=== PATIENT | male | born 1965 | race Caucasian/White ===

== ENCOUNTER 2019-04-21 12:41 | Inpatient (IN) | payer MEDICAID, OTHER ==
[2019-04-21] VITALS (11 sets, daily range): BP systolic 104–135; BP diastolic 63–76; O2SAT 95–96
[~2019-04-21] VITALS: Ht 172.7 cm; Wt 103.2 kg
[2019-04-21] MEDS ORDERED: ONDANSETRON 4MG/2ML VIAL (J2405) As Ordered ONE (12:56)
[2019-04-21] MEDS ORDERED: MORPHINE 2 MG/ML 1ML SYRINGE (J2270) As Ordered ONE (12:56)
[2019-04-21] MEDS ORDERED: NS 1,000 ML IV ONE ×2 (13:00→13:15)
[2019-04-21] MEDS ORDERED: ONDANSETRON 4MG/2ML VIAL (J2405) IV ONE (13:00)
[2019-04-21] MEDS: MORPHINE 2 MG/ML 1ML SYRINGE (J2270) IV PRN ×2 (13:01→13:24)
[2019-04-21] MEDS ORDERED: ISOVUE-370 76% 100ML VIAL (Q9967) As Ordered ONE ×2 (13:06→14:05)
[2019-04-21] MEDS ORDERED: HYDROMORPHONE HCL 0.5 MG/ 0.5 ML SYRINGE (J1170 PER 1) IV PRN (13:30)
[2019-04-21 13:42] LABS: ABG BASE EXCESS -0.9 (-2.0-2.0); ABG HCO3 23.3 MEQ/L (22.0-26.0); ABG O2 SATURATION 94.8 % (95.0-99.0); ABG PARTIAL PRESSURE CO2 37.5 mmHg (35.0-45.0); ABG PARTIAL PRESSURE O2 67.8 mmHg (75.0-100.0); ABG STANDARD HCO3 23.7 MEQ/L (22.0-26.0); ABG TOTAL CO2 24.4 MEQ/L (22.0-29.0); ABG pH (ARTERIAL) 7.411 UNITS (7.350-7.450)
[2019-04-21 13:58] LABS: BASO % 0.2 % (0.0-1.0); EOS % 0.1 % (0.0-3.0); HEMATOCRIT 48.6 % (42.0-52.0); HEMOGLOBIN 16.5 g/dl (13.5-17.5); LYMPH # 0.7 10^3/uL (1.5-4.5); MEAN CORPUSCULAR HEMOGLOBIN 32.6 pg (27.0-33.0); MONO # 1.2 10^3/uL (0.0-0.8); MONO % 6.8 % (0.0-5.0); NEUTROPHILS # 15.5 10^3/uL (1.8-7.7); NEUTROPHILS % 88.5 % (36.0-66.0); PLATELET COUNT, AUTOMATED 225 10^3/uL (150-450); RED BLOOD COUNT 5.06 10^6/uL (4.30-6.10); WHITE BLOOD COUNT 17.6 10^3/uL (4.0-10.0)
--- NOTE | 2019-04-21 14:04 | REP ---
Chest one-view HISTORY: Trauma Comparison: None Apical pleural thickening is present on the right. The lungs are otherwise clear. The heart is normal in size. The pulmonary vasculature is normal in appearance. There are fractures of the right second through fifth ribs. Impression: There are fractures of the right second through fifth ribs. Electronically Signed by Adriano Dan MD 04/21/2019 01:55 P
[2019-04-21 14:08] LABS: INR 0.96; PARTIAL THROMBOPLASTIN TIME 26.9 SECONDS (25.4-37.6); PROTHROMBIN TIME 12.9 SECONDS (12.1-14.4)
--- NOTE | 2019-04-21 14:15 | REP ---
PELVIS, SINGLE VIEW: AP view of the pelvis is performed. There is no evidence of acute fracture, dislocation, or intrinsic bone disease. IMPRESSION: No evidence of acute fracture or dislocation. Electronically Signed by Javi Angel MD 04/23/2019 08:35 A
[2019-04-21 14:22] LABS: ALBUMIN 3.5 GM/DL (3.2-5.2); ALT/SGPT 41 U/L (12-78); AMYLASE 16 U/L (25-115); BILIRUBIN,DIRECT 0.1 MG/DL (0.0-0.2); BILIRUBIN,TOTAL 0.4 MG/DL (0.2-1.0); BLOOD UREA NITROGEN 11 MG/DL (7-18); CALCIUM LEVEL 8.5 MG/DL (8.5-10.1); CARBON DIOXIDE LEVEL 29 MEQ/L (21-32); CHLORIDE LEVEL 100 MEQ/L (98-107); CPK CREATINE PHOSPHOKINASE 492 U/L (39-308); CREATININE FOR GFR 1.14 MG/DL (0.70-1.30); ETHYL ALCOHOL (ETHANOL) < 0.003 % (0.000-0.010); GLOMERULAR FILTRATION RATE > 60.0 (>56); GLUCOSE, FASTING 265 MG/DL (70-100); LIPASE 65 U/L (73-393); MB/CK RELATIVE INDEX 3.15 (< OR =4); SODIUM LEVEL 135 MEQ/L (136-145); TOTAL PROTEIN 7.5 GM/DL (6.4-8.2); TROPONIN I < 0.02 NG/ML (< 0.10)
--- NOTE | 2019-04-21 14:28 | REP ---
CT Head without contrast HISTORY: Trauma COMPARISON: None There is no intraparenchymal hemorrhage, acute infarct, mass or midline shift. The ventricular system is normal in appearance. There is no extra cerebral collection. There is no fracture. Mucosal thickening is present in the left ethmoid and maxillary sinuses. A retention cyst is present in the right maxillary sinus. IMPRESSION: There is no intracranial lesion. Electronically Signed by Adriano Dan MD 04/21/2019 02:20 P
--- NOTE | 2019-04-21 14:37 | REP ---
CT cervical spine without contrast HISTORY: Trauma COMPARISON: None There is no acute fracture or subluxation. A disc bulge is present at the C2-3 level. Disc bulges with associated osteophyte formation are present at the C3-4 through C6-7 levels. These findings produce minimal to mild narrowing of the spinal canal. Uncinate process and/or facet hypertrophy are present at the C3-4 through C6-7 levels. These findings produce minimal to severe narrowing of the neural foramina. C2-3 through C6-7 intervertebral discs are decreased in height consistent with disc degeneration. Subchondral cysts are present in the C6 vertebral body. IMPRESSION: 1. There is no acute fracture or subluxation. 2. There is cervical spondylosis at the C2-3 through C6-7 levels. Electronically Signed by Adriano Dan MD 04/21/2019 02:28 P
--- NOTE | 2019-04-21 15:05 | REP ---
CT CHEST WITHOUT IV CONTRAST: CT chest performed without IV contrast. Sagittal and coronal reconstruction images are performed. There are bilateral fibroatelectatic changes. There is no pneumothorax. Scattered subcentimeter and mediastinal lymph nodes are present. Heart is normal in size. There is no pericardial effusion. There is a large hiatal hernia. There is a tiny right pleural effusion. There are fractures of the right second through ninth ribs as well as the right eleventh rib. The right fourth, sixth and seventh ribs are fractured in two placed. There is also a fracture of the right acromion. No compression fracture is seen of the thoracic vertebral bodies. There are mild diffuse degenerative changes. There is a sebaceous cyst in the left upper chest wall in a subcutaneous location, approximately 4 cm in diameter, and one in the right posterior chest wall 3.5 cm in diameter. IMPRESSION: Bilateral fibroatelectatic changes. Tiny right pleural effusion. No pneumothorax. Multiple right rib fractures, with fractures noted of the right second through ninth ribs as well as right eleventh rib. The right fourth, sixth and seventh ribs are fractured in two places. There is a fracture of the right acromion. Electronically Signed by Javi Angel MD 04/23/2019 08:39 A
--- NOTE | 2019-04-21 15:12 | REP ---
CT ABDOMEN AND PELVIS WITHOUT IV CONTRAST: CT abdomen and pelvis performed without oral or IV contrast. Sagittal and coronal reconstruction images are performed. The liver, spleen, and left adrenal are grossly unremarkable. The pancreas is grossly unremarkable. There is an oval nodule with a right adrenal gland measuring about 4 x 2 cm. This is nonspecific. The kidneys appear intact with a cyst of the mid left kidney measuring approximately 1.4 cm in diameter. There is no hydronephrosis. No perinephric fluid is seen. There is atherosclerotic calcification of the abdominal aorta without aneurysm. I see no adenopathy, free air or free fluid. No bowel wall thickening is seen. There is sigmoid diverticulosis. The appendix is normal. Neumann catheter is seen in a collapsed urinary bladder. There are degenerative changes of the spine with no evidence of lumbar spine fracture. Pelvic bones appear intact. IMPRESSION: No definite visceral organ injury. No free air or free fluid. Nonspecific oval right adrenal nodule 4 x 2 cm. Further evaluation may be made with MRI. Neumann catheter in a collapsed urinary bladder. Electronically Signed by Javi Angel MD 04/23/2019 08:39 A
[2019-04-21] MEDS ORDERED: PERCOCET 5MG/325MG TAB PO PRN ×2 (15:45)
[2019-04-21] MEDS ORDERED: ACETAMINOPHEN TAB 650MG DOSE (2X325MG) PO PRN (15:45)
[2019-04-21] MEDS ORDERED: NORCO, ANEXSIA 5/325MG TABLET (HYDROcodone/ACETAMINOPHEN) PO PRN (15:45)
[2019-04-21] MEDS ORDERED: LEVALBUTEROL 1.25 MG/0.5 ML CONCENTRATE NEB NEB PRN (15:45)
[2019-04-21] MEDS ORDERED: BISACODYL 10 MG SUPP PR PRN (15:45)
[2019-04-21] MEDS ORDERED: ONDANSETRON 4MG/2ML VIAL (J2405) IV PRN ×2 (15:45→17:30)
[2019-04-21] MEDS ORDERED: fentaNYL 100 MCG/2 ML INJECTION (J3010) As Ordered ONE (16:02)
[2019-04-21] MEDS ORDERED: MIDAZOLAM INJ 2 MG/2 ML VIAL (J2250) As Ordered ONE (16:02)
[2019-04-21] MEDS ORDERED: FENTANYL 2MCG/ML BUPIVACAINE 0.0625% NACL 250ML IV BAG As Ordered ONE (16:12)
[2019-04-21] MEDS: fentaNYL 100 MCG/2 ML INJECTION (J3010) IV PRN ×2 (16:37→16:45)
[2019-04-21] MEDS: MIDAZOLAM INJ 2 MG/2 ML VIAL (J2250) IV PRN (16:45)
--- NOTE | 2019-04-21 16:56 | HPEPDOC ---
General Date of Admission Apr 21, 2019 at 15:17 Date of Service: Apr 21, 2019 Chief Complaint The patient is a 54-year-old male admitted with a reason for visit of Ribs,Multiple Fractures. History of Present Illness 54-year-old male with past medical history of polysubstance abuse presented to the ER after he sustained a fall. The patient states that he had climbed a tree and was on a branch 10 feet high with a chainsaw trimming other branches when he lost his balance and fell to the ground landing on his right side. The patient denied any prodromal symptoms of lightheadedness, dizziness, chest pain, palpitations, abdominal pain, shortness of breath, or any nausea/vomiting/diarrhea. He was brought to the ER for further evaluation and management. In the ER, CT imaging of the chest was remarkable for multiple right-sided rib fractures noted from Rib #'s 2-9, and #11. Right Rib #'s 4,6,7 were noted to be fractured in two places. There was also a fracture of the right acromion noted. A tiny right-sided pleural effusion was noted, however no pneumothorax was noted. Thoracic surgery was contacted in the ER and will see the patient in consultation. The patient will be admitted to the hospitalist service for further evaluation and management. Home Medications No Active Prescriptions or Reported Meds Allergies Coded Allergies: No Known Allergies (Unverified , 04/21/19) Past Medical History Medical History As noted in HPI. Social History * Smoker: current smoker (smokes 1-1/2 packs per day for the past 30+ years.) Alcohol: occationally Drugs: other (patient admits to smoking cocaine and meth a few times a week for the past 4 months.) Functionally independent at baseline. States that he does "a little bit of everything for work" Review of Systems Other systems 10 point review of systems negative unless otherwise specified in HPI. Physical Examination General Exam: Positive: Alert, Cooperative, Moderate Distress (2/2 rib fractur es, pain) ENT Exam: Positive: Mucous membr. moist/pink, Other ENT (edentulous) Neck Exam: Negative: JVD Chest Exam: Positive: Diminished Heart Exam: Positive: Rate Normal, Normal S1, Normal S2 Abdomen Exam: Positive: Soft; Negative: Tenderness Extremity Exam: Negative: Tenderness, Swelling Psych Exam: Positive: Oriented x 3 Vital Signs Vital Signs Date Time Temp Pulse Resp B/P (MAP) Pulse Ox O2 Delivery O2 Flow Rate FiO2 04/21/19 16:35 92 22 133/73 (93) 95 3 04/21/19 16:16 97.2 04/21/19 12:41 Room Air Laboratory Data Labs 24H Laboratory Tests 2 04/21/19 13:32: Bedside Glucose (Misc Panel) 291H 04/21/19 13:35: Blood Gas Bicarbonate Standard 23.7, Arterial Blood pH 7.411, Arterial Blood Partial Pressure CO2 37.5, Arterial Blood Partial Pressure O2 67.8L, Arterial Blood Total CO2 24.4, Arterial Blood HCO3 23.3, Arterial Blood Base Excess -0.9, Arterial Blood Oxygen Saturation 94.8L 04/21/19 13:45: Immature Granulocyte % (Auto) 0.4, White Blood Count 17.6H, Red Blood Count 5.06, Hemoglobin 16.5, Hematocrit 48.6, Mean Corpuscular Volume 96.0, Mean Corpuscular Hemoglobin 32.6, Mean Corpuscular Hemoglobin Concent 34.0, Red Cell Distribution Width 12.6, Platelet Count 225, Neutrophils (%) (Auto) 88.5H, Lymphocytes (%) (Auto) 4.0L, Monocytes (%) (Auto) 6.8H, Eosinophils (%) (Auto) 0.1, Basophils (%) (Auto) 0.2, Neutrophils # (Auto) 15.5H, Lymphocytes # (Auto) 0.7L, Monocytes # (Auto) 1.2H, Eosinophils # (Auto) 0.0, Basophils # (Auto) 0.0, Nucleated Red Blood Cells % (auto) 0.0, Prothrombin Time 12.9, Prothromb Time International Ratio 0.96, Activated Partial Thromboplast Time 26.9, Anion Gap 6L, Glomerular Filtration Rate > 60.0, Lactic Acid Level 2.3*H, Calcium Level 8.5, Aspartate Amino Transf (AST/SGOT) 51H, Alanine Aminotransferase (ALT/SGPT) 41, Alkaline Phosphatase 98, Total Bilirubin 0.4, Direct Bilirubin 0.1, Total Creatine Kinase 492H, Creatine Kinase MB 16.0H, Creatine Kinase MB Relative Index 3.15, Troponin I < 0.02, Total Protein 7.5, Albumin 3.5, Albumin/Globulin Ratio 0.88L, Amylase Level 16L, Lipase 65L, Ethyl Alcohol Level < 0.003 04/21/19 13:46: POC Glucose (Misc Panel) 276H, POC Sodium (Misc Panel) 136, POC Potassium (Misc Panel) 4.1, POC Chloride (Misc Panel) 97L, POC Total CO2 (Misc Panel) 25.0, POC Blood Urea Nitrogen (Misc Panel 10, POC Ionized Calcium (Misc Panel) 4.4L, POC Creatinine (Misc Panel) 0.9, POC Hematocrit (Misc Panel) 50.0 04/21/19 13:51: POC Lactate (Misc Panel) 2.19*H 04/21/19 14:24: Bedside Prothrombin Time INR 1.0, Prothrombin Time (MISC) 12.4 04/21/19 16:39: Bedside Glucose (Misc Panel) 193H CBC/BMP Laboratory Tests 04/21/19 13:45 Red Blood Count 5.06, Mean Corpuscular Volume 96.0, Mean Corpuscular Hemoglobin 32.6, Mean Corpuscular Hemoglobin Concent 34.0, Red Cell Distribution Width 12.6, Neutrophils (%) (Auto) 88.5 H, Lymphocytes (%) (Auto) 4.0 L, Monocytes (%) (Auto) 6.8 H, Eosinophils (%) (Auto) 0.1, Basophils (%) (Auto) 0.2, Neutrophils # (Auto) 15.5 H, Lymphocytes # (Auto) 0.7 L, Monocytes # (Auto) 1.2 H, Eosinophils # (Auto) 0.0, Basophils # (Auto) 0.0 Plan / VTE VTE Prophylaxis Ordered?: Yes Plan Plan Multiple Right Sided Rib Fracture, Right Acromion Fracture 2/[address] imaging of the chest was remarkable for multiple right-sided rib fractures noted from Rib #'s 2-9, and #11. Right Rib #'s 4,6,7 were noted to be fractured in two places. There was also a fracture of the right acromion noted Patient hemodynamically stable and saturating 96% on 2L via NC Pain control, PEP, Incentive Spirometry, Telemetry monitoring as ordered Follow up CXR in the AM Anesthesia consulted for epidural for pain control Thoracic surgery to see the patient for for further evaluation Lactic Acidosis 2/2 Above IVF Hydration ordered We will trend lactic acid level Hyperglycemia Patient reports history of "borderline diabetes" from 3 yrs ago when he saw a PCP last Will order HgbA1c Hx of Polysubstance Abuse Patient admits to intermittently smoking cocaine/meth--counseled on cessation Denies alcohol or heroin use We will cont to closely monitor the patient DVT Prophylaxis Heparin FREDIS GOMEZ MD Apr 21, 2019 16:56
[2019-04-21] MEDS ORDERED: BUPIVACAINE HCL 0.25% 30 ML VIAL As Ordered ONE (17:17)
[2019-04-21] MEDS ORDERED: METOCLOPRAMIDE INJ 10MG/2ML VIAL (J2765) IV PRN (17:30)
[2019-04-21] MEDS ORDERED: NALOXONE INJ 0.4 MG/1 ML VIAL (J2310) IV PRN (17:30)
[2019-04-21] MEDS ORDERED: WALLBOXKEY XX PRN (17:30)
[2019-04-21] MEDS ORDERED: diphenhydrAMINE INJ 50MG/ML VIAL (J1200) IV PRN (17:30)
[2019-04-21] MEDS ORDERED: EPIDURAL/PCA KEYS XX PRN (17:30)
[2019-04-21] MEDS: KETOROLAC 30 MG/ML VIAL (J1885) IV SCH (18:00)
[2019-04-21] MEDS: FENTANYL/BUPIVACAINE/NACL BAG 250 ML EPIDURAL SCH (18:12)
[2019-04-21] MEDS ORDERED: KETOROLAC 30 MG/ML VIAL (J1885) As Ordered ONE (18:15)
[2019-04-21] MEDS: KCL 20MEQ IN D5/NS 1000ML 1,000 ML IV SCH (18:44)
[2019-04-21] MEDS ORDERED: BUPIVACAINE/EPIN 0.25% 30 ML VIAL ONE (19:08)
[2019-04-21] MEDS: HEPARIN SOD (PORCINE) 5000 UNITS/ML VIAL SC SCH (20:36)
[2019-04-21] MEDS: DOCUSATE SODIUM 100 MG CAP PO SCH (20:36)
[2019-04-21] MEDS: LEVALBUTEROL 1.25 MG/0.5 ML CONCENTRATE NEB NEB SCH (22:04)
[2019-04-22] VITALS (21 sets, daily range): BP systolic 115–174; BP diastolic 67–86; O2SAT 93–95
[2019-04-22] MEDS: KETOROLAC 30 MG/ML VIAL (J1885) IV SCH ×4 (00:19→17:25)
[2019-04-22] MEDS: LEVALBUTEROL 1.25 MG/0.5 ML CONCENTRATE NEB NEB SCH ×4 (02:00→19:51)
[2019-04-22 05:28] LABS: BASO % 0.3 % (0.0-1.0); EOS % 0.3 % (0.0-3.0); HEMATOCRIT 41.9 % (42.0-52.0); HEMOGLOBIN 13.8 g/dl (13.5-17.5); LYMPH # 1.2 10^3/uL (1.5-4.5); LYMPH % 15.2 % (24.0-44.0); MEAN CORPUSCULAR HEMOGLOBIN 31.7 pg (27.0-33.0); MEAN CORPUSCULAR HGB CONC 32.9 g/dl (32.0-36.5); MEAN CORPUSCULAR VOLUME 96.1 fl (80.0-96.0); MONO # 0.9 10^3/uL (0.0-0.8); MONO % 11.7 % (0.0-5.0); NEUTROPHILS # 5.7 10^3/uL (1.8-7.7); NEUTROPHILS % 72.2 % (36.0-66.0); PLATELET COUNT, AUTOMATED 181 10^3/uL (150-450); RED BLOOD COUNT 4.36 10^6/uL (4.30-6.10); WHITE BLOOD COUNT 7.9 10^3/uL (4.0-10.0)
[2019-04-22] MEDS: KCL 20MEQ IN D5/NS 1000ML 1,000 ML IV SCH (05:29)
[2019-04-22 05:50] LABS: HEMOGLOBIN A1c 7.3 %
[2019-04-22 05:56] LABS: ABG HCO3 24.4 MEQ/L (22.0-26.0); ABG O2 SATURATION 93.2 % (95.0-99.0); ABG PARTIAL PRESSURE CO2 43.3 mmHg (35.0-45.0); ABG PARTIAL PRESSURE O2 65.7 mmHg (75.0-100.0); ABG STANDARD HCO3 23.5 MEQ/L (22.0-26.0); ABG TOTAL CO2 25.7 MEQ/L (22.0-29.0); ABG pH (ARTERIAL) 7.369 UNITS (7.350-7.450)
[2019-04-22 05:59] LABS: ALBUMIN 2.7 GM/DL (3.2-5.2); ALT/SGPT 29 U/L (12-78); BILIRUBIN,TOTAL 0.5 MG/DL (0.2-1.0); BLOOD UREA NITROGEN 12 MG/DL (7-18); CALCIUM LEVEL 8.1 MG/DL (8.5-10.1); CARBON DIOXIDE LEVEL 29 MEQ/L (21-32); CHLORIDE LEVEL 107 MEQ/L (98-107); CHOLESTEROL LEVEL 124 MG/DL (<200); CHOLESTEROL RISK RATIO 4.428 (<5); CPK CREATINE PHOSPHOKINASE 632 U/L (39-308); CREATININE FOR GFR 0.79 MG/DL (0.70-1.30); GLOMERULAR FILTRATION RATE > 60.0 (>56); GLUCOSE, FASTING 134 MG/DL (70-100); HDL CHOLESTEROL 28 MG/DL (>40); LDL CHOLESTEROL 71 MG/DL (<100); MAGNESIUM LEVEL 2.3 MG/DL (1.8-2.4); NON-HDL-C 96 MG/DL; POTASSIUM SERUM 4.2 MEQ/L (3.5-5.1); SODIUM LEVEL 140 MEQ/L (136-145); TOTAL PROTEIN 6.3 GM/DL (6.4-8.2); TRIGLYCERIDES LEVEL 126 MG/DL (<150)
--- NOTE | 2019-04-22 07:46 | ECGEPIP ---
[facility] - ED Test Date: 2019-04-21 Pat Name: MANPREET BAILEY Department: Room: - Gender: Male Field Consultant: TC : 1965 Requested By: JEREMY Lares Order Number: [id number] Reading MD: Lashaun Lawson Measurements Intervals [place] Rate: 94 P: 70 ID: [id number] QRS: 39 QRSD: 94 T: 66 QT: 357 QTc: 449 Interpretive Statements SINUS RHYTHM POSSIBLE RIGHT VENTRICULAR CONDUCTION DELAY NO PRIOR FOR COMPARISON Electronically Signed on 04-22-2019 7:45:56 EDT by Lashaun Lawson
[2019-04-22] MEDS: DOCUSATE SODIUM 100 MG CAP PO SCH ×2 (08:18→20:06)
[2019-04-22] MEDS: MOM 30ML SUSPENSION UDC PO SCH (08:18)
[2019-04-22] MEDS: PANTOPRAZOLE 40MG TAB (PROTONIX) PO SCH (08:18)
[2019-04-22] MEDS: HEPARIN SOD (PORCINE) 5000 UNITS/ML VIAL SC SCH ×2 (08:19→20:06)
--- NOTE | 2019-04-22 14:56 | CR ---
DATE OF CONSULTATION: 04/22/2019 REASON FOR CONSULTATION: Patient was seen at the request of the emergency room, Dr. Lombardo, and the hospitalist service for multiple fracture ribs. HISTORY OF PRESENT ILLNESS: The patient is a 54-year-old white male who was cutting a limb of a tree while he was on a ladder. He slipped on the ladder and fell 15 feet to the ground. He does not think that he hit anything on the ground except for the tree stump. He immediately felt pain and shortness of breath. He was therefore taken to the emergency room where he was found to have multiple rib fractures. Prior to this, he had a chronic cough but does not complain of shortness of breath. He has had no chest pain prior to this, nor has he had fevers, chills or sweats or dysphagia. He has changed his diet and he has lost about 50 pounds over the past year from 370 pounds to 320 pounds. PAST MEDICAL HISTORY: None that he knows of. He stopped taking all medicines about three years ago. He does not know what they were for. MEDICATIONS AT HOME: None. ALLERGIES: None. HABITS: Smokes one and a half packs of cigarettes per day for approximately 30 years. He obtains his cigarettes from the [facility]. He occasionally imbibes alcohol and occasionally uses cocaine, meth and marijuana. He does this a few times a week. 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 There is no convincing overt asbestos exposure. TRAVEL HISTORY: He was born in [place], but came back to the [place]. [place] been [place] [facility], down to [place], [place] and [place]. He was in the as was his family. EXPOSURES: Currently, no dogs, cats or birds at home. No known exposure to tuberculosis. FAMILY HISTORY: Not pertinent to the acute situation. REVIEW OF SYSTEMS: CONSTITUTIONAL: See HPI. Without fevers, chills, sweats or night sweats. He does have intended weight loss. EYES: Without diplopia. Without amaurosis fugax. Without prior jaundice. NOSE: Without epistaxis. MOUTH: He is edentulous on the upper plate, has teeth on the lower. He used to have dentures on the upper. RESPIRATORY: See history of present illness. CARDIAC: Without prior myocardial infarctions. Without peripheral edema. Without intermittent claudication. Without anginal type chest pain. GASTROINTESTINAL (GI): Without nausea, vomiting, diarrhea, melena, hematochezia or hematemesis. GENITOURINARY (): Without dysuria, hematuria or history of renal stones. NEUROLOGIC: Without paresthesia, paralyses or prior seizures. ENDOCRINE: Without known diabetes or thyroid disease. PSYCHIATRIC: Without pathological anxieties, depression or psychoses. Does have the above substance abuse. HEMATOLOGIC: Without prolonged bleeding times. PHYSICAL EXAMINATION: GENERAL: Well-developed obese white male in some distress with pain, but with an epidural catheter in and running at 10 mL per hour. VITAL SIGNS: Temperature is 97.6 with a pulse of 87 and sinus rhythm, respiratory rate of 22 without the use of accessory muscles, who is now 90% saturated on 2 liters nasal cannula, with a blood pressure of 142/78. EYES: Pupils equal, round and reactive to light. Extraocular motors intact. Sclera nonicteric. NOSE: Without deformity. MOUTH: Shows an edentulous upper plate with multiple missing teeth on the bottom. Mucous membranes are pink and moist. Lips and commissures without lesions There is no thrush. NECK: Supple. There is some jugular venous distention (JVD), no subcutaneous emphysema. Trachea is midline. He has 2+ carotid upstrokes. There is no lymphadenopathy or thyromegaly. LUNGS: Show equal breath sounds on either side with some rhonchi which do not completely clear with coughing on the right side in the mid lung field. Percussion notes are full to the diaphragm. He is tender in the posterolateral chest. CARDIAC EXAM: Without murmurs, clicks, gallops or rubs. I cannot feel his point of maximal impulse (PMI). S1 and S2 are normal. ABDOMEN: Soft, nontender. Bowel sounds are positive. There is no hepatomegaly. No costovertebral angle (CVA) tenderness on the left, with CVA secondary to his rib fractures on the right. EXTREMITIES: Show no pretibial edema. No calf tenderness. No differential swelling of the upper extremities. SKIN: Warm, dry and perfused without cyanosis or mottling including that of the nail beds and the knees. NEURO: Shows II through XII intact, along with gross motor and gross sensation intact. Gait is not tested. PSYCHIATRIC: Shows him to be awake and alert, oriented times three with appropriate mood and affect and conversational. His white count today is 7.9, down from 17.6 yesterday. Hemoglobin and hematocrit are 13.8 and 41.9, down from 16.5 and 48.6 after rehydration. Platelet count is 181 and is stable, and differential shows 72% neutrophils, 15% lymphocytes, 11% monocytes. There are no immature forms. No toxic granulations. His electrolytes today are normal with a BUN and creatinine of 12 and 0.79, glucose of 134, and calcium if 8.1 with a corresponding albumin of 2.7. LFTs are normal. Hemoglobin A1c is 7.3. PT/INR are 12.9 and 0.96 with a PTT of 26 seconds. His chest x-ray today shows a diffuse mild opacity in the right lower hemithorax. The lateral film however shows more meniscus in the costophrenic angle, which may represent hemothorax. Lung is fully expanded to the chest wall. His chest CT of his chest yesterday shows multiple rib fractures of ribs 3, 4, 5, 6, 7, 8, 9, maybe 10, and 11. There is no flail segment. Liver is intact as is his spleen. Both kidneys look to be intact. Lung is fully expanded to the chest wall and I do not see a pneumothorax. He does have emphysematous changes throughout, particularly in the upper lobes consistent with emphysema. There is no appreciable pathologic mediastinal lymphadenopathy. Great vessels are intact. He does have coronary artery disease (CAD) and it looks as though his left main coronary artery has a calcification. IMPRESSION: 1. Multiple rib fractures secondary to fall without prior syncope. 2. Probable small right hemothorax. 3. Obesity. 4. Tobacco abuse. 5. Occasional cocaine and meth abuse. 6. Probable diabetes. PLAN AND DISCUSSION: The mainstay of his rib fracture treatment is pain control. An epidural has already been placed. He does have pain when he coughs and takes a deep breath. I have asked them to increase his epidural to 12. I have also asked him to use his incentive spirometer every 10 minutes at least six times an hour. We will follow his chest x-rays for accumulation of hemothorax and he may very well need another CT at some point in time to evaluate the costophrenic angle.
[2019-04-22] MEDS ORDERED: SLF 3 ML SYR IV PRN (16:00)
--- NOTE | 2019-04-22 16:06 | REP ---
Chest two views HISTORY: Right rib fractures Comparison: 04/21/2019 Patchy density is present in the right lower lobe consistent with atelectasis or infiltrate. The left lung is clear. The heart is normal in size. The pulmonary vasculature is normal in appearance. There are multiple right rib fractures. IMPRESSION: Right lower lobe atelectasis or infiltrate. Electronically Signed by Adriano Dan MD 04/22/2019 03:58 P
[2019-04-22] MEDS: FENTANYL/BUPIVACAINE/NACL BAG 250 ML EPIDURAL SCH (17:05)
[2019-04-22] MEDS: SLF 3 ML SYR IV SCH (20:06)
--- NOTE | 2019-04-22 22:04 | IPNPDOC ---
Subjective Date Seen The patient was seen on 04/22/19. Subjective Chief Complaint/HPI Upon the encounter pt is sitting on the chair , No acute distress, denies any dyspnea or chest pain. Pain states pain is well controlled. General: Reports: Normal Appetite; Denies: Chills, Night Sweats, Fatigue, Malaise Constitutional: Denies: Chills, Fever, Night Sweats Eyes: Denies: Pain, Vision change ENT: Denies: Head Aches, Ear Pain, Dysphagia Skin: Denies: Rash, Lesions, Breakdown Pulmonary: Denies: Dyspnea, Cough Cardiovascular: Denies: Chest Pain, Palpitations, Orthopnea, Paroxysmal Noc. Dyspnea, Lt Headedness Gastrointestinal: Denies: Nausea, Vomiting, Abdominal Pain, Diarrhea, Constipation Musculoskeletal: Denies: Neck Pain, Back Pain, Joint Pain, Muscle Pain, Spasms Objective Physical Examination General Exam: Positive: Alert, Cooperative, Moderate Distress (2/2 rib fractures, pain) ENT Exam: Positive: Mucous membr. moist/pink, Other ENT (edentulous) Neck Exam: Negative: JVD Chest Exam: Positive: Diminished Heart Exam: Positive: Rate Normal, Normal S1, Normal S2 Abdomen Exam: Positive: Soft; Negative: Tenderness Extremity Exam: Negative: Tenderness, Swelling Psych Exam: Positive: Oriented x 3 Assessment /Plan Assessment Pt s/p fall sustained multiple fractures on epidural pain control by anesthesia. Hemodynamically stable , O2 sat >90. Will cont to monitor closely. Cont current meds. Plan/VTE VTE Prophylaxis Ordered?: Yes VS, I&O, 24H, Fishbone Vital Signs/I&O Vital Signs Date Time Temp Pulse Resp B/P (MAP) Pulse Ox O2 Delivery O2 Flow Rate FiO2 04/22/19 20:00 95 Nasal Cannula 2.0 04/22/19 20:00 97.4 102 22 174/86 (115) I&O- Last 24 Hours up to 6 AM 04/22/19 06:00 Intake Total 1882 ml Output Total 650 ml Balance 1232 ml Laboratory Data 24H LABS Laboratory Tests 2 04/22/19 05:02: Immature Granulocyte % (Auto) 0.3, White Blood Count 7.9, Red Blood Count 4.36, Hemoglobin 13.8#, Hematocrit 41.9L, Mean Corpuscular Volume 96.1H, Mean Corpuscular Hemoglobin 31.7, Mean Corpuscular Hemoglobin Concent 32.9, Red Cell Distribution Width 12.8, Platelet Count 181, Neutrophils (%) (Auto) 72.2H, Lymphocytes (%) (Auto) 15.2L, Monocytes (%) (Auto) 11.7H, Eosinophils (%) (Auto) 0.3, Basophils (%) (Auto) 0.3, Neutrophils # (Auto) 5.7, Lymphocytes # (Auto) 1.2L, Monocytes # (Auto) 0.9H, Eosinophils # (Auto) 0.0, Basophils # (Auto) 0.0, Nucleated Red Blood Cells % (auto) 0.0, Anion Gap 4L, Glomerular Filtration Rate > 60.0, Estimated Mean Plasma Glucose 163H, Hemoglobin A1c 7.3, Blood Urea Nitrogen 12, Creatinine 0.79, Sodium Level 140, Potassium Level 4.2, Chloride Level 107, Carbon Dioxide Level 29, Calcium Level 8.1L, Aspartate Amino Transf (AST/SGOT) 31, Alanine Aminotransferase (ALT/SGPT) 29, Total Creatine Kinase 632H, Alkaline Phosphatase 77, Total Bilirubin 0.5, Triglycerides Level 126, LDL Cholesterol 71, Total Protein 6.3L, Albumin 2.7#L, Magnesium Level 2.3, Albumi n/Globulin Ratio 0.75L, Total Cholesterol 124, Non-HDL Cholesterol (LDL + VLDL) 96, Total HDL Cholesterol 28L, Cholesterol/HDL Ratio 4.428 04/22/19 05:49: Blood Gas Bicarbonate Standard 23.5, Arterial Blood pH 7.369, Arterial Blood Partial Pressure CO2 43.3, Arterial Blood Partial Pressure O2 65.7L, Arterial Blood Total CO2 25.7, Arterial Blood HCO3 24.4, Arterial Blood Base Excess -1.0, Arterial Blood Oxygen Saturation 93.2L CBC/BMP Laboratory Tests 04/22/19 05:02 Red Blood Count 4.36, Mean Corpuscular Volume 96.1 H, Mean Corpuscular Hemoglobin 31.7, Mean Corpuscular Hemoglobin Concent 32.9, Red Cell Distribution Width 12.8, Neutrophils (%) (Auto) 72.2 H, Lymphocytes (%) (Auto) 15.2 L, Monocytes (%) (Auto) 11.7 H, Eosinophils (%) (Auto) 0.3, Basophils (%) (Auto) 0.3, Neutrophils # (Auto) 5.7, Lymphocytes # (Auto) 1.2 L, Monocytes # (Auto) 0.9 H, Eosinophils # (Auto) 0.0, Basophils # (Auto) 0.0, Calcium Level 8.1 L, Aspartate Amino Transf (AST/SGOT) 31, Alanine Aminotransferase (ALT/SGPT) 29, Total Creatine Kinase 632 H, Alkaline Phosphatase 77, Total Bilirubin 0.5, Triglycerides Level 126, LDL Cholesterol 71, Total Protein 6.3 L, Albumin 2.7 #L OBED MCDUFFIE MD Apr 22, 2019 22:04
[2019-04-23] VITALS (13 sets, daily range): BP systolic 137–164; BP diastolic 67–87; O2SAT 89–95
[2019-04-23] MEDS: KETOROLAC 30 MG/ML VIAL (J1885) IV SCH ×4 (00:05→17:57)
[2019-04-23] MEDS: LEVALBUTEROL 1.25 MG/0.5 ML CONCENTRATE NEB NEB SCH ×4 (01:32→20:18)
[2019-04-23] MEDS ORDERED: BENZONATATE 100 MG CAP PO PRN (01:45)
[2019-04-23 05:34] LABS: BASO % 0.2 % (0.0-1.0); EOS # 0.1 10^3/uL (0.0-0.50); EOS % 0.9 % (0.0-3.0); HEMATOCRIT 40.9 % (42.0-52.0); HEMOGLOBIN 13.5 g/dl (13.5-17.5); LYMPH # 1.3 10^3/uL (1.5-4.5); LYMPH % 15.4 % (24.0-44.0); MEAN CORPUSCULAR HEMOGLOBIN 32.8 pg (27.0-33.0); MEAN CORPUSCULAR VOLUME 99.3 fl (80.0-96.0); MONO # 0.8 10^3/uL (0.0-0.8); MONO % 10.2 % (0.0-5.0); NEUTROPHILS # 5.9 10^3/uL (1.8-7.7); NEUTROPHILS % 73.1 % (36.0-66.0); PLATELET COUNT, AUTOMATED 170 10^3/uL (150-450); RED BLOOD COUNT 4.12 10^6/uL (4.30-6.10); WHITE BLOOD COUNT 8.1 10^3/uL (4.0-10.0)
[2019-04-23] MEDS: SLF 3 ML SYR IV SCH ×3 (05:39→20:41)
[2019-04-23 05:43] LABS: BLOOD UREA NITROGEN 9 MG/DL (7-18); CALCIUM LEVEL 8.2 MG/DL (8.5-10.1); CARBON DIOXIDE LEVEL 29 MEQ/L (21-32); CHLORIDE LEVEL 105 MEQ/L (98-107); CREATININE FOR GFR 0.77 MG/DL (0.70-1.30); GLOMERULAR FILTRATION RATE > 60.0 (>56); GLUCOSE, FASTING 121 MG/DL (70-100); POTASSIUM SERUM 4.6 MEQ/L (3.5-5.1); SODIUM LEVEL 139 MEQ/L (136-145)
[2019-04-23] MEDS: DOCUSATE SODIUM 100 MG CAP PO SCH ×2 (08:39→20:41)
[2019-04-23] MEDS: PANTOPRAZOLE 40MG TAB (PROTONIX) PO SCH (08:39)
--- NOTE | 2019-04-23 08:39 | REP ---
Clinical: History of rib fractures. Technique: AP and lateral views of the chest. Comparison: 04/22/2019. Findings: Examination is limited by technique and underpenetration. Multiple right rib fractures are again noted along with bilateral pleural effusions and basilar atelectasis (right greater than left) which appears slightly increased from prior examination. No obvious pneumothorax. Mediastinum and cardiac silhouette are stable within normal limits. Impression: Small to moderate pleural effusions (right greater than left) with associated bibasilar opacities suggesting elements of atelectasis. Stable right rib fractures. No obvious pneumothorax. Electronically Signed by Rodriguez Vasquez MD 04/23/2019 08:31 A
[2019-04-23] MEDS: HEPARIN SOD (PORCINE) 5000 UNITS/ML VIAL SC SCH ×2 (08:40→20:40)
[2019-04-23] MEDS: MOM 30ML SUSPENSION UDC PO SCH (09:00)
[2019-04-23] MEDS: FENTANYL/BUPIVACAINE/NACL BAG 250 ML EPIDURAL SCH (09:26)
--- NOTE | 2019-04-23 13:32 | IPN ---
DATE: 04/23/2019 Mr. Bland is in a considerable amount of pain when he moves around and takes deep breath and coughs. If he stays sill in bed, he does not have pain. He has had flatus but no bowel movement. His vital signs show a maximum temperature (Tmax) of 97.8 with a heart rate that ranges between 97-87 in a sinus rhythm, respiratory rate of 18-20 without the use of accessory muscles, who is 97-89% saturated on 2 liters nasal cannula. Blood pressure is ranging between 137/80-152/81. His intake and output for the past 24 hours has been recorded as 3212 in and 1000 out for a positivity of 2212 mL. He has taken in 2140 mL from oral intake and 1072 mL in IV intake. He has had 1000 mL out in urine. His weight today is 105.6 kg compared to 103.8 kg yesterday. On physical examination, he has rales and rhonchi in the right lower hemithorax. Percussion note is also dull at the right hemithorax. Left side shows normal vesicular sounds. Percussion note is full to the diaphragm on the left side. Cardiac exam without murmurs, clicks, gallops, or rubs. I cannot feel his point of maximal impulse (PMI). S1, S2 are normal. Abdomen is soft and nontender. Bowel sounds are positive. He is distended and tympanitic. There is no hepatomegaly that I can feel. There is no costovertebral angle (CVA) tenderness on the left. costovertebral angle tenderness. CVA tenderness on the right is referable to his rib fractures. Extremities show 1+ pretibial edema and no calf tenderness. No differential swelling of the upper extremities. Skin is warm, dry, and perfused without cyanosis or mottling, including that of the nail beds and the knees. Neck is supple. There is no jugular venous distention. No subcutaneous emphysema. Trachea is midline. Mouth shows the mucous membranes to be pink and moist. Lips and commissures are without lesions. There is no thrush. Eyes show his pupils to be equal and reactive. Extraocular motor intact. Sclerae are nonicteric. Neurologic shows II-XII intact along with gross motor and gross sensation intact. Gait is not tested. Psychiatric exam shows him to be awake and alert, oriented times three with appropriate mood and affect, and conversational. His white count today is 8.1 with hemoglobin and hematocrit of 13.5 and 40.9, unchanged from yesterday, with a platelet count of 117 and stable. Differential shows 70% neutrophils, 15% lymphocytes, 10% monocytes. There are no immature forms or toxic granulations reported. Chemistries show normal electrolytes with BUN and creatinine of 9 and 0.77, glucose of 121 and a calcium of 8.2. His chest x-ray today shows an increasing opacity in the right lower hemithorax. The costophrenic angle is now blunted on the right side. He has some volume loss on the right side. The lateral film shows an increase in the meniscus posteriorly. Because of the x-ray findings, I therefore obtained a CT scan of this chest today looking for hemothorax and/or atelectasis. What I find is that he does have some fluid in the costophrenic angle, however most of the opacity is attributable to atelectasis of his right lower lobe. Liver is still intact. IMPRESSION: 1. Multiple rib fractures right side status post a 15 foot fall. 2. Small hemothorax. 3. Severe atelectasis of right lower lobe. 4. Tobacco abuse. 5. Obesity. 6. Occasional past history of cocaine and meth abuse. 7. Probable diabetes. PLAN AND DISCUSSION: I have asked the nurses to call anesthesia to re-evaluate the epidural. He is on 12 and he still in considerable pain with coughing and deep breathing. This resulted atelectasis. There is a small no doubt hemothorax but it is certainly not big enough to drain and is contributing very little to the actual opacity on the chest x-ray. He needs vigorous chest expansion therapy. I have again asked him to use his incentive spirometry at least once every 10 minutes or six times an hour.
[2019-04-23] MEDS: SODIUM CHLORIDE 0.9% 3ML NEB SOLUTION FOR INHALATION INH SCH (20:19)
[2019-04-24] VITALS (22 sets, daily range): BP systolic 118–154; BP diastolic 68–86; O2SAT 87–94
[2019-04-24] MEDS: KETOROLAC 30 MG/ML VIAL (J1885) IV SCH ×5 (00:26→23:20)
[2019-04-24] MEDS: FENTANYL/BUPIVACAINE/NACL BAG 250 ML EPIDURAL SCH ×2 (01:44→19:14)
[2019-04-24] MEDS: LEVALBUTEROL 1.25 MG/0.5 ML CONCENTRATE NEB NEB SCH ×4 (01:51→20:07)
[2019-04-24] MEDS: SODIUM CHLORIDE 0.9% 3ML NEB SOLUTION FOR INHALATION INH SCH ×4 (02:00→20:07)
--- NOTE | 2019-04-24 04:31 | IPNPDOC ---
Text Note Date of Service The patient was seen on 04/23/19. NOTE Chief Complaint/HPI Pt was seen and examined at bedside. Pt is sitting in chair. Awake, a;ert ad oriented. Analgesia via epidural is ongoing. Pt refers adequate pain control. Denies any dizziness. Pt is in no acute distress. Denies any dyspnea. General: Reports: Normal Appetite; Denies: Chills, Night Sweats, Fatigue, Malaise Constitutional: Denies: Chills, Fever, Night Sweats Eyes: Denies: Pain, Vision change ENT: Denies: Head Aches, Ear Pain, Dysphagia Skin: Denies: Rash, Lesions, Breakdown Pulmonary: Denies: Dyspnea, Cough Cardiovascular: Denies: Chest Pain, Palpitations, Orthopnea, Paroxysmal Noc. Dyspnea, Lt Headedness Gastrointestinal: Denies: Nausea, Vomiting, Abdominal Pain, Diarrhea, Constipation Musculoskeletal: Denies: Neck Pain, Back Pain, Joint Pain, Muscle Pain, Spasms Physical Examination General Exam: Positive: Alert, Cooperative, Moderate Distress (2/2 rib fractures, pain) ENT Exam: Positive: Mucous membr. moist/pink, Other ENT (edentulous) Neck Exam: Negative: JVD Chest Exam: Positive: Diminished Heart Exam: Positive: Rate Normal, Normal S1, Normal S2 Abdomen Exam: Positive: Soft; Negative: Tenderness Extremity Exam: Negative: Tenderness, Swelling Psych Exam: Positive: Oriented x 3 Vital Signs Date Time Temp Pulse Resp B/P (MAP) Pulse Ox O2 Delivery O2 Flow Rate FiO2 04/24/19 04:00 97.9 86 20 131/86 (101) 95 2.0 04/24/19 01:51 Nasal Cannula 2.0 04/24/19 00:00 2.0 04/23/19 23:59 98.5 87 20 138/83 (101) 95 2.0 04/23/19 20:19 Nasal Cannula 2.0 04/23/19 20:00 2.0 04/23/19 20:00 98.2 93 20 153/87 (109) 94 2.0 04/23/19 16:00 2.0 04/23/19 16:00 90 Nasal Cannula 2.0 04/23/19 16:00 98.3 107 18 149/67 (94) 88 2.0 04/23/19 13:36 97.3 97 22 164/74 (104) 94 3.0 04/23/19 12:01 2.0 04/23/19 12:01 90 Nasal Cannula 2.0 04/23/19 12:00 97.3 86 22 146/78 (100) 97 2.0 04/23/19 08:01 2.0 04/23/19 08:01 89 Nasal Cannula 2.0 04/23/19 08:00 97.6 87 20 137/80 (99) 93 2.0 Intake & Output 04/24/19 06:00 Intake Total 1680 ml Output Total 925 ml Balance 755 ml Laboratory Tests 04/23/19 05:08: White Blood Count 8.1, Red Blood Count 4.12L, Hemoglobin 13.5, Hematocrit 40.9L, Mean Corpuscular Volume 99.3H, Mean Corpuscular Hemoglobin 32.8, Mean Corpuscular Hemoglobin Concent 33.0, Red Cell Distribution Width 12.9, Platelet Count 170, Neutrophils (%) (Auto) 73.1H, Lymphocytes (%) (Auto) 15.4L, Monocytes (%) (Auto) 10.2H, Eosinophils (%) (Auto) 0.9, Basophils (%) (Auto) 0.2, Neutrophils # (Auto) 5.9, Lymphocytes # (Auto) 1.3L, Monocytes # (Auto) 0.8, Eosinophils # (Auto) 0.1, Basophils # (Auto) 0.0, Immature Granulocyte % (Auto) 0.2, Nucleated Red Blood Cells % (auto) 0.0, Blood Urea Nitrogen 9, Creatinine 0.77, Sodium Level 139, Potassium Level 4.6, Chloride Level 105, Carbon Dioxide Level 29, Calcium Level 8.2L, Anion Gap 5L, Glomerular Filtration Rate > 60.0, Fasting Glucose 121H Current Medications Medications (Trade) Dose Ordered Sig/Willem Route PRN Reason Start Time Stop Time Status Last Admin Dose Admin Benzonatate (Tessalon Perles) 100 mg TIDP PRN PO COUGH 04/23/19 01:45 04/23/19 01:48 100 MG Docusate Sodium (Colace) 100 mg BID PO 04/21/19 21:00 04/23/19 20:41 100 MG Fentanyl/ Bupivacaine HCl 250 ml @ 12 mls/hr [id number] EPIDURAL 04/21/19 17:30 04/24/19 01:44 12 MLS/HR Heparin Sodium (Porcine) (Heparin) 5,000 units Q12H SC 04/21/19 21:00 04/23/19 20:40 5,000 UNITS Hydromorphone HCl (Dilaudid) 0.5 mg Q15M PRN IV MODERATE PAIN (PS 5-7) 04/21/19 13:30 04/21/19 14:14 0.5 MG Ketorolac Tromethamine (ToRADol) 30 mg Q6H IV 04/21/19 18:00 04/26/19 17:59 04/24/19 00:26 30 MG Levalbuterol HCl (Xopenex Neb) 1.25 mg RQ6H NEB 04/21/19 20:00 04/24/19 01:51 1.25 MG Morphine Sulfate (Morphine Sulfate Inj) 2 mg Q15M PRN IV PAIN 04/21/19 13:00 04/21/19 13:24 2 MG Pantoprazole Sodium (Protonix) 40 mg DAILY PO 04/22/19 09:00 04/23/19 08:39 40 MG Sodium Chloride (Nacl 0.9% Solution For Inhalation) 3 ml RQ6H INH 04/23/19 20:00 04/23/19 20:19 3 ML Sodium Chloride (Saline Lock Flush) 2 ml SLF IV 04/22/19 22:00 04/23/19 20:41 2 ML Assessment Pt s/p fall sustained multiple fractures on epidural pain control by anesthesia. Hemodynamically stable , O2 sat >90. Will cont to monitor closely. Cont current meds. Anesthesia and thoracic surgery on board. Encourage incentive spirometry. Encourage ambulation. PT/OT SW VS,Fishbone, I+O VS, Fishbone, I+O Laboratory Tests 04/23/19 05:08 Red Blood Count 4.12 L, Mean Corpuscular Volume 99.3 H, Mean Corpuscular Hemoglobin 32.8, Mean Corpuscular Hemoglobin Concent 33.0, Red Cell Distribution Width 12.9, Neutrophils (%) (Auto) 73.1 H, Lymphocytes (%) (Auto) 15.4 L, Monocytes (%) (Auto) 10.2 H, Eosinophils (%) (Auto) 0.9, Basophils (%) (Auto) 0.2, Neutrophils # (Auto) 5.9, Lymphocytes # (Auto) 1.3 L, Monocytes # (Auto) 0.8, Eosinophils # (Auto) 0.1, Basophils # (Auto) 0.0, Calcium Level 8.2 L Vital Signs Date Time Temp Pulse Resp B/P (MAP) Pulse Ox O2 Delivery O2 Flow Rate FiO2 04/24/19 04:00 97.9 86 20 131/86 (101) 95 2.0 04/24/19 01:51 Nasal Cannula I&O- Last 24 Hours up to 6 AM 04/24/19 06:00 Intake Total 1680 ml Output Total 925 ml Balance 755 ml OBED MCDUFFIE MD Apr 24, 2019 04:31
[2019-04-24 05:40] LABS: BASO % 0.4 % (0.0-1.0); EOS # 0.1 10^3/uL (0.0-0.50); EOS % 1.3 % (0.0-3.0); HEMATOCRIT 39.6 % (42.0-52.0); HEMOGLOBIN 12.9 g/dl (13.5-17.5); LYMPH # 1.3 10^3/uL (1.5-4.5); LYMPH % 17.2 % (24.0-44.0); MEAN CORPUSCULAR HEMOGLOBIN 31.5 pg (27.0-33.0); MEAN CORPUSCULAR HGB CONC 32.6 g/dl (32.0-36.5); MEAN CORPUSCULAR VOLUME 96.8 fl (80.0-96.0); MONO # 0.7 10^3/uL (0.0-0.8); MONO % 9.2 % (0.0-5.0); NEUTROPHILS # 5.4 10^3/uL (1.8-7.7); NEUTROPHILS % 71.5 % (36.0-66.0); PLATELET COUNT, AUTOMATED 176 10^3/uL (150-450); RED BLOOD COUNT 4.09 10^6/uL (4.30-6.10); WHITE BLOOD COUNT 7.6 10^3/uL (4.0-10.0)
[2019-04-24 05:58] LABS: BLOOD UREA NITROGEN 8 MG/DL (7-18); CALCIUM LEVEL 8.3 MG/DL (8.5-10.1); CARBON DIOXIDE LEVEL 30 MEQ/L (21-32); CHLORIDE LEVEL 104 MEQ/L (98-107); CREATININE FOR GFR 0.64 MG/DL (0.70-1.30); GLOMERULAR FILTRATION RATE > 60.0 (>56); GLUCOSE, FASTING 113 MG/DL (70-100); POTASSIUM SERUM 4.4 MEQ/L (3.5-5.1); SODIUM LEVEL 138 MEQ/L (136-145)
[2019-04-24] MEDS: SLF 3 ML SYR IV SCH ×3 (06:00→22:00)
--- NOTE | 2019-04-24 06:27 | REP ---
Clinical: Possible hemothorax. Technique: Axial noncontrast images from the thoracic inlet to the upper abdomen with coronal and sagittal re-formations. Comparison: 04/21/2019. Findings: There is a small right pleural effusion along with bilateral lower lobe consolidations (right greater than left). Underlying chronic moderate emphysematous changes noted bilaterally. No pneumothorax. Right second through ninth and eleventh rib fractures and nondisplaced right acromion fracture again noted. Mediastinum demonstrates a few small reactive lymph nodes without significant adenopathy. Thoracic aorta, pulmonary vasculature and heart/pericardium appear normal. Moderate paraesophageal gastric hiatal hernia noted. Impression: 1. Small to moderate right pleural effusion and bilateral lower lobe consolidations. No hemopneumothorax. 2. Stable appearance to the right rib fractures and right acromion fracture. Electronically Signed by Rodriguez Vasquez MD 04/24/2019 06:18 A
[2019-04-24] MEDS: PANTOPRAZOLE 40MG TAB (PROTONIX) PO SCH (08:38)
[2019-04-24] MEDS: HEPARIN SOD (PORCINE) 5000 UNITS/ML VIAL SC SCH ×2 (08:38→20:15)
[2019-04-24] MEDS: MOM 30ML SUSPENSION UDC PO SCH (08:39)
[2019-04-24] MEDS: DOCUSATE SODIUM 100 MG CAP PO SCH ×2 (08:39→20:15)
--- NOTE | 2019-04-24 11:34 | REP ---
Chest two views HISTORY: Hemothorax Comparison: 04/23/2019 Patchy density is present in the lower lobes consistent with bibasilar atelectasis slightly decreased on the right and unchanged on the left. Small bilateral pleural effusions are present unchanged on the right and decreased on the left. The heart is normal in size. The pulmonary vasculature is normal in appearance. There are multiple right rib fractures. IMPRESSION: 1. Bibasilar atelectasis decreased on the right and unchanged on the left. 2. Small bilateral pleural effusions unchanged on the right and decreased on the left. Electronically Signed by Adriano Dan MD 04/24/2019 11:25 A
--- NOTE | 2019-04-24 23:23 | IPNPDOC ---
Text Note Date of Service The patient was seen on 04/24/19. NOTE Pt was seen and examined at bedside. Denies any acute complaints. Pain is well controlled. Will discuss with anesthesiology regarding plan to transition analgesia to PO verus IV route. Objective: General: Reports: Normal Appetite; Denies: Chills, Night Sweats, Fatigue, Malaise Constitutional: Denies: Chills, Fever, Night Sweats Eyes: Denies: Pain, Vision change ENT: Denies: Head Aches, Ear Pain, Dysphagia Skin: Denies: Rash, Lesions, Breakdown Pulmonary: Denies: Dyspnea, Cough Cardiovascular: Denies: Chest Pain, Palpitations, Orthopnea, Paroxysmal Noc. Dyspnea, Lt Headedness Gastrointestinal: Denies: Nausea, Vomiting, Abdominal Pain, Diarrhea, Constipation Musculoskeletal: Denies: Neck Pain, Back Pain, Joint Pain, Muscle Pain, Spasms Physical Examination General Exam: Positive: Alert, Cooperative, Moderate Distress (2/2 rib fractures, pain) ENT Exam: Positive: Mucous membr. moist/pink, Other ENT (edentulous) Neck Exam: Negative: JVD Chest Exam: Positive: Diminished Heart Exam: Positive: Rate Normal, Normal S1, Normal S2 Abdomen Exam: Positive: Soft; Negative: Tenderness Extremity Exam: Negative: Tenderness, Swelling Psych Exam: Positive: Oriented x 3 Vital Signs Date Time Temp Pulse Resp B/P (MAP) Pulse Ox O2 Delivery O2 Flow Rate FiO2 04/25/19 00:00 2.0 04/25/19 00:00 94 Nasal Cannula 04/24/19 23:59 97.8 90 20 138/84 (102) 95 2.0 04/24/19 23:00 93 Nasal Cannula 04/24/19 22:00 93 Nasal Cannula 04/24/19 21:00 90 Nasal Cannula 04/24/19 20:00 2.0 04/24/19 20:00 97.4 96 18 154/75 (101) 94 2.0 04/24/19 20:00 93 Nasal Cannula 2.0 04/24/19 18:00 93 Nasal Cannula 2.0 04/24/19 17:00 91 Nasal Cannula 2.0 04/24/19 16:00 93 Nasal Cannula 2.0 04/24/19 16:00 2.0 04/24/19 16:00 98.8 92 20 154/86 (108) 92 2.0 04/24/19 15:00 87 Nasal Cannula 2.0 04/24/19 14:00 93 Nasal Cannula 2.0 04/24/19 13:00 90 Nasal Cannula 2.0 04/24/19 12:00 93 Nasal Cannula 2.0 04/24/19 12:00 2.0 04/24/19 12:00 97.8 95 20 124/74 (91) 94 2.0 04/24/19 11:00 91 Nasal Cannula 2.0 04/24/19 10:00 92 Nasal Cannula 2.0 04/24/19 09:00 91 Nasal Cannula 2.0 04/24/19 08:00 90 Nasal Cannula 2.0 04/24/19 08:00 2.0 04/24/19 08:00 98.8 92 20 118/68 (85) 92 2.0 04/24/19 07:00 92 Nasal Cannula 2.0 04/24/19 04:00 97.9 86 20 131/86 (101) 95 2.0 04/24/19 04:00 2.0 04/24/19 04:00 94 Nasal Cannula 2.0 04/24/19 03:00 94 Nasal Cannula 2.0 Intake & Output 04/25/19 06:00 Intake Total 480 ml Output Total 650 ml Balance -170 ml Laboratory Tests 04/24/19 05:05: White Blood Count 7.6, Red Blood Count 4.09L, Hemoglobin 12.9L, Hematocrit 39.6L, Mean Corpuscular Volume 96.8H, Mean Corpuscular Hemoglobin 31.5, Mean Corpuscular Hemoglobin Concent 32.6, Red Cell Distribution Width 12.8, Platelet Count 176, Neutrophils (%) (Auto) 71.5H, Lymphocytes (%) (Auto) 17.2L, Monocytes (%) (Auto) 9.2H, Eosinophils (%) (Auto) 1.3, Basophils (%) (Auto) 0.4, Neutr ophils # (Auto) 5.4, Lymphocytes # (Auto) 1.3L, Monocytes # (Auto) 0.7, Eosinophils # (Auto) 0.1, Basophils # (Auto) 0.0, Immature Granulocyte % (Auto) 0.4, Nucleated Red Blood Cells % (auto) 0.0, Blood Urea Nitrogen 8, Creatinine 0.64L, Sodium Level 138, Potassium Level 4.4, Chloride Level 104, Carbon Dioxide Level 30, Calcium Level 8.3L, Anion Gap 4L, Glomerular Filtration Rate > 60.0, Fasting Glucose 113H Current Medications Medications (Trade) Dose Ordered Sig/Willem Route PRN Reason Start Time Stop Time Status Last Admin Dose Admin Benzonatate (Tessalon Perles) 100 mg TIDP PRN PO COUGH 04/23/19 01:45 04/23/19 01:48 100 MG Docusate Sodium (Colace) 100 mg BID PO 04/21/19 21:00 04/24/19 20:15 100 MG Fentanyl/ Bupivacaine HCl 250 ml @ 12 mls/hr [id number] EPIDURAL 04/21/19 17:30 04/24/19 19:14 12 MLS/HR Heparin Sodium (Porcine) (Heparin) 5,000 units Q12H SC 04/21/19 21:00 04/24/19 20:15 5,000 UNITS Hydromorphone HCl (Dilaudid) 0.5 mg Q15M PRN IV MODERATE PAIN (PS 5-7) 04/21/19 13:30 04/21/19 14:14 0.5 MG Ketorolac Tromethamine (ToRADol) 30 mg Q6H IV 04/21/19 18:00 04/26/19 17:59 04/24/19 23:20 30 MG Levalbuterol HCl (Xopenex Neb) 1.25 mg RQ6H NEB 04/21/19 20:00 04/25/19 01:40 1.25 MG Magnesium Hydroxide (Milk Of Magnesia) 30 ml DAILY PO 04/22/19 09:00 04/24/19 08:39 30 ML Morphine Sulfate (Morphine Sulfate Inj) 2 mg Q15M PRN IV PAIN 04/21/19 13:00 04/21/19 13:24 2 MG Pantoprazole Sodium (Protonix) 40 mg DAILY PO 04/22/19 09:00 04/24/19 08:38 40 MG Sodium Chloride (Nacl 0.9% Solution For Inhalation) 3 ml RQ6H INH 04/23/19 20:00 04/24/19 20:07 3 ML Sodium Chloride (Saline Lock Flush) 2 ml SLF IV 04/22/19 22:00 04/24/19 22:00 2 ML Assessment Pt s/p fall sustained multiple fractures on epidural pain control by anesthesia. Hemodynamically stable , O2 sat >90. Will cont to monitor closely. Cont current meds. Anesthesia and thoracic surgery on board. Encourage incentive spirometry. Encourage ambulation. Plan to transition to PO pain management Encourage ambulation. PT/OT SW VS,Fishbone, I+O VS, Fishbone, I+O Laboratory Tests 04/24/19 05:05 Red Blood Count 4.09 L, Mean Corpuscular Volume 96.8 H, Mean Corpuscular Hemoglobin 31.5, Mean Corpuscular Hemoglobin Concent 32.6, Red Cell Distribution Width 12.8, Neutrophils (%) (Auto) 71.5 H, Lymphocytes (%) (Auto) 17.2 L, Monocytes (%) (Auto) 9.2 H, Eosinophils (%) (Auto) 1.3, Basophils (%) (Auto) 0.4, Neutrophils # (Auto) 5.4, Lymphocytes # (Auto) 1.3 L, Monocytes # (Auto) 0.7, Eosinophils # (Auto) 0.1, Basophils # (Auto) 0.0, Calcium Level 8.3 L Vital Signs Date Time Temp Pulse Resp B/P (MAP) Pulse Ox O2 Delivery O2 Flow Rate FiO2 04/24/19 20:00 2.0 04/24/19 20:00 97.4 96 18 154/75 (101) 94 04/24/19 20:00 Nasal Cannula I&O- Last 24 Hours up to 6 AM 04/24/19 06:00 Intake Total 2280 ml Output Total 1525 ml Balance 755 ml OBED MCDUFFIE MD Apr 24, 2019 23:23
[2019-04-25] VITALS (20 sets, daily range): BP systolic 117–152; BP diastolic 64–85; O2SAT 90–99
[2019-04-25] MEDS: LEVALBUTEROL 1.25 MG/0.5 ML CONCENTRATE NEB NEB SCH ×4 (01:40→19:56)
[2019-04-25] MEDS: SODIUM CHLORIDE 0.9% 3ML NEB SOLUTION FOR INHALATION INH SCH ×2 (02:00→08:00)
[2019-04-25] MEDS: KETOROLAC 30 MG/ML VIAL (J1885) IV SCH ×4 (05:19→23:36)
[2019-04-25] MEDS: SLF 3 ML SYR IV SCH ×3 (05:27→22:23)
[2019-04-25 05:47] LABS: BASO % 0.5 % (0.0-1.0); EOS # 0.2 10^3/uL (0.0-0.50); HEMATOCRIT 42.1 % (42.0-52.0); HEMOGLOBIN 13.8 g/dl (13.5-17.5); LYMPH # 1.3 10^3/uL (1.5-4.5); MEAN CORPUSCULAR HEMOGLOBIN 31.7 pg (27.0-33.0); MEAN CORPUSCULAR HGB CONC 32.8 g/dl (32.0-36.5); MEAN CORPUSCULAR VOLUME 96.6 fl (80.0-96.0); MONO # 0.8 10^3/uL (0.0-0.8); MONO % 10.4 % (0.0-5.0); NEUTROPHILS # 5.1 10^3/uL (1.8-7.7); NEUTROPHILS % 68.8 % (36.0-66.0); PLATELET COUNT, AUTOMATED 195 10^3/uL (150-450); RED BLOOD COUNT 4.36 10^6/uL (4.30-6.10); WHITE BLOOD COUNT 7.4 10^3/uL (4.0-10.0)
[2019-04-25 06:09] LABS: BLOOD UREA NITROGEN 11 MG/DL (7-18); CALCIUM LEVEL 8.1 MG/DL (8.5-10.1); CARBON DIOXIDE LEVEL 31 MEQ/L (21-32); CHLORIDE LEVEL 105 MEQ/L (98-107); CREATININE FOR GFR 0.62 MG/DL (0.70-1.30); GLOMERULAR FILTRATION RATE > 60.0 (>56); GLUCOSE, FASTING 110 MG/DL (70-100); POTASSIUM SERUM 4.4 MEQ/L (3.5-5.1); SODIUM LEVEL 140 MEQ/L (136-145)
--- NOTE | 2019-04-25 08:25 | REP ---
Chest two views HISTORY: Hemothorax Comparison: 04/24/2018 Patchy density is present in the lower lobes consistent with bibasilar atelectasis unchanged on the right and slightly decreased on the left. A small right pleural effusion is present unchanged compared to the previous study. The heart is normal in size. The pulmonary vasculature is normal in appearance. There are multiple right rib fractures. IMPRESSION: 1. Bibasilar atelectasis unchanged on the right and decreased on the left. 2. Small right pleural effusion unchanged compared to the previous study. Electronically Signed by Adriano Dan MD 04/25/2019 08:16 A
[2019-04-25] MEDS: HEPARIN SOD (PORCINE) 5000 UNITS/ML VIAL SC SCH ×2 (09:13→20:08)
[2019-04-25] MEDS: PANTOPRAZOLE 40MG TAB (PROTONIX) PO SCH (09:13)
[2019-04-25] MEDS: DOCUSATE SODIUM 100 MG CAP PO SCH ×2 (09:13→20:08)
[2019-04-25] MEDS: MOM 30ML SUSPENSION UDC PO SCH (09:13)
--- NOTE | 2019-04-25 11:34 | IPN ---
DATE: 04/24/2019 Mr. Bland is feeling better today. His pain is now better controlled with the epidural. He is able to use his incentive spirometer and he can cough with production of sputum. His vital signs show a T-max of 98.8, with a heart rate that ranges between 92 and 96 in a sinus rhythm, respiratory rate of 18 to 20 without the use of accessory muscles who is 91 to 87% saturated on 2 liters nasal cannula. Blood pressure is ranging between 154/86 to 146/67. His intake and output over the past 24 hours has been recorded as 1650 in and 1450 out for a positivity of 230 mL. He weighs 107.6 kg today compared to 105.6 kg yesterday. On physical examination he has inspiratory rales at the right lower base. Percussion note is full to the diaphragm. Left lung shows normal vesicular sounds. Cardiac exam is without murmurs, clicks, gallops or rubs. I cannot feel his point of maximal impulse (PMI). S1 and S2 are normal. Abdomen is firm, distended, but nontender. Bowel sounds are positive, but hypoactive. There is no left costovertebral angle (CVA) tenderness and he has right CVA tenderness referable to his rib fractures. There is no hepatomegaly that I can feel through his obesity. Extremities show trace pretibial edema. No calf tenderness. No differential swelling of the upper extremities. Skin is warm, dry and perfused without cyanosis or mottling including that of the nail beds and the knees. Neck is supple. There is no jugular venous distention. No subcutaneous emphysema. Trachea is midline. Mouth shows his mucous membranes to be pink and moist. Lips and commissures without lesions. No thrush. Eyes show his pupils to be equal, reactive. Extraocular muscles intact. Sclera anicteric. Neuro shows II through XII intact. Gross motor and gross sensation intact. Gait is not tested. Psychiatric shows him to be awake, alert and oriented times three with appropriate mood, affect and conversational. His white count today is 7.6 with a hemoglobin and hematocrit of 12.9 and 39.6 respectively. Platelet count is 176 and stable and differential shows 71% neutrophils, 17% lymphocytes and 9% monocytes. There are no immature forms, no toxic granulations. His chemistry showed normal electrolytes with BUN and creatinine of 8 and 0.64, a glucose of 113 and a calcium of 8.3. His chest x-ray today still shows the haze in the lower right hemithorax. It essentially has not changed. There is blunting of the right costophrenic angle with a meniscus on the lateral film, but unchanged from yesterday. IMPRESSION: 1. Multiple rib fractures right side, status post a 15 foot fall. 2. Small hemothorax. 3. Severe atelectasis of right lower lobe. 4. Tobacco abuse. 5. Obesity. 6. Occasional past history of cocaine and meth abuse. 7. Probable diabetes. PLAN AND DISCUSSION: I started him on normal saline nebs yesterday to get him to cough. He is coughing better and his pain is better controlled. Will get him to continue to ambulate. As noted before, the mainstay of his therapy is going to be pain control and getting him to cough and deep breath. He can get up to 1500 mL on his spirometer.
--- NOTE | 2019-04-25 11:45 | IPN ---
DATE: 04/25/2019 This is now the fourth hospital day for Mr. Bland. His pain is getting better and better. He is able to cough and deep breath. He is on 14 mL by the epidural, however. His vital signs show a maximum temperature (T-max) of 97.4 with a heart rate that ranges between 85 and 92 and in sinus rhythm with a respiratory rate of 18-22 without the use of accessory muscles, who is 92-93% saturated on 2 liters nasal cannula and his blood pressures range between 117/73 to 125/64. His intake and output for the past 24 hours has been recorded as 1080 in and 1250 out for negativity of 170 mL. He weighs 106.5 kg today compared to a 107.6 kg yesterday. On physical examination, his lungs show inspiratory crackles and course rales in the right lower hemithorax. Percussion note is full to the diaphragm as far as I can tell through his obesity. Cardiac exam is without murmurs, clicks, gallops or rubs. I cannot feel his point of maximum impulse (PMI). S1 and S2 are normal. Abdomen is soft for today, nontender. Bowel sounds are positive. There is no hepatomegaly and there is no costovertebral angle (CVA) tenderness on the left but referable to his rib fractures on the right. He still has not had a bowel movement. Extremities show trace pretibial edema with no calf tenderness. No differential swelling of the upper extremities. Skin is warm, dry and perfused without cyanosis or mottling including that of the nail beds and knees. Neck is supple. There is no jugular venous distention. No subcutaneous emphysema. Trachea is midline. Mouth shows his mucous membranes to be pink and moist. Lips and commissures are without lesions. There is no thrush. Eyes show his pupils to be equal and reactive. Extraocular movements intact. Sclerae nonicteric. Neurologic shows II-XII intact along with gross motor and gross sensation intact. Gait is not tested. Psychiatric showed him to be awake, alert and oriented times three with appropriate and affect and conversational. His white count today is 7.4 with a hemoglobin and hematocrit of 13.8 and 42.1 respectively, with a platelet count of 195 and stable. Differential shows 60% neutrophils, 70% lymphocytes, 10% monocytes. There are no immature forms or toxic granulations. His electrolytes are normal with BUN and creatinine of 11.11 and 0.62 with a glucose of 110 and calcium 8.1. He remains on Toradol in addition to the epidural. His chest x-ray today again shows his lung fully expanded to the chest wall. It looks as though the opacity in the right lower lobe is stable. However, the meniscus on the right costophrenic angle looks larger. I am concerned that this may represent increasing pleural effusion. His CT scan on 04/23/2019 showed mostly opacity secondary to non-aeration and atelectasis of the right lower lobar segment. There was a rim of pleural effusion most likely hemothorax. IMPRESSION: 1. Multiple rib fractures, right side, status post a 15-foot fall. 2. Small hemothorax may be getting larger. 3. Severe atelectasis of the right lower lobe. 4. Tobacco abuse. 5. Obesity. 6. Occasional past history of cocaine and meth abuse. 7. Probable diabetes. PLAN AND DISCUSSION: He is already on saline Nebs. I am concerned about the appearance of the chest x-ray and I feel compelled that we need to undertake another CT scan. If the CT scan shows a larger hemothorax, I will have to drain it. Depending upon its actual absolute size, we may be able to get away with a pigtail catheter.
[2019-04-25] MEDS: FENTANYL/BUPIVACAINE/NACL BAG 250 ML EPIDURAL SCH (13:19)
--- NOTE | 2019-04-25 13:46 | REP ---
CT CHEST WITHOUT CONTRAST: HISTORY: Hemothorax. COMPARISON: 04/23/2019 Increased density is present in the lower lobes consistent with bibasilar atelectasis or infiltrates, greater on the right than on the left. Unchanged compared to the previous study. A small right pleural effusion is present unchanged compared to the previous study. The heart is normal in size. Atherosclerotic calcification is present in the thoracic aorta. Small lymph nodes are present in the mediastinum. There are multiple right rib fractures and a fracture of the right acromion. A large hiatal hernia is present. There is no pneumothorax. IMPRESSION: 1. Bibasilar atelectasis or infiltrates greater on the right than on the left unchanged compared to the previous study. 2. Small right pleural effusion unchanged compared to the previous study. There is no pneumothorax. 3. Large hiatal hernia. 4. Multiple right rib fractures and fracture of the right acromion. Electronically Signed by Adriano Dan MD 04/25/2019 01:49 P
--- NOTE | 2019-04-25 14:33 | IPNPDOC ---
Text Note Date of Service The patient was seen on 04/25/19. NOTE Pt was seen and examined at bedside. Denies any acute complaints. Pain is well controlled. Pt was encouraged to use incentive spirometry frequently. Pt is able to cough and clear secretions. New imaging studies as well as thoracic surgery consult appreciated. Will monitor closely. Objective: General: Reports: Normal Appetite; Denies: Chills, Night Sweats, Fatigue, Malaise Constitutional: Denies: Chills, Fever, Night Sweats Eyes: Denies: Pain, Vision change ENT: Denies: Head Aches, Ear Pain, Dysphagia Skin: Denies: Rash, Lesions, Breakdown Pulmonary: Denies: Dyspnea, Cough Cardiovascular: Denies: Chest Pain, Palpitations, Orthopnea, Paroxysmal Noc. Dyspnea, Lt Headedness Gastrointestinal: Denies: Nausea, Vomiting, Abdominal Pain, Diarrhea, Constipation Musculoskeletal: Denies: Neck Pain, Back Pain, Joint Pain, Muscle Pain, Spasms Physical Examination General Exam: Alert, Cooperative, Moderate Distress (2/2 rib fractures, pain) ENT Exam: Mucous membr. moist/pink, Other ENT (edentulous) Neck Exam: Negative: JVD Chest Exam: Diminished breath sound Heart Exam: Positive: Rate Normal, Normal S1, Normal S2 Abdomen Exam: Positive: Soft; Negative: Tenderness Extremity Exam: Negative: Tenderness, Swelling Psych Exam: Positive: Oriented x 3 Vital Signs Date Time Temp Pulse Resp B/P (MAP) Pulse Ox O2 Delivery O2 Flow Rate FiO2 04/25/19 12:35 2.0 04/25/19 12:00 98.0 95 20 138/76 (96) 93 2.0 04/25/19 10:00 93 Nasal Cannula 2.0 04/25/19 09:00 92 Nasal Cannula 2.0 04/25/19 08:00 92 Nasal Cannula 2.0 04/25/19 08:00 96.1 96 22 125/64 (84) 93 2.0 04/25/19 08:00 2.0 04/25/19 07:00 94 Nasal Cannula 2.0 04/25/19 04:00 97.3 85 18 117/73 (88) 95 2.0 04/25/19 04:00 2.0 04/25/19 04:00 93 Nasal Cannula 2.0 04/25/19 03:00 94 Nasal Cannula 2.0 04/25/19 02:00 93 Nasal Cannula 2.0 04/25/19 01:00 93 Nasal Cannula 2.0 04/25/19 00:00 2.0 04/25/19 00:00 94 Nasal Cannula 04/24/19 23:59 97.8 90 20 138/84 (102) 95 2.0 04/24/19 23:00 93 Nasal Cannula 04/24/19 22:00 93 Nasal Cannula 04/24/19 21:00 90 Nasal Cannula 04/24/19 20:00 2.0 04/24/19 20:00 97.4 96 18 154/75 (101) 94 2.0 04/24/19 20:00 93 Nasal Cannula 2.0 04/24/19 18:00 93 Nasal Cannula 2.0 04/24/19 17:00 91 Nasal Cannula 2.0 04/24/19 16:00 93 Nasal Cannula 2.0 04/24/19 16:00 2.0 04/24/19 16:00 98.8 92 20 154/86 (108) 92 2.0 04/24/19 15:00 87 Nasal Cannula 2.0 Intake & Output 04/25/19 06:00 Intake Total 1080 ml Output Total 1800 ml Balance -720 ml Laboratory Tests 04/25/19 05:24: White Blood Count 7.4, Red Blood Count 4.36, Hemoglobin 13.8, Hematocrit 42.1, Mean Corpuscular Volume 96.6H, Mean Corpuscular Hemoglobin 31.7, Mean Corpuscular Hemoglobin Concent 32.8, Red Cell Distribution Width 12.4, Platelet Count 195, Neutrophils (%) (Auto) 68.8H, Lymphocytes (%) (Auto) 17.0L, Monocytes (%) (Auto) 10.4H, Eosinophils (%) (Auto) 3.0, Basophils (%) (Auto) 0.5, Neutr ophils # (Auto) 5.1, Lymphocytes # (Auto) 1.3L, Monocytes # (Auto) 0.8, Eosinophils # (Auto) 0.2, Basophils # (Auto) 0.0, Immature Granulocyte % (Auto) 0.3, Nucleated Red Blood Cells % (auto) 0.0, Blood Urea Nitrogen 11, Creatinine 0.62L, Sodium Level 140, Potassium Level 4.4, Chloride Level 105, Carbon Dioxide Level 31, Calcium Level 8.1L, Anion Gap 4L, Glomerular Filtration Rate > 60.0, Fasting Glucose 110H Current Medications Medications (Trade) Dose Ordered Sig/Willem Route PRN Reason Start Time Stop Time Status Last Admin Dose Admin Benzonatate (Tessalon Perles) 100 mg TIDP PRN PO COUGH 04/23/19 01:45 04/23/19 01:48 100 MG Docusate Sodium (Colace) 100 mg BID PO 04/21/19 21:00 04/25/19 09:13 100 MG Fentanyl/ Bupivacaine HCl 250 ml @ 12 mls/hr [id number] EPIDURAL 04/21/19 17:30 04/25/19 13:19 12 MLS/HR Heparin Sodium (Porcine) (Heparin) 5,000 units Q12H SC 04/21/19 21:00 04/25/19 09:13 5,000 UNITS Ketorolac Tromethamine (ToRADol) 30 mg Q6H IV 04/21/19 18:00 04/26/19 17:59 04/25/19 12:30 30 MG Levalbuterol HCl (Xopenex Neb) 1.25 mg RQ6H NEB 04/21/19 20:00 04/25/19 08:29 1.25 MG Magnesium Hydroxide (Milk Of Magnesia) 30 ml DAILY PO 04/22/19 09:00 04/25/19 09:13 30 ML Pantoprazole Sodium (Protonix) 40 mg DAILY PO 04/22/19 09:00 04/25/19 09:13 40 MG Sodium Chloride (Saline Lock Flush) 2 ml SLF IV 04/22/19 22:00 04/25/19 14:00 2 ML Assessment Pt s/p fall sustained multiple rib fractures on epidural pain control(Fentanyl/ Bupivacaine) by anesthesia. Hemodynamically stable , O2 sat >90. Will cont to monitor closely. Cont current meds. Encourage incentive spirometry. Encourage ambulation. Recent chest CT result noted, pt may require placement of thoracic pigtail catheter to drain possible fluid accumulation. PT/OT SW VS, Fishbone, I+O VS,Fishbone, I+O VS, Fishbone, I+O Laboratory Tests 04/25/19 05:24 Red Blood Count 4.36, Mean Corpuscular Volume 96.6 H, Mean Corpuscular Hemoglobin 31.7, Mean Corpuscular Hemoglobin Concent 32.8, Red Cell Distribution Width 12.4, Neutrophils (%) (Auto) 68.8 H, Lymphocytes (%) (Auto) 17.0 L, Monocytes (%) (Auto) 10.4 H, Eosinophils (%) (Auto) 3.0, Basophils (%) (Auto) 0.5, Neutrophils # (Auto) 5.1, Lymphocytes # (Auto) 1.3 L, Monocytes # (Auto) 0.8, Eosinophils # (Auto) 0.2, Basophils # (Auto) 0.0, Calcium Level 8.1 L Vital Signs Date Time Temp Pulse Resp B/P (MAP) Pulse Ox O2 Delivery O2 Flow Rate FiO2 04/25/19 12:35 2.0 04/25/19 12:00 98.0 95 20 138/76 (96) 93 04/25/19 10:00 Nasal Cannula I&O- Last 24 Hours up to 6 AM 04/25/19 06:00 Intake Total 1080 ml Output Total 1800 ml Balance -720 ml OBED MCDUFFIE MD Apr 25, 2019 14:33
[2019-04-25] MEDS: NICOTINE 21MG/24HR 1 EA TRANSDERMAL TD SCH (15:27)
[2019-04-25] MEDS: SODIUM CHLORIDE HYPERTONIC 3% 15ML NEB SOL INH SCH (16:40)
[2019-04-26] VITALS (19 sets, daily range): BP systolic 122–150; BP diastolic 67–91; O2SAT 91–99
[2019-04-26] MEDS: SODIUM CHLORIDE HYPERTONIC 3% 15ML NEB SOL INH SCH ×3 (01:28→12:47)
[2019-04-26] MEDS: LEVALBUTEROL 1.25 MG/0.5 ML CONCENTRATE NEB NEB SCH ×4 (01:28→19:50)
[2019-04-26] MEDS: FENTANYL/BUPIVACAINE/NACL BAG 250 ML EPIDURAL SCH (05:19)
[2019-04-26] MEDS: SLF 3 ML SYR IV SCH ×3 (05:28→20:07)
[2019-04-26] MEDS: KETOROLAC 30 MG/ML VIAL (J1885) IV SCH ×2 (05:28→11:54)
[2019-04-26 05:44] LABS: BASO # 0.1 10^3/uL (0.0-0.2); BASO % 0.7 % (0.0-1.0); EOS # 0.3 10^3/uL (0.0-0.50); EOS % 3.6 % (0.0-3.0); HEMATOCRIT 39.3 % (42.0-52.0); HEMOGLOBIN 13.1 g/dl (13.5-17.5); LYMPH # 1.4 10^3/uL (1.5-4.5); LYMPH % 18.2 % (24.0-44.0); MEAN CORPUSCULAR HGB CONC 33.3 g/dl (32.0-36.5); MONO # 0.7 10^3/uL (0.0-0.8); NEUTROPHILS # 5.1 10^3/uL (1.8-7.7); NEUTROPHILS % 68.2 % (36.0-66.0); PLATELET COUNT, AUTOMATED 199 10^3/uL (150-450); RED BLOOD COUNT 3.97 10^6/uL (4.30-6.10); WHITE BLOOD COUNT 7.5 10^3/uL (4.0-10.0)
[2019-04-26 06:12] LABS: BLOOD UREA NITROGEN 12 MG/DL (7-18); CALCIUM LEVEL 7.9 MG/DL (8.5-10.1); CARBON DIOXIDE LEVEL 32 MEQ/L (21-32); CHLORIDE LEVEL 104 MEQ/L (98-107); CREATININE FOR GFR 0.59 MG/DL (0.70-1.30); GLOMERULAR FILTRATION RATE > 60.0 (>56); GLUCOSE, FASTING 122 MG/DL (70-100); POTASSIUM SERUM 4.2 MEQ/L (3.5-5.1); SODIUM LEVEL 142 MEQ/L (136-145)
[2019-04-26] MEDS: NICOTINE 21MG/24HR 1 EA TRANSDERMAL TD SCH (08:23)
[2019-04-26] MEDS: DOCUSATE SODIUM 100 MG CAP PO SCH ×2 (08:23→20:04)
[2019-04-26] MEDS: PANTOPRAZOLE 40MG TAB (PROTONIX) PO SCH (08:23)
[2019-04-26] MEDS: MOM 30ML SUSPENSION UDC PO SCH (08:23)
[2019-04-26] MEDS: HEPARIN SOD (PORCINE) 5000 UNITS/ML VIAL SC SCH ×2 (08:23→20:05)
--- NOTE | 2019-04-26 08:24 | REP ---
Chest two views HISTORY: Hemothorax Comparison: 04/25/2019 A parenchymal density is present in the lower lobes consistent with bibasilar atelectasis increased on the right and unchanged on the left. A small right pleural effusion is present that is slightly increased compared to the previous study. The heart is normal in size. The pulmonary vasculature is normal in appearance. There are multiple right rib fractures. IMPRESSION: 1. Bibasilar atelectasis increased on the right and unchanged on the left. 2. Small right pleural effusion increased in size compared to the previous study. Electronically Signed by Adriano Dan MD 04/26/2019 08:16 A
[2019-04-26] MEDS ORDERED: FUROSEMIDE 40 MG/4 ML VIAL (J1940) IV ONE (10:00)
--- NOTE | 2019-04-26 11:33 | IPNPDOC ---
Text Note Date of Service The patient was seen on 04/26/19. NOTE Pt was seen and examined at bedside. Pt is sitting in chair upright position. Encouraged to use incentive spirometry frequently. Denies any chest pain any dyspnea. Pt with good inspiratory effort, pt able to cough and clear secretions. Reports adequate pain control. Objective: General: Reports: Normal Appetite; Denies: Chills, Night Sweats, Fatigue, Malaise Constitutional: Denies: Chills, Fever, Night Sweats Eyes: Denies: Pain, Vision change ENT: Denies: Head Aches, Ear Pain, Dysphagia Skin: Denies: Rash, Lesions, Breakdown Pulmonary: Denies: Dyspnea, Cough Cardiovascular: Denies: Chest Pain, Palpitations, Orthopnea, Paroxysmal Noc. Dyspnea, Lt Headedness Gastrointestinal: Denies: Nausea, Vomiting, Abdominal Pain, Diarrhea, Constipation Musculoskeletal: Denies: Neck Pain, Back Pain, Joint Pain, Muscle Pain, Spasms Physical Examination General Exam: Alert, Cooperative, Moderate Distress (2/2 rib fractures, pain) ENT Exam: Mucous membr. moist/pink, Other ENT (edentulous) Neck Exam: Negative: JVD Chest Exam: Diminished breath sound bilat at bases Heart Exam: Positive: Rate Normal, Normal S1, Normal S2 Abdomen Exam: Positive: Soft; Negative: Tenderness Extremity Exam: Negative: Tenderness, Swelling Vital Signs Date Time Temp Pulse Resp B/P (MAP) Pulse Ox O2 Delivery O2 Flow Rate FiO2 04/26/19 08:00 2.0 04/26/19 08:00 97.5 99 20 122/71 (88) 99 2.0 04/26/19 04:00 93 Nasal Cannula 2.0 04/26/19 04:00 2.0 04/26/19 04:00 98.2 82 18 131/69 (89) 95 2.0 04/26/19 03:00 93 Nasal Cannula 2.0 04/26/19 02:00 94 Nasal Cannula 2.0 04/26/19 01:00 94 Nasal Cannula 2.0 04/26/19 00:00 98.4 96 18 131/67 (88) 90 2.0 04/26/19 00:00 94 04/26/19 00:00 2.0 04/26/19 00:00 94 Nasal Cannula 2.0 04/25/19 23:00 93 Nasal Cannula 2.0 04/25/19 22:00 95 Nasal Cannula 2.0 04/25/19 21:00 93 Nasal Cannula 2.0 04/25/19 20:00 99 Nasal Cannula 2.0 04/25/19 20:00 97.3 94 20 124/77 (93) 93 2.0 04/25/19 20:00 2.0 04/25/19 17:00 95 Nasal Cannula 2.0 04/25/19 16:00 97.2 91 20 152/85 (107) 99 2.0 04/25/19 16:00 95 Nasal Cannula 2.0 04/25/19 15:41 2.0 04/25/19 15:00 96 Nasal Cannula 2.0 04/25/19 14:00 95 Nasal Cannula 2.0 04/25/19 13:00 94 Nasal Cannula 2.0 04/25/19 12:35 2.0 04/25/19 12:00 98.0 95 20 138/76 (96) 93 2.0 04/25/19 12:00 90 Nasal Cannula 2.0 Intake & Output 04/26/19 06:00 Intake Total 1948 ml Output Total 2850 ml Balance -902 ml Laboratory Tests 04/26/19 05:10: White Blood Count 7.5, Red Blood Count 3.97L, Hemoglobin 13.1L, Hematocrit 39.3L, Mean Corpuscular Volume 99.0H, Mean Corpuscular Hemoglobin 33.0, Mean Corpuscular Hemoglobin Concent 33.3, Red Cell Distribution Width 12.5, Platelet Count 199, Neutrophils (%) (Auto) 68.2H, Lymphocytes (%) (Auto) 18.2L, Monocytes (%) (Auto) 9.0H, Eosinophils (%) (Auto) 3.6H, Basophils (%) (Auto) 0.7, Neutr ophils # (Auto) 5.1, Lymphocytes # (Auto) 1.4L, Monocytes # (Auto) 0.7, Eosinophils # (Auto) 0.3, Basophils # (Auto) 0.1, Immature Granulocyte % (Auto) 0.3, Nucleated Red Blood Cells % (auto) 0.0, Blood Urea Nitrogen 12, Creatinine 0.59L, Sodium Level 142, Potassium Level 4.2, Chloride Level 104, Carbon Dioxide Level 32, Calcium Level 7.9L, Anion Gap 6L, Glomerular Filtration Rate > 60.0, Fasting Glucose 122H Current Medications Medications (Trade) Dose Ordered Sig/Willem Route PRN Reason Start Time Stop Time Status Last Admin Dose Admin Benzonatate (Tessalon Perles) 100 mg TIDP PRN PO COUGH 04/23/19 01:45 04/23/19 01:48 100 MG Docusate Sodium (Colace) 100 mg BID PO 04/21/19 21:00 04/26/19 08:23 100 MG Fentanyl/ Bupivacaine HCl 250 ml @ 14 mls/hr [id number] EPIDURAL 04/21/19 17:30 04/26/19 05:19 14 MLS/HR Heparin Sodium (Porcine) (Heparin) 5,000 units Q12H SC 04/21/19 21:00 04/26/19 08:23 5,000 UNITS Ketorolac Tromethamine (ToRADol) 30 mg Q6H IV 04/21/19 18:00 04/26/19 17:59 04/26/19 05:28 30 MG Levalbuterol HCl (Xopenex Neb) 1.25 mg RQ6H NEB 04/21/19 20:00 04/26/19 07:17 1.25 MG Magnesium Hydroxide (Milk Of Magnesia) 30 ml DAILY PO 04/22/19 09:00 04/26/19 08:23 30 ML Nicotine (Nicoderm Cq 21mg) 1 patch DAILY TD 04/25/19 09:00 04/26/19 08:23 1 PATCH Pantoprazole Sodium (Protonix) 40 mg DAILY PO 04/22/19 09:00 04/26/19 08:23 40 MG Sodium Chloride (Saline Lock Flush) 2 ml SLF IV 04/22/19 22:00 04/26/19 05:28 2 ML Sodium Chloride (Sodium Chloride 3% Neb Dian) 3 ml RQ8H INH 04/25/19 16:00 04/26/19 07:17 3 ML Assessment 1-Multiple rib fractures, acromion fracture 2-Epidural pain control (Fentanyl/Bupivacaine) 3-R/O Hemothorax Pt s/p fall sustained multiple rib fractures on epidural pain control(Fentanyl/Bupivacaine) by anesthesia. Hemodynamically stable , O2 sat >90. Will cont to monitor closely. Cont current meds. Encourage incentive spirometry. Encourage ambulation. Serial CXR reviewed, recent chest CT was reviewed which reveals pleural effusion possible hemothorax as per thoracic surgeon. It was discussed with thoracic surgery regarding the plan. Pt is for CT guided placement of pigtail catheter to drain possible hemothorax in AM. Monitor VS per floor protocol CBC, CMP, Coag in AM NPO after midnight PT/OT SW VS,Fishbone, I+O VS, Fishbone, I+O Laboratory Tests 04/26/19 05:10 Red Blood Count 3.97 L, Mean Corpuscular Volume 99.0 H, Mean Corpuscular Hemoglobin 33.0, Mean Corpuscular Hemoglobin Concent 33.3, Red Cell Distribution Width 12.5, Neutrophils (%) (Auto) 68.2 H, Lymphocytes (%) (Auto) 18.2 L, Monocytes (%) (Auto) 9.0 H, Eosinophils (%) (Auto) 3.6 H, Basophils (%) (Auto) 0.7, Neutrophils # (Auto) 5.1, Lymphocytes # (Auto) 1.4 L, Monocytes # (Auto) 0.7, Eosinophils # (Auto) 0.3, Basophils # (Auto) 0.1, Calcium Level 7.9 L Vital Signs Date Time Temp Pulse Resp B/P (MAP) Pulse Ox O2 Delivery O2 Flow Rate FiO2 04/26/19 08:00 2.0 04/26/19 08:00 97.5 99 20 122/71 (88) 99 04/26/19 04:00 Nasal Cannula I&O- Last 24 Hours up to 6 AM 04/26/19 06:00 Intake Total 1948 ml Output Total 2850 ml Balance -902 ml OBED MCDUFFIE MD Apr 26, 2019 11:33
[2019-04-27] VITALS (19 sets, daily range): BP systolic 111–162; BP diastolic 64–89; O2SAT 91–95
[2019-04-27] MEDS: FENTANYL/BUPIVACAINE/NACL BAG 250 ML EPIDURAL SCH (00:47)
[2019-04-27] MEDS: LEVALBUTEROL 1.25 MG/0.5 ML CONCENTRATE NEB NEB SCH ×4 (01:26→20:06)
[2019-04-27 05:09] LABS: BASO % 0.5 % (0.0-1.0); EOS # 0.3 10^3/uL (0.0-0.50); EOS % 3.6 % (0.0-3.0); HEMATOCRIT 42.2 % (42.0-52.0); HEMOGLOBIN 13.8 g/dl (13.5-17.5); LYMPH # 1.1 10^3/uL (1.5-4.5); LYMPH % 13.8 % (24.0-44.0); MEAN CORPUSCULAR HEMOGLOBIN 31.7 pg (27.0-33.0); MEAN CORPUSCULAR HGB CONC 32.7 g/dl (32.0-36.5); MONO # 0.7 10^3/uL (0.0-0.8); NEUTROPHILS # 6.1 10^3/uL (1.8-7.7); NEUTROPHILS % 73.6 % (36.0-66.0); PLATELET COUNT, AUTOMATED 205 10^3/uL (150-450); RED BLOOD COUNT 4.35 10^6/uL (4.30-6.10); WHITE BLOOD COUNT 8.3 10^3/uL (4.0-10.0)
[2019-04-27 05:28] LABS: BLOOD UREA NITROGEN 11 MG/DL (7-18); CALCIUM LEVEL 8.8 MG/DL (8.5-10.1); CARBON DIOXIDE LEVEL 31 MEQ/L (21-32); CHLORIDE LEVEL 100 MEQ/L (98-107); CREATININE FOR GFR 0.73 MG/DL (0.70-1.30); GLOMERULAR FILTRATION RATE > 60.0 (>56); GLUCOSE, FASTING 136 MG/DL (70-100); POTASSIUM SERUM 4.6 MEQ/L (3.5-5.1); SODIUM LEVEL 136 MEQ/L (136-145)
[2019-04-27] MEDS: SLF 3 ML SYR IV SCH ×3 (05:41→20:18)
[2019-04-27] MEDS: SODIUM CHLORIDE HYPERTONIC 3% 15ML NEB SOL INH SCH ×3 (07:18→15:19)
[2019-04-27 07:50] LABS: LDH LACTATE DEHYDROGENASE 246 U/L (87-241)
[2019-04-27] MEDS: HEPARIN SOD (PORCINE) 5000 UNITS/ML VIAL SC SCH ×2 (08:15→20:17)
[2019-04-27] MEDS ORDERED: diphenhydrAMINE INJ 50MG/ML VIAL (J1200) IV PRN (08:30)
[2019-04-27] MEDS ORDERED: EPIDURAL/PCA KEYS XX PRN (08:30)
[2019-04-27] MEDS ORDERED: NALBUPHINE HCL 10 MG/ML AMP (J2300) IV PRN (08:30)
[2019-04-27] MEDS ORDERED: ONDANSETRON 4MG/2ML VIAL (J2405) IV PRN (08:30)
[2019-04-27] MEDS ORDERED: NALOXONE INJ 0.4 MG/1 ML VIAL (J2310) IV PRN (08:30)
[2019-04-27] MEDS: MOM 30ML SUSPENSION UDC PO SCH (08:42)
[2019-04-27] MEDS: DOCUSATE SODIUM 100 MG CAP PO SCH ×2 (08:42→20:18)
[2019-04-27] MEDS: KETOROLAC 30 MG/ML VIAL (J1885) IV SCH ×3 (08:42→20:18)
[2019-04-27] MEDS: NICOTINE 21MG/24HR 1 EA TRANSDERMAL TD SCH (08:42)
[2019-04-27] MEDS: PANTOPRAZOLE 40MG TAB (PROTONIX) PO SCH (08:43)
--- NOTE | 2019-04-27 09:41 | REP ---
Chest x-ray: Two views. History: Fractured ribs. Hemothorax. Comparison study: April 26, 2019. Findings: There is pleural thickening along the right base laterally and pleural opacity is seen diffusely in the right base unchanged. EKG electrodes are again seen. There is evidence of an epidural catheter approaching the thoracic spine. Heart is not enlarged. No new infiltrate is seen. There are multiple right-sided rib fractures involving ribs two through at least nine. Electronically Signed by Garrett Grant MD 04/27/2019 03:37 P
--- NOTE | 2019-04-27 09:42 | IPN ---
DATE: 04/26/[address] scan on Mr. Bland yesterday in response to a change in chest x-ray. He indeed has more fluid. I am therefore going to schedule him for a pigtail catheter insertion tomorrow. We will keep the epidural going. His vital signs show a maximum temperature (T-max) of 98.2 with a heart rate that ranges between 91 and 99 in a sinus rhythm, respiratory rate of 18-20 without the use of accessory muscles, who is 94% saturated on 2 liters nasal cannula and his blood pressures range between 122/71 to 131/67. His intake and output for the past 24 hours has been recorded as 2067 in and 2400 out for a negativity of 300 mL. He weighs 107.3 kg today compared to 106.5 kg yesterday. PHYSICAL EXAMINATION: LUNGS: He has decreased breath sounds in the right lower hemithorax with a dull percussion note in the right lower hemithorax. The left lung shows normal vesicular sounds. I also hear rhonchi and rales with transmitted breath sounds in the right lower hemithorax and the mid right hemithorax. CARDIAC EXAM: Without murmurs, clicks, gallops or rubs. I cannot feel his point of maximum impulse (PMI). S1, S2 are normal. ABDOMEN: Soft, nontender. Bowel sounds positive. There is no hepatomegaly. No costovertebral angle tenderness. He is still tympanitic and slightly distended. He did have a bowel movement yesterday. EXTREMITIES: Show trace pretibial edema. No calf tenderness. No differential swelling of the upper extremities. SKIN: Warm, dry and perfused without cyanosis or mottling, including that of the nail beds and knees. NECK: Supple. There is no jugular venous distention. No subcutaneous emphysema. Trachea is midline. MOUTH: Shows his mucous membranes to be pink and moist. Lips and commissures without lesions. There is no thrush. EYES: Show his pupils to be equal and reactive. Extraocular motion intact. Sclerae anicteric. NEUROLOGIC: Shows II through XII intact with gross motor and gross sensation intact. Gait is not tested. PSYCHIATRIC: Shows him to be awake and alert, oriented times three with appropriate mood and affect and conversational. His white count today is 7.5 with a hemoglobin and hematocrit of 13.1 and 39.3 with a platelet count of 199. Hemoglobin and hematocrit are slightly decreased from yesterdays of 13.8 and 42.1. Differential shows 68% neutrophils, 18% lymphocytes, 9% monocytes. There are no immature forms or toxic granulations. His electrolytes are normal with a BUN and creatinine of 12 and 0.59 with a glucose of 122 and calcium 7.9. He remains on Toradol. His chest x-ray today again shows an increase in the fluid on the right side with an increasing pleural effusion on the lateral film posteriorly. He has the overlying atelectasis additionally. IMPRESSION: 1. Hospital day number 5 with multiple rib fractures. 2. Hemothorax, getting larger. 3. Severe atelectasis of the right lower lobe. 4. Tobacco abuse. 5. Obesity. 6. Occasional past history of cocaine and meth abuse. 7. Probable diabetes. PLAN AND DISCUSSION: As noted above, I will have him drained with a pigtail catheter tomorrow. We will continue the epidural today. I will gently diurese him today.
--- NOTE | 2019-04-27 10:42 | IPN ---
DATE: 04/27/2019 Mr. Cobos Toradol was discontinued yesterday afternoon. It had fall off the Medication Administration Record (MAR) and I was not notified and therefore he is increased pain today. It is well known that I continue my patient's on Toradol and check the BUN and creatinine everyday to make sure that the non-steroidal anti-inflammatory drug (NSAID) is not affecting the renal function and they are always placed on proton pump inhibitors to obviate gastritis. Nonetheless, it was discontinued and I have now restarted it as soon as possible ([place]). His vital signs show a maximum temperature (T-max) of 98.4 with a heart rate that ranges between 82 and 84 in a sinus rhythm, respiratory rate of 18-22 without the use of accessory muscles, who is 90-92% saturated on 2 liters nasal cannula and his blood pressures range between 162/86 to 143/62. His intake and output for the past 24 hours has been recorded as 2088 in and 4850 out for a negativity of 2700 mL. He weighs 107.8 kg today compared to 107.3 kg yesterday. PHYSICAL EXAMINATION: LUNGS: Show some crackles during inspiration in the right lower hemithorax. Percussion is full to the diaphragm. Left lung has normal vesicular sounds. CARDIAC EXAM: Without murmurs, clicks, gallops or rubs. I cannot feel his point of maximum impulse (PMI). S1, S2 are normal. ABDOMEN: Soft, nontender. Bowel sounds positive. There is no hepatomegaly. No costovertebral angle tenderness. EXTREMITIES: Show no pretibial edema. No calf tenderness. No differential swelling in the upper extremities. SKIN: Warm, dry and perfused without cyanosis or mottling, including that of the nail beds and knees. NECK: Supple. There is no jugular venous distention. No subcutaneous emphysema. Trachea is midline. MOUTH: Shows his mucous membranes to be pink and moist. Lips and commissures without lesions. There is no thrush. EYES: Show his pupils to be equal and reactive. Extraocular motion intact. Sclerae anicteric. NEUROLOGIC: Shows II through XII intact with gross motor and gross sensation intact. Gait is not tested. PSYCHIATRIC: Shows him to be awake and alert, oriented times three with appropriate mood and affect and conversational. His white count today is 8.3 with a hemoglobin and hematocrit of 13.8 and 42.2 with a platelet count of 205. Differential shows 73% neutrophils, 13% lymphocytes, 8% monocytes. There are no immature forms or toxic granulations. Chemistries show normal electrolytes with a BUN and creatinine of 11 and 0.73 with a glucose of 136 and calcium of 8.8. His chest x-ray shows the pleural effusion getting larger on the lateral film. There is a diffuse opacity in the right lower lobe consistent with both effusion and his atelectasis. This epidural is going at 14 mL a hour and it does not seem to be helping him at all. Without the Toradol his pain control is problematic. IMPRESSION: 1. Hospital day #6 with multiple rib fractures. 2. Hemothorax, increasing. 3. Severe atelectasis of the right lower lobe. 4. Tobacco abuse. 5. Obesity. 6. Occasional past history of cocaine and meth abuse. 7. Probable diabetes. 8. Problematic pain control. PLAN AND DISCUSSION: As noted above, we will restart the Toradol. I am going to wean his epidural and start him on a standard patient-controlled analgesia (FOOD MANAGEMENT AIDE) pump of morphine. He is to be going down to x-ray today for a pigtail catheter insertion to drain his hemothorax.
[2019-04-27] MEDS ORDERED: LIDOCAINE 1% MDV 20ML VIAL As Ordered ONE (14:52)
--- NOTE | 2019-04-27 15:44 | IPNPDOC ---
Text Note Date of Service The patient was seen on 04/27/19. NOTE Pt was seen and examined at bedside. Today he complains of increased pain in thoracic wall area especially when he changes position and on deep inspiration. NPO for placement of pigtail catheter. Denies any dyspnea or orthopnea. Physical Examination General Exam: Alert, Cooperative, Moderate Distress (2/2 rib fractures, pain) ENT Exam: Mucous membr. moist/pink, Other ENT (edentulous) Neck Exam: Negative: JVD Chest Exam: Diminished breath sound bilat at bases Heart Exam: Positive: Rate Normal, Normal S1, Normal S2 Abdomen Exam: Positive: Soft; Negative: Tenderness Extremity Exam: Negative: Tenderness, Swelling Vital Signs Date Time Temp Pulse Resp B/P (MAP) Pulse Ox O2 Delivery O2 Flow Rate FiO2 04/27/19 13:05 2.0 04/27/19 13:00 95 Nasal Cannula 2.0 04/27/19 12:00 95 Nasal Cannula 2.0 04/27/19 12:00 97.4 86 20 117/68 (84) 94 2.0 04/27/19 11:00 95 Nasal Cannula 2.0 04/27/19 10:00 93 Nasal Cannula 2.0 04/27/19 09:00 93 Nasal Cannula 2.0 04/27/19 08:30 2.0 04/27/19 08:00 92 Nasal Cannula 2.0 04/27/19 08:00 97.5 82 22 152/89 (110) 90 2.0 04/27/19 07:00 93 Nasal Cannula 2.0 04/27/19 04:00 97.0 81 18 162/86 (111) 92 2.0 04/27/19 04:00 2.0 04/27/19 00:00 93 Nasal Cannula 2.0 04/27/19 00:00 2.0 04/26/19 23:59 98.4 84 18 143/72 (95) 95 2.0 04/26/19 20:00 98.7 89 16 150/74 (99) 94 2.0 04/26/19 20:00 2.0 04/26/19 19:51 Nasal Cannula 2.0 04/26/19 18:00 94 Nasal Cannula 2.0 04/26/19 17:00 94 Nasal Cannula 2.0 04/26/19 16:00 93 Nasal Cannula 2.0 04/26/19 16:00 97.1 107 20 130/91 (104) 94 2.0 04/26/19 16:00 2.0 Intake & Output 04/27/19 06:00 Intake Total 1608 ml Output Total 4100 ml Balance -2492 ml Laboratory Tests 04/27/19 04:33: White Blood Count 8.3, Red Blood Count 4.35, Hemoglobin 13.8, Hematocrit 42.2, Mean Corpuscular Volume 97.0H, Mean Corpuscular Hemoglobin 31.7, Mean Corpuscular Hemoglobin Concent 32.7, Red Cell Distribution Width 12.5, Platelet Count 205, Neutrophils (%) (Auto) 73.6H, Lymphocytes (%) (Auto) 13.8L, Monocytes (%) (Auto) 8.0H, Eosinophils (%) (Auto) 3.6H, Basophils (%) (Auto) 0.5, Neutrophils # (Auto) 6.1, Lymphocytes # (Auto) 1.1L, Monocytes # (Auto) 0.7, Eosinophils # (Auto) 0.3, Basophils # (Auto) 0.0, Immature Granulocyte % (Auto) 0.5, Nucleated Red Blood Cells % (auto) 0.0, Blood Urea Nitrogen 11, Creatinine 0.73, Sodium Level 136, Potassium Level 4.6, Chloride Level 100, Carbon Dioxide Level 31, Calcium Level 8.8, Anion Gap 5L, Glomerular Filtration Rate > 60.0, Fasting Glucose 136H, Lactate Dehydrogenase 246H 04/27/19 15:02: Body Fluid pH [Pending], Body Fluid pH Source [Pending], Body Fluid WBC (Auto) [Pending], Body Fluid RBC (Auto) [Pending], Body Fluid Glucose Source [Pending], Body Fluid Glucose [Pending], Body Fluid Protein Source [Pending], Body Fluid Total Protein [Pending], Body Fluid Albumin Source [Pending], Body Fluid Albumin [Pending], Body Fluid LDH Source [Pending], Body Fluid Lactate Dehydrogenase [Pending], Body Fluid Amylase Source [Pending], Body Fluid Amylase [Pending], Body Fluid Cholesterol [Pending], Body Fluid Cholesterol Source [Pending], Body Fluid Triglyceride Source [Pending], Body Fluid Triglycerides [Pending], Pleural Fluid Source [Pending], Pleural Fluid Color [Pending], Pleural Fluid Appearance [Pending] Current Medications Medications (Trade) Dose Ordered Sig/Willem Route PRN Reason Start Time Stop Time Status Last Admin Dose Admin Benzonatate (Tessalon Perles) 100 mg TIDP PRN PO COUGH 04/23/19 01:45 04/23/19 01:48 100 MG Docusate Sodium (Colace) 100 mg BID PO 04/21/19 21:00 04/27/19 08:42 100 MG Fentanyl/ Bupivacaine HCl 250 ml @ 14 mls/hr [id number] EPIDURAL 04/21/19 17:30 04/27/19 00:47 14 MLS/HR Heparin Sodium (Porcine) (Heparin) 5,000 units Q12H SC 04/21/19 21:00 04/26/19 20:05 5,000 UNITS Ketorolac Tromethamine (ToRADol) 30 mg Q6H IV 04/27/19 09:00 05/02/19 08:59 04/27/19 08:42 30 MG Levalbuterol HCl (Xopenex Neb) 1.25 mg RQ6H NEB 04/21/19 20:00 04/27/19 07:18 1.25 MG Magnesium Hydroxide (Milk Of Magnesia) 30 ml DAILY PO 04/22/19 09:00 04/27/19 08:42 30 ML Nicotine (Nicoderm Cq 21mg) 1 patch DAILY TD 04/25/19 09:00 04/27/19 08:42 1 PATCH Pantoprazole Sodium (Protonix) 40 mg DAILY PO 04/22/19 09:00 04/27/19 08:43 40 MG Sodium Chloride (Saline Lock Flush) 2 ml SLF IV 04/22/19 22:00 04/27/19 05:41 2 ML Sodium Chloride (Sodium Chloride 3% Neb Dian) 3 ml RQ8H INH 04/25/19 16:00 04/27/19 07:18 3 ML Assessment 1-Multiple rib fractures, acromion fracture 2-Epidural pain control (Fentanyl/Bupivacaine) 3-Pleural Effusion 4-Placement of IR guided pigtail catheter 5-Hx of polysubstance abuse Pt s/p fall sustained multiple rib fractures on epidural pain control(Fentanyl/Bupivacaine) by anesthesia. Hemodynamically stable , O2 sat >90. Will cont to monitor closely. Cont current meds. Encourage incentive spirometry. Encourage ambulation. Optimize pain control Serial CXR reviewed, recent chest CT was reviewed which reveals pleural effusion possible hemothorax. Monitor VS CBC, CMP, Coag in AM Follow post procedure care protocol per thoracic surgery CXR in AM PT/OT SW consult VS,Paula, I+O VS, Fishbone, I+O Laboratory Tests 04/27/19 04:33 Red Blood Count 4.35, Mean Corpuscular Volume 97.0 H, Mean Corpuscular Hemoglobin 31.7, Mean Corpuscular Hemoglobin Concent 32.7, Red Cell Distribution Width 12.5, Neutrophils (%) (Auto) 73.6 H, Lymphocytes (%) (Auto) 13.8 L, Monocytes (%) (Auto) 8.0 H, Eosinophils (%) (Auto) 3.6 H, Basophils (%) (Auto) 0.5, Neutrophils # (Auto) 6.1, Lymphocytes # (Auto) 1.1 L, Monocytes # (Auto) 0.7, Eosinophils # (Auto) 0.3, Basophils # (Auto) 0.0, Calcium Level 8.8 Vital Signs Date Time Temp Pulse Resp B/P (MAP) Pulse Ox O2 Delivery O2 Flow Rate FiO2 04/27/19 13:05 2.0 04/27/19 13:00 95 Nasal Cannula 04/27/19 12:00 97.4 86 20 117/68 (84) I&O- Last 24 Hours up to 6 AM 04/27/19 06:00 Intake Total 1608 ml Output Total 4100 ml Balance -2492 ml OBED MCDUFFIE MD Apr 27, 2019 15:44
[2019-04-27 15:50] LABS: PH BODY FLUID 7.579 UNITS (NOT ESTABLISHED); SOURCE, BODY FLUID pH PLEURAL
[2019-04-27 16:12] LABS: AMYLASE, BODY FLUID 6 U/L (NOT ESTABLISHED); CHOLESTEROL, BODY FLUID < 50 MG/DL (NOT ESTABLISHED); LDH, BODY FLUID 394 U/L (NOT ESTABLISHED); SOURCE, BODY FLUID ALBUMIN PLEURAL; SOURCE, BODY FLUID AMYLASE PLEURAL; SOURCE, BODY FLUID CHOL PLEURAL; SOURCE, BODY FLUID GLUCOSE PLEURAL; SOURCE, BODY FLUID LDH PLEURAL; SOURCE, BODY FLUID TOT PROTEIN PLEURAL; SOURCE, BODY FLUID TRIG PLEURAL; TOTAL PROTEIN, BODY FLUID 3.2 G/DL (NOT ESTABLISHED); TRIGLYCERIDE, BODY FLUID 40 MG/DL (NOT ESTABLISHED)
[2019-04-27] MEDS ORDERED: ACETAMINOPHEN TAB 650MG DOSE (2X325MG) PO PRN (16:15)
[2019-04-27 16:16] LABS: APPEARANCE, BODY FLUID CLOUDY (CLEAR); PLEURAL FL COLOR RED (COLORLESS); SOURCE, BODY FLUID PLEURAL
[2019-04-27] MEDS: NS 1,000 ML IV SCH (16:44)
[2019-04-27] MEDS: MORPHINE 1MG/ML IN 0.9% NACL 100ML IV BAG IV PRN (16:45)
--- NOTE | 2019-04-27 17:20 | REP ---
Chest x-ray: Two views: History: Status post pigtail catheter placement in the right pleural space. Right hemothorax. Multiple right rib fractures. Comparison is made with chest x-ray done earlier this date. Findings: PA and lateral views demonstrate a posteriorly positioned right pleural drainage catheter in good position. No evidence of pneumothorax. Decreased pleural thickening. Impression: No complication identified. Electronically Signed by Garrett Grant MD 04/27/2019 06:36 P
--- NOTE | 2019-04-27 18:47 | REP ---
Ultrasound-guided catheter placement The procedure was performed by ARTIS Link, under the personal supervision of Dr. Grant. The risks and benefits of the procedure were explained to the patient and informed consent was obtained both verbally and written. Directly prior to the start of the procedure, a formal timeout was completed in the exam room. Pleural fluid in the right lung zone was localized using ultrasound guidance. The skin was prepped and draped in a sterile fashion. 15 of 1% lidocaine was used as a local anesthetic. Using ultrasound guidance, an 10-Indian pig tail catheter was inserted and advanced into the fluid. 625 ml of red tinged colored fluid was withdrawn and sent to the lab for analysis. The catheter was then attached to a Pleur-Evac drainage system. The patient tolerated the procedure well and there were no immediate complications. After the appropriate amount of monitored convalescence, the patient was discharged from the department. Reviewed by ARTIS Brunner 04/27/2019 05:34 P Electronically Signed by Garrett Grant MD 04/27/2019 06:38 P
[2019-04-28] VITALS (20 sets, daily range): BP systolic 113–131; BP diastolic 67–83; O2SAT 88–99
[2019-04-28] MEDS: SODIUM CHLORIDE HYPERTONIC 3% 15ML NEB SOL INH SCH ×3 (01:30→14:51)
[2019-04-28] MEDS: LEVALBUTEROL 1.25 MG/0.5 ML CONCENTRATE NEB NEB SCH ×4 (01:31→18:51)
[2019-04-28] MEDS: FENTANYL/BUPIVACAINE/NACL BAG 250 ML EPIDURAL SCH ×2 (01:47→12:28)
[2019-04-28] MEDS: KETOROLAC 30 MG/ML VIAL (J1885) IV SCH ×4 (02:41→20:45)
[2019-04-28] MEDS: SLF 3 ML SYR IV SCH ×3 (05:50→21:28)
[2019-04-28 05:51] LABS: BASO % 0.5 % (0.0-1.0); EOS # 0.3 10^3/uL (0.0-0.50); EOS % 3.1 % (0.0-3.0); HEMATOCRIT 41.1 % (42.0-52.0); HEMOGLOBIN 13.5 g/dl (13.5-17.5); LYMPH # 1.1 10^3/uL (1.5-4.5); LYMPH % 12.6 % (24.0-44.0); MEAN CORPUSCULAR HEMOGLOBIN 32.5 pg (27.0-33.0); MEAN CORPUSCULAR HGB CONC 32.8 g/dl (32.0-36.5); MONO # 0.8 10^3/uL (0.0-0.8); MONO % 9.2 % (0.0-5.0); NEUTROPHILS # 6.5 10^3/uL (1.8-7.7); NEUTROPHILS % 74.3 % (36.0-66.0); PLATELET COUNT, AUTOMATED 223 10^3/uL (150-450); RED BLOOD COUNT 4.15 10^6/uL (4.30-6.10); WHITE BLOOD COUNT 8.7 10^3/uL (4.0-10.0)
[2019-04-28 06:13] LABS: BLOOD UREA NITROGEN 17 MG/DL (7-18); CALCIUM LEVEL 7.9 MG/DL (8.5-10.1); CARBON DIOXIDE LEVEL 32 MEQ/L (21-32); CHLORIDE LEVEL 101 MEQ/L (98-107); CREATININE FOR GFR 0.76 MG/DL (0.70-1.30); GLOMERULAR FILTRATION RATE > 60.0 (>56); GLUCOSE, FASTING 135 MG/DL (70-100); POTASSIUM SERUM 4.5 MEQ/L (3.5-5.1); SODIUM LEVEL 138 MEQ/L (136-145)
--- NOTE | 2019-04-28 09:26 | REP ---
Chest x-ray: Two views. History: Hemothorax. Multiple right-sided rib fractures. Comparison chest x-ray: April 27, 2019. Findings: The right pleural drainage catheter remains in place although its pigtail loop is a partially opened. The right pleural effusion and pleural thickening are somewhat improved from the preplacement film be done yesterday. Unchanged from the 3:30 p.m. post placement film. There is no evidence of pneumothorax. No new infiltrate. Electronically Signed by Garrett Grant MD 04/28/2019 09:46 A
[2019-04-28] MEDS: MOM 30ML SUSPENSION UDC PO SCH (09:42)
[2019-04-28] MEDS: PANTOPRAZOLE 40MG TAB (PROTONIX) PO SCH (09:45)
[2019-04-28] MEDS: DOCUSATE SODIUM 100 MG CAP PO SCH ×2 (09:45→20:44)
[2019-04-28] MEDS: HEPARIN SOD (PORCINE) 5000 UNITS/ML VIAL SC SCH ×2 (09:45→20:45)
[2019-04-28] MEDS: NICOTINE 21MG/24HR 1 EA TRANSDERMAL TD SCH (09:46)
--- NOTE | 2019-04-28 11:50 | IPN ---
DATE: 04/28/2019 This is now the 7th hospital day for Mr. Bland. He went down to x-ray yesterday and a pigtail catheter was inserted and he was drained of 625 mL of bloody fluid. Since then he has put out nearly another 200 mL. His pain is being well controlled now on a OIL EXPELLER OPERATOR pump morphine. His vital signs show a maximum temperature (T-max) of 97.5 with a heart rate that ranges between 78 and 102 in a sinus rhythm, respiratory rate of 16 to 18 without the use of accessory muscles, who is 93 to 95% saturated on 2 liters nasal cannula and his blood pressures range between 120/69 to 111/69. His intake and output for the past 24 hours has been recorded as 480 in and 2190 out for a negativity of 1710 mL. He weighs 105.3 kg today compared to 107.8 kg yesterday. PHYSICAL EXAMINATION: LUNGS: I can now hear breath sounds in the right lower hemithorax with some late inspiratory crackles. Percussion note is full to the diaphragm. CARDIAC EXAM: Without murmurs, clicks, gallops or rubs. I cannot feel his point of maximum impulse (PMI). S1, S2 are normal. ABDOMEN: Soft, nontender. Bowel sounds positive. There is no hepatomegaly. No costovertebral angle tenderness. EXTREMITIES: Show trace pretibial edema. No calf tenderness. No differential swelling of the upper extremities. SKIN: Warm, dry and perfused without cyanosis or mottling, including that of the nail beds and knees. NECK: Supple. There is no jugular venous distention. No subcutaneous emphysema. Trachea is midline. MOUTH: Shows his mucous membranes to be pink and moist. Lips and commissures without lesions. There is no thrush. EYES: Show his pupils to be equal and reactive. Extraocular motion intact. Sclerae anicteric. NEUROLOGIC: Shows II through XII intact with gross motor and gross sensation intact. Gait is not tested. PSYCHIATRIC: Shows him to be awake and alert, oriented times three with appropriate mood and affect and conversational. His white count today is 8.7 with a hemoglobin and hematocrit of 13.4 and 41.1, essentially unchanged from yesterday with a platelet count of 223. Differential shows 74% neutrophils, 12% lymphocytes, 9% monocytes. There are no immature forms or toxic granulations. His electrolytes are normal with a BUN and creatinine of 17 and 0.76 with a glucose of 135 and calcium 7.9. His pleural fluid has been returned with a pH of 7.5 with a glucose of 113 and an LDH of 394 with a corresponding serum LDH of 246. He had 1283 white cells, in which 82% were mononuclear lymphocytes. This looks to be a chronic hemothorax. His chest x-ray today is vastly improved. I can now see the costophrenic angle on the right side clearly. The lateral view shows resolution of the posterior fluid collection and a pigtail catheter has been placed. He still has atelectatic changes on the right. IMPRESSION: 1. Hospital day number 7 with multiple rib fractures on the right side. 2. Hemothorax, resolved with a pigtail catheter. 3. Severe atelectasis of the right lower lobe, improving. 4. Tobacco abuse. 5. Obesity. 6. Occasional past history of cocaine and meth abuse. 7. Probable diabetes. 8. Problematic pain control, improved. PLAN AND DISCUSSION: I will leave the pigtail catheter in another day and then probable discontinue it tomorrow. I will consider discharging him in 2 days. We will have to transition from the OIL EXPELLER OPERATOR to oral pain control.
[2019-04-28] MEDS: NS 1,000 ML IV SCH (12:29)
--- NOTE | 2019-04-28 14:08 | IPNPDOC ---
Subjective Date Seen The patient was seen on 04/28/19. Subjective Chief Complaint/HPI Patient seen and examined at the bedside. Reports that his pain is well controlled at this time. States that his respiratory status is slowly improving, and he has been working with physical therapy. He has had about 800 mL total of serosanguineous drainage since placement of a pigtail catheter yesterday. No acute overnight events noted. Objective Physical Examination General Exam: Positive: Alert, Cooperative, No Acute Distress ENT Exam: Positive: Atraumatic, Mucous membr. moist/pink Neck Exam: Negative: JVD Chest Exam: Positive: Diminished Heart Exam: Positive: Rate Normal, Normal S1, Normal S2 Abdomen Exam: Positive: Soft; Negative: Tenderness Extremity Exam: Negative: Tenderness, Swelling Skin Exam: Positive: Other skin issue (+Chest Tube on the back right side) Psych Exam: Positive: Oriented x 3 Assessment /Plan Plan/VTE VTE Prophylaxis Ordered?: Yes Plan Multiple Right Sided Rib Fracture, Right Acromion Fracture 2/[address] imaging of the chest was remarkable for multiple right-sided rib fractures noted from Rib #'s 2-9, and #11. Right Rib #'s 4,6,7 were noted to be fractured in two places. There was also a fracture of the right acromion noted s/p Pigtail Catheter placement on 04/27/19 for right sided Hemothorax--thus far ~800 cc's of serosanguineous fluid has drained out Cont Pain control, PEP, Incentive Spirometry, Telemetry monitoring as ordered Follow up CXR this a.m. reveals improvement Thoracic surgery on board, input appreciated Hyperglycemia HgbA1c noted to be 7.3%--discussed with the patient he will continue to optimize his lifestyle habits and follow-up with a PCP regarding control of his blood sugar levels Hx of Polysubstance Abuse Patient counseled on cessation GI prophylaxis-PPI DVT Prophylaxis Heparin SC Disposition-pending continued clinical improvement VS, I&O, 24H, Fishbone Vital Signs/I&O Vital Signs Date Time Temp Pulse Resp B/P (MAP) Pulse Ox O2 Delivery O2 Flow Rate FiO2 04/28/19 12:00 97.8 85 18 130/73 (92) 96 2.0 04/28/19 04:00 Nasal Cannula I&O- Last 24 Hours up to 6 AM 04/28/19 05:59 Intake Total 780 ml Output Total 1890 ml Balance -1110 ml Laboratory Data 24H LABS Laboratory Tests 2 04/27/19 15:02: Body Fluid pH 7.579, Body Fluid pH Source PLEURAL, Body Fluid WBC (Auto) 1283H, Body Fluid RBC (Auto) 204, Body Fluid Mononuclear Cells % Auto 82.3H, Fluid Polymorphonuclear Cell % Auto 17.7H, Body Fluid Glucose Source PLEURAL, Body Fluid Glucose 113, Body Fluid Protein Source PLEURAL, Body Fluid Total Protein 3.2, Body Fluid Albumin Source PLEURAL, Body Fluid Albumin 1.8, Body Fluid LDH Source PLEURAL, Body Fluid Lactate Dehydrogenase 394, Body Fluid Amylase Source PLEURAL, Body Fluid Amylase 6, Body Fluid Cholesterol < 50, Body Fluid Cholesterol Source PLEURAL, Body Fluid Triglyceride Source PLEURAL, Body Fluid Triglycerides 40, Pleural Fluid Source PLEURAL, Pleural Fluid Color RED, Pleural Fluid Appearance CLOUDY 04/27/19 18:07: Bedside Glucose (Misc Panel) 152H 04/27/19 23:24: Bedside Glucose (Misc Panel) 185H 04/28/19 05:11: Immature Granulocyte % (Auto) 0.3, White Blood Count 8.7, Red Blood Count 4.15L, Hemoglobin 13.5, Hematocrit 41.1L, Mean Corpuscular Volume 99.0H, Mean Corpuscular Hemoglobin 32.5, Mean Corpuscular Hemoglobin Concent 32.8, Red Cell Distribution Width 12.7, Platelet Count 223, Neutrophils (%) (Auto) 74.3H, Lymphocytes (%) (Auto) 12.6L, Monocytes (%) (Auto) 9.2H, Eosinophils (%) (Auto) 3.1H, Basophils (%) (Auto) 0.5, Neutrophils # (Auto) 6.5, Lymphocytes # (Auto) 1.1L, Monocytes # (Auto) 0.8, Eosinophils # (Auto) 0.3, Basophils # (Auto) 0.0, Nucleated Red Blood Cells % (auto) 0.0, Anion Gap 5L, Glomerular Filtration Rate > 60.0, Blood Urea Nitrogen 17#, Creatinine 0.76, Sodium Level 138, Potassium Level 4.5, Chloride Level 101, Carbon Dioxide Level 32, Calcium Level 7.9L 04/28/19 12:13: Bedside Glucose (Misc Panel) 190H CBC/BMP Laboratory Tests 04/28/19 05:11 Red Blood Count 4.15 L, Mean Corpuscular Volume 99.0 H, Mean Corpuscular Hemoglobin 32.5, Mean Corpuscular Hemoglobin Concent 32.8, Red Cell Distribution Width 12.7, Neutrophils (%) (Auto) 74.3 H, Lymphocytes (%) (Auto) 12.6 L, Monocytes (%) (Auto) 9.2 H, Eosinophils (%) (Auto) 3.1 H, Basophils (%) (Auto) 0.5, Neutrophils # (Auto) 6.5, Lymphocytes # (Auto) 1.1 L, Monocytes # (Auto) 0.8, Eosinophils # (Auto) 0.3, Basophils # (Auto) 0.0, Calcium Level 7.9 L Microbiology Microbiology 04/27/19 Acid Fast Stain, Received Pending 04/27/19 Mycobacterial Culture, Received Pending 04/27/19 Fungal Smear, Received Pending 04/27/19 Fungal Culture, Received Pending 04/27/19 Gram Stain - Final, Resulted 04/27/19 Anaerobic Culture, Resulted Pending 04/27/19 Body Fluid Culture, Received Pending FREDIS SANCHEZ MD Apr 28, 2019 14:08
[2019-04-28] MEDS: MORPHINE 1MG/ML IN 0.9% NACL 100ML IV BAG IV PRN (19:40)
[2019-04-29] VITALS (24 sets, daily range): BP systolic 121–140; BP diastolic 64–81; O2SAT 79–100
[2019-04-29] MEDS: LEVALBUTEROL 1.25 MG/0.5 ML CONCENTRATE NEB NEB SCH ×4 (02:30→19:30)
[2019-04-29] MEDS: SODIUM CHLORIDE HYPERTONIC 3% 15ML NEB SOL INH SCH ×3 (02:30→15:13)
[2019-04-29] MEDS: KETOROLAC 30 MG/ML VIAL (J1885) IV SCH ×4 (03:34→20:21)
[2019-04-29] MEDS: SLF 3 ML SYR IV SCH ×3 (05:24→20:22)
[2019-04-29 05:31] LABS: BASO % 0.5 % (0.0-1.0); EOS # 0.3 10^3/uL (0.0-0.50); EOS % 3.1 % (0.0-3.0); HEMATOCRIT 40.4 % (42.0-52.0); HEMOGLOBIN 13.3 g/dl (13.5-17.5); LYMPH # 1.2 10^3/uL (1.5-4.5); LYMPH % 14.1 % (24.0-44.0); MEAN CORPUSCULAR HEMOGLOBIN 32.3 pg (27.0-33.0); MEAN CORPUSCULAR HGB CONC 32.9 g/dl (32.0-36.5); MEAN CORPUSCULAR VOLUME 98.1 fl (80.0-96.0); MONO # 0.7 10^3/uL (0.0-0.8); MONO % 8.7 % (0.0-5.0); NEUTROPHILS # 6.2 10^3/uL (1.8-7.7); NEUTROPHILS % 73.2 % (36.0-66.0); PLATELET COUNT, AUTOMATED 232 10^3/uL (150-450); RED BLOOD COUNT 4.12 10^6/uL (4.30-6.10); WHITE BLOOD COUNT 8.4 10^3/uL (4.0-10.0)
[2019-04-29 05:56] LABS: BLOOD UREA NITROGEN 17 MG/DL (7-18); CALCIUM LEVEL 8.4 MG/DL (8.5-10.1); CARBON DIOXIDE LEVEL 30 MEQ/L (21-32); CHLORIDE LEVEL 101 MEQ/L (98-107); CREATININE FOR GFR 0.74 MG/DL (0.70-1.30); GLOMERULAR FILTRATION RATE > 60.0 (>56); GLUCOSE, FASTING 134 MG/DL (70-100); POTASSIUM SERUM 4.6 MEQ/L (3.5-5.1); SODIUM LEVEL 136 MEQ/L (136-145)
--- NOTE | 2019-04-29 08:25 | REP ---
Chest x-ray: Two views. History: Rib fractures. Right-sided hemothorax. Comparison study: April 28, 2019. Findings: A right-sided. Percutaneous drainage catheter remains in place posterolaterally. There is improved pleural thickening along the right lateral chest wall. The lateral and posterior pleural angles are sharp. Multiple right-sided rib fractures are again noted. No new infiltrate is seen. There is evidence of a hiatal hernia behind the heart. Electronically Signed by Garrett Grant MD 04/29/2019 08:16 A
[2019-04-29] MEDS: HEPARIN SOD (PORCINE) 5000 UNITS/ML VIAL SC SCH ×2 (09:18→20:21)
[2019-04-29] MEDS: DOCUSATE SODIUM 100 MG CAP PO SCH ×2 (09:19→20:20)
[2019-04-29] MEDS: MOM 30ML SUSPENSION UDC PO SCH (09:19)
[2019-04-29] MEDS: PANTOPRAZOLE 40MG TAB (PROTONIX) PO SCH (09:19)
[2019-04-29] MEDS: NICOTINE 21MG/24HR 1 EA TRANSDERMAL TD SCH (09:20)
--- NOTE | 2019-04-29 10:16 | IPNPDOC ---
Subjective Date Seen The patient was seen on 04/29/19. Subjective Chief Complaint/HPI Patient seen and examined at the bedside. No acute overnight events noted. The patient denies any acute complaints at this time. Notes that his pain is well controlled. Objective Physical Examination General Exam: Positive: Alert, Cooperative, No Acute Distress ENT Exam: Positive: Atraumatic, Mucous membr. moist/pink Neck Exam: Negative: JVD Chest Exam: Positive: Diminished Heart Exam: Positive: Rate Normal, Normal S1, Normal S2 Abdomen Exam: Positive: Soft; Negative: Tenderness Extremity Exam: Negative: Tenderness, Swelling Skin Exam: Positive: Other skin issue (+Chest Tube on the back right side) Psych Exam: Positive: Oriented x 3 Assessment /Plan Plan/VTE VTE Prophylaxis Ordered?: Yes Plan Multiple Right Sided Rib Fracture, Right Acromion Fracture 12/[address] imaging of the chest was remarkable for multiple right-sided rib fractures noted from Rib #'s 2-9, and #11. Right Rib #'s 4,6,7 were noted to be fractured in two places. There was also a fracture of the right acromion noted s/p Pigtail Catheter placement on 04/27/19 for right sided Hemothorax--with additional 100 cc's drained so far today Cont Pain control, PEP, Incentive Spirometry, Telemetry monitoring as ordered We can consider transitioning to PO Pain meds Thoracic surgery on board, input appreciated Hyperglycemia HgbA1c noted to be 7.3%--discussed with the patient he will continue to optimize his lifestyle habits and follow-up with a PCP regarding control of his blood sugar levels Hx of Polysubstance Abuse Patient counseled on cessation GI prophylaxis-PPI DVT Prophylaxis Heparin SC Disposition-pending continued clinical improvement. Anticipate D/C in 24-48hrs. VS, I&O, 24H, Fishbone Vital Signs/I&O Vital Signs Date Time Temp Pulse Resp B/P (MAP) Pulse Ox O2 Delivery O2 Flow Rate FiO2 04/29/19 08:00 2.0 04/29/19 08:00 98.0 91 20 140/81 (100) 94 04/29/19 05:00 Nasal Cannula I&O- Last 24 Hours up to 6 AM 04/29/19 05:59 Intake Total 2025 ml Output Total 1845 ml Balance 180 ml Laboratory Data 24H LABS Laboratory Tests 2 04/28/19 12:13: Bedside Glucose (Misc Panel) 190H 04/28/19 17:29: Bedside Glucose (Misc Panel) 152H 04/28/19 21:31: Bedside Glucose (Misc Panel) 145H 04/29/19 05:08: Immature Granulocyte % (Auto) 0.4, White Blood Count 8.4, Red Blood Count 4.12L, Hemoglobin 13.3L, Hematocrit 40.4L, Mean Corpuscular Volume 98.1H, Mean Corpuscular Hemoglobin 32.3, Mean Corpuscular Hemoglobin Concent 32.9, Red Cell Distribution Width 12.5, Platelet Count 232, Neutrophils (%) (Auto) 73.2H, Lymphocytes (%) (Auto) 14.1L, Monocytes (%) (Auto) 8.7H, Eosinophils (%) (Auto) 3.1H, Basophils (%) (Auto) 0.5, Neutrophils # (Auto) 6.2, Lymphocytes # (Auto) 1.2L, Monocytes # (Auto) 0.7, Eosinophils # (Auto) 0.3, Basophils # (Auto) 0.0, Nucleated Red Blood Cells % (auto) 0.0, Anion Gap 5L, Glomerular Filtration Rate > 60.0, Blood Urea Nitrogen 17, Creatinine 0.74, Sodium Level 136, Potassium Level 4.6, Chloride Level 101, Carbon Dioxide Level 30, Calcium Level 8.4L CBC/BMP Laboratory Tests 04/29/19 05:08 Red Blood Count 4.12 L, Mean Corpuscular Volume 98.1 H, Mean Corpuscular Hemoglobin 32.3, Mean Corpuscular Hemoglobin Concent 32.9, Red Cell Distribution Width 12.5, Neutrophils (%) (Auto) 73.2 H, Lymphocytes (%) (Auto) 14.1 L, Monocytes (%) (Auto) 8.7 H, Eosinophils (%) (Auto) 3.1 H, Basophils (%) (Auto) 0.5, Neutrophils # (Auto) 6.2, Lymphocytes # (Auto) 1.2 L, Monocytes # (Auto) 0.7, Eosinophils # (Auto) 0.3, Basophils # (Auto) 0.0, Calcium Level 8.4 L Microbiology Microbiology 04/27/19 Acid Fast Stain, Received Pending 04/27/19 Mycobacterial Culture, Received Pending 04/27/19 Fungal Smear, Received Pending 04/27/19 Fungal Culture, Received Pending 04/27/19 Gram Stain - Final, Complete 04/27/19 Anaerobic Culture - Final, Complete 04/27/19 Body Fluid Culture - Final, Complete FREDIS SANCHEZ MD Apr 29, 2019 10:16
[2019-04-29] MEDS ORDERED: FUROSEMIDE 40 MG/4 ML VIAL (J1940) IV ONE (11:00)
--- NOTE | 2019-04-29 11:16 | IPN ---
DATE: 04/29/2019 This is the 8th hospital day for Mr. Bland. The epidural has been weaned and his pain is being well-controlled with patient-controlled analgesia (WEEDER) morphine pump. He is draining very little from his catheter and I removed it. We will change him over to oral pain control. His vital signs show a maximum temperature (T-max) of 98.2 with a heart rate that ranges between 91 and 87 in sinus rhythm, respiratory rate of 16-25 without the use of accessory muscles, who is 95% saturated on 2 liters nasal cannula. His blood pressure is ranging between 140/81 to 121/64. His intake and output over the past 24 hours has been recorded as 2115 in and 2395 out for a negativity of 280 mL. His catheter is draining 95 mL. Weight today is 105.9 kg with 105.3 kg yesterday. On physical examination, his lungs show mild crackles during late inspiration in the right base. Percussion note is full to the diaphragm. Cardiac exam is without murmurs, clicks, gallops or rubs. I cannot feel his point of maximum impulse (PMI). S1 and S2 are normal. Abdomen is soft and nontender. Bowel sounds are positive. There is no hepatomegaly. No costovertebral angle (CVA) tenderness. Extremities show no pretibial edema with no calf tenderness. No differential swelling of the upper extremities. Skin is warm, dry and perfused without cyanosis or mottling including that of the nail beds and knees. Neck is supple. There is no jugular venous distention. No subcutaneous emphysema. Trachea is midline. Mouth shows his mucous membranes to be pink and moist. Lips and commissures are without lesions. There is no thrush. Eyes show his pupils to be equal and reactive. Extraocular movements intact. Sclerae nonicteric. Neurologic shows II-XII intact along with gross motor and gross sensation intact. Gait is not tested. Psychiatric showed him to be awake, alert and oriented times three with appropriate and affect and conversational. His white count today is 8.4 with hemoglobin and hematocrit of 13.3 and 40.4 respectively with a platelet count of 232 and stable. Differential shows 73% neutrophils, 14% lymphocytes, 8% monocytes. There are no immature forms or toxic granulations. His electrolytes are normal with a BUN and creatinine of 17 and 0.74, glucose of 134, calcium 8.4. His chest x-ray today shows his lungs fully expanded to the chest wall with the right costophrenic angle clear. I see no other infiltrates. IMPRESSION: 1. Hospital day #8 with multiple rib fractures on the right side. 2. Hemothorax, resolved with pigtail catheter. 3. Severe atelectasis of the right lower lobe improving. 4. Tobacco abuse. 5. Obesity. 6. Occasional past history of cocaine and meth abuse. 7. Probable diabetes. 8. Prophylactic pain control, improved. PLAN AND DISCUSSION: As noted above, I will discontinue his WEEDER pump and start him on oral analgesia. I will diurese him once again today. We should plan for discharge in the morning if all goes well with regard to his pain control. He should be sent home on both Percocet and naproxen for pain control when he gets home.
[2019-04-30] VITALS (10 sets, daily range): BP systolic 117–134; BP diastolic 67–75; O2SAT 89–96
[2019-04-30] MEDS: SODIUM CHLORIDE HYPERTONIC 3% 15ML NEB SOL INH SCH ×2 (00:32→07:31)
[2019-04-30] MEDS: LEVALBUTEROL 1.25 MG/0.5 ML CONCENTRATE NEB NEB SCH ×2 (00:33→07:31)
[2019-04-30] MEDS: KETOROLAC 30 MG/ML VIAL (J1885) IV SCH ×2 (03:46→08:22)
[2019-04-30 05:51] LABS: BASO # 0.1 10^3/uL (0.0-0.2); BASO % 0.7 % (0.0-1.0); EOS # 0.2 10^3/uL (0.0-0.50); EOS % 3.1 % (0.0-3.0); HEMATOCRIT 40.7 % (42.0-52.0); HEMOGLOBIN 13.5 g/dl (13.5-17.5); LYMPH # 1.2 10^3/uL (1.5-4.5); LYMPH % 15.5 % (24.0-44.0); MEAN CORPUSCULAR HEMOGLOBIN 32.4 pg (27.0-33.0); MEAN CORPUSCULAR HGB CONC 33.2 g/dl (32.0-36.5); MEAN CORPUSCULAR VOLUME 97.6 fl (80.0-96.0); MONO # 0.7 10^3/uL (0.0-0.8); MONO % 9.2 % (0.0-5.0); NEUTROPHILS # 5.3 10^3/uL (1.8-7.7); NEUTROPHILS % 71.1 % (36.0-66.0); PLATELET COUNT, AUTOMATED 247 10^3/uL (150-450); RED BLOOD COUNT 4.17 10^6/uL (4.30-6.10); WHITE BLOOD COUNT 7.5 10^3/uL (4.0-10.0)
[2019-04-30 06:12] LABS: BLOOD UREA NITROGEN 16 MG/DL (7-18); CALCIUM LEVEL 8.4 MG/DL (8.5-10.1); CARBON DIOXIDE LEVEL 29 MEQ/L (21-32); CHLORIDE LEVEL 101 MEQ/L (98-107); CREATININE FOR GFR 0.79 MG/DL (0.70-1.30); GLOMERULAR FILTRATION RATE > 60.0 (>56); GLUCOSE, FASTING 127 MG/DL (70-100); POTASSIUM SERUM 4.3 MEQ/L (3.5-5.1); SODIUM LEVEL 137 MEQ/L (136-145)
[2019-04-30] MEDS: SLF 3 ML SYR IV SCH (06:27)
[2019-04-30] MEDS: HEPARIN SOD (PORCINE) 5000 UNITS/ML VIAL SC SCH (08:22)
[2019-04-30] MEDS: MOM 30ML SUSPENSION UDC PO SCH (08:22)
[2019-04-30] MEDS: NICOTINE 21MG/24HR 1 EA TRANSDERMAL TD SCH (08:22)
[2019-04-30] MEDS: PANTOPRAZOLE 40MG TAB (PROTONIX) PO SCH (08:23)
[2019-04-30] MEDS: DOCUSATE SODIUM 100 MG CAP PO SCH (08:23)
--- NOTE | 2019-04-30 08:29 | REP ---
Chest x-ray: Two views. History: Hemothorax. Fractured ribs. Comparison study: April 29, 2019. Findings: The right pleural pigtail drainage catheter has been removed in the interval since yesterday's radiograph. Mild right pleural thickening persists. Pleural angles are sharp laterally. There is slight blunting posteriorly on the right. There is no evidence of pneumothorax. Multiple right rib fractures again noted. No new infiltrate. Electronically Signed by Garrett Grant MD 04/30/2019 08:21 A
[2019-04-30] MEDS ORDERED: KETO10TAB PO (09:26)
[2019-04-30] MEDS ORDERED: PERCOCET PO (09:26)
[2019-04-30] MEDS ORDERED: NICO21PAT TD (09:26)
--- NOTE | 2019-04-30 12:07 | DSES ---
DATE OF ADMISSION: 04/21/2019 DATE OF DISCHARGE: 04/30/2019 DISCHARGE DIAGNOSES: 1. Multiple rib fractures, hospital day #9, on right side, ribs 3, 4, 5, 6, 7, 8, 9, maybe 10 and 11 posteriorly. 2. Hemothorax. 3. Severe atelectasis of right lower lobe, improving at discharge. 4. Tobacco abuse. 5. Obesity. 6. Occasional past history of cocaine and meth abuse. 7. Probable diabetes. 8. Hypertension. 9. Problematic pain control, improved at discharge. HOSPITAL COURSE: Patient is a 54-year-old white male who was cutting a limb of a tree while he was on a ladder and fell 15 feet to the ground. He did not think that he hit anything on the ground, including a tree stump. He immediately felt pain and shortness of breath and was taken to the emergency room where he was found to have multiple rib fractures. He was admitted to the hospital with a small hemithorax which was observed, which eventually got larger and was drained with a pigtail catheter. He had an epidural placed for pain control which was eventually weaned, and he was transitioned to Percocet 5/325 every 4 hours as needed pain and continued on intravenous (IV) Toradol. The IV Toradol worked the best on him. He participated well in lung expansion therapy including PEP and incentive spirometry. He is being discharged today on ketorolac 10 mg every 6 hours as needed pain, nicotine patch 21 mg daily, and Percocet 5/325 every 4 hours as needed pain. His electrolytes are normal on discharge with a BUN, creatinine of 16 and 0.79, and his white count is 7.5 with a hemoglobin/hematocrit of 13.5 and 40.7. His chest x-ray shows his lung fully expanded to the chest wall. There are no infiltrates. There is some atelectasis in the right lower hemithorax. He will return to see me in 7-10 days in the office for post-hospitalization followup. He has been advised not to drive as he is on narcotic pain control as well as residual pain making him a danger to himself and others. I have, however, encouraged him to be as active as he can and use his incentive spirometer at home. edited: 05/01/2019 0716 wilmer ARAIZA
--- NOTE | 2019-04-30 17:51 | IPNPDOC ---
Subjective Date Seen The patient was seen on 04/30/19. Subjective Chief Complaint/HPI Patient seen and examined at the bedside. No acute overnight events noted. The patient states his pain is tolerated well, and there are plans to discharge him today by thoracic surgery. Objective Physical Examination General Exam: Positive: Alert, Cooperative, No Acute Distress ENT Exam: Positive: Atraumatic, Mucous membr. moist/pink Neck Exam: Negative: JVD Chest Exam: Positive: Diminished Heart Exam: Positive: Rate Normal, Normal S1, Normal S2 Abdomen Exam: Positive: Soft; Negative: Tenderness Extremity Exam: Negative: Tenderness, Swelling Psych Exam: Positive: Oriented x 3 Assessment /Plan Plan/VTE VTE Prophylaxis Ordered?: Yes Plan Multiple Right Sided Rib Fracture, Right Acromion Fracture 12/[address] imaging of the chest was remarkable for multiple right-sided rib fractures noted from Rib #'s 2-9, and #11. Right Rib #'s 4,6,7 were noted to be fractured in two places. There was also a fracture of the right acromion noted s/p Pigtail Catheter placement on 04/27/19, and removal on 04/29/19 Patient tolerating by mouth medications well for pain. He is scheduled to be discharged home today, and follow-up with thoracic surgery as an outpatient. Hyperglycemia HgbA1c noted to be 7.3%--discussed with the patient he will continue to optimize his lifestyle habits and follow-up with a PCP regarding control of his blood sugar levels Hx of Polysubstance Abuse Patient counseled on cessation GI prophylaxis-PPI DVT Prophylaxis Heparin SC Disposition-Anticipated discharge today by thoracic surgery. VS, I&O, 24H, Fishbone Vital Signs/I&O Vital Signs Date Time Temp Pulse Resp B/P (MAP) Pulse Ox O2 Delivery O2 Flow Rate FiO2 04/30/19 09:00 94 Room Air 04/30/19 08:00 97.3 96 18 134/75 (94) 04/30/19 06:00 1.0 I&O- Last 24 Hours up to 6 AM 04/30/19 05:59 Intake Total 880 ml Output Total 850 ml Balance 30 ml Laboratory Data 24H LABS Laboratory Tests 2 04/29/19 21:54: Bedside Glucose (Misc Panel) 109H 04/30/19 05:32: Immature Granulocyte % (Auto) 0.4, White Blood Count 7.5, Red Blood Count 4.17L, Hemoglobin 13.5, Hematocrit 40.7L, Mean Corpuscular Volume 97.6H, Mean Corpuscular Hemoglobin 32.4, Mean Corpuscular Hemoglobin Concent 33.2, Red Cell Distribution Width 12.3, Platelet Count 247, Neutrophils (%) (Auto) 71.1H, Lymphocytes (%) (Auto) 15.5L, Monocytes (%) (Auto) 9.2H, Eosinophils (%) (Auto) 3.1H, Basophils (%) (Auto) 0.7, Neutrophils # (Auto) 5.3, Lymphocytes # (Auto) 1.2L, Monocytes # (Auto) 0.7, Eosinophils # (Auto) 0.2, Basophils # (Auto) 0.1, Nucleated Red Blood Cells % (auto) 0.0, Anion Gap 7L, Glomerular Filtration Rate > 60.0, Blood Urea Nitrogen 16, Creatinine 0.79, Sodium Level 137, Potassium Level 4.3, Chloride Level 101, Carbon Dioxide Level 29, Calcium Level 8.4L CBC/BMP Laboratory Tests 04/30/19 05:32 Red Blood Count 4.17 L, Mean Corpuscular Volume 97.6 H, Mean Corpuscular Hemoglobin 32.4, Mean Corpuscular Hemoglobin Concent 33.2, Red Cell Distribution Width 12.3, Neutrophils (%) (Auto) 71.1 H, Lymphocytes (%) (Auto) 15.5 L, Monocytes (%) (Auto) 9.2 H, Eosinophils (%) (Auto) 3.1 H, Basophils (%) (Auto) 0.7, Neutrophils # (Auto) 5.3, Lymphocytes # (Auto) 1.2 L, Monocytes # (Auto) 0.7, Eosinophils # (Auto) 0.2, Basophils # (Auto) 0.1, Calcium Level 8.4 L Microbiology Microbiology 04/27/19 Acid Fast Stain, Received Pending 04/27/19 Mycobacterial Culture, Received Pending 04/27/19 Fungal Smear, Received Pending 04/27/19 Fungal Culture, Received Pending 04/27/19 Gram Stain - Final, Complete 04/27/19 Anaerobic Culture - Final, Complete 04/27/19 Body Fluid Culture - Final, Complete FREDIS SANCHEZ MD Apr 30, 2019 17:51
== END 2019-04-30 11:43 | disposition home or self-care (01) | DRG 135 ==
LOC: M ED 12:41 → M ED INP 15:17 → M PCU 18:29
PROVIDERS: ADMIT Internal Medicine; ATTEND Thoracic Surgery (Cardiothoracic Vascular Surgery)
PROC: 0W9930Z Drainage of Right Pleural Cavity with Drainage Device, Percutaneous Approach (ICD-10-PCS; principal; 2019-04-27)
DX: S27.1XXA Traumatic hemothorax, initial encounter (principal); S22.41XA Multiple fractures of ribs, right side, initial encounter for closed fracture; E87.2 Acidosis; E11.65 Type 2 diabetes mellitus with hyperglycemia; J98.11 Atelectasis; F17.210 Nicotine dependence, cigarettes, uncomplicated; I10 Essential (primary) hypertension; E66.9 Obesity, unspecified; W11.XXXA Fall on and from ladder, initial encounter; Y92.009 Unspecified place in unspecified non-institutional (private) residence as the place of occurrence of the external cause; F14.90 Cocaine use, unspecified, uncomplicated; F12.90 Cannabis use, unspecified, uncomplicated

== ENCOUNTER 2019-05-11 10:52 | Emergency (ER) | payer OTHER ==
[~2019-05-11] VITALS: Ht 175.3 cm; Wt 100.0 kg
[~2019-05-11 10:52] MED LIST changes: -NON-325T5 PO
[2019-05-11] MEDS ORDERED: NON-325T5 PO (10:58)
[2019-05-11 11:23] LABS: BASO # 0.1 10^3/uL (0.0-0.2); BASO % 0.9 % (0.0-1.0); EOS # 0.8 10^3/uL (0.0-0.50); EOS % 8.6 % (0.0-3.0); HEMATOCRIT 40.7 % (42.0-52.0); HEMOGLOBIN 13.6 g/dl (13.5-17.5); LYMPH # 1.9 10^3/uL (1.5-4.5); LYMPH % 21.3 % (24.0-44.0); MEAN CORPUSCULAR HEMOGLOBIN 32.9 pg (27.0-33.0); MEAN CORPUSCULAR HGB CONC 33.4 g/dl (32.0-36.5); MEAN CORPUSCULAR VOLUME 98.3 fl (80.0-96.0); MONO # 0.6 10^3/uL (0.0-0.8); MONO % 6.7 % (0.0-5.0); NEUTROPHILS # 5.6 10^3/uL (1.8-7.7); NEUTROPHILS % 62.2 % (36.0-66.0); PLATELET COUNT, AUTOMATED 286 10^3/uL (150-450); RED BLOOD COUNT 4.14 10^6/uL (4.30-6.10)
[2019-05-11 11:47] LABS: BLOOD UREA NITROGEN 16 MG/DL (7-18); C REACTIVE PROTEIN QUANTITATIV 1.28 MG/DL (0.00-0.30); CALCIUM LEVEL 8.7 MG/DL (8.5-10.1); CARBON DIOXIDE LEVEL 28 MEQ/L (21-32); CHLORIDE LEVEL 109 MEQ/L (98-107); CREATININE FOR GFR 1.02 MG/DL (0.70-1.30); GLOMERULAR FILTRATION RATE > 60.0 (>56); GLUCOSE, FASTING 107 MG/DL (70-100); POTASSIUM SERUM 4.5 MEQ/L (3.5-5.1); SODIUM LEVEL 143 MEQ/L (136-145)
--- NOTE | 2019-05-11 11:55 | REP ---
Clinical: Left lower extremity pain . Technique: Angel scale and color Doppler evaluation using linear high frequency transducer. Findings: Ultrasound examination of the left lower extremity deep venous structures from the common femoral vein to the popliteal vein demonstrates normal compressibility flow and wave patterns in response to respiration and augmentation. There is no evidence for deep venous thrombosis. Impression: No evidence for deep venous thrombosis. Electronically Signed by Rodriguez Vasquez MD 05/11/2019 11:47 A
[2019-05-11 12:03] LABS: ERYTHROCYTE SEDIMENTATION RATE 35 mm/hr (0-20)
[2019-05-11 12:22] VITALS: BP 132/71
== END 2019-05-11 12:35 | disposition home or self-care (01) ==
LOC: M ED 10:52
DX: S81.812D Laceration without foreign body, left lower leg, subsequent encounter (principal); M79.89 Other specified soft tissue disorders; M25.471 Effusion, right ankle; M25.472 Effusion, left ankle; W14.XXXD Fall from tree, subsequent encounter; I10 Essential (primary) hypertension; E03.9 Hypothyroidism, unspecified; K21.9 Gastro-esophageal reflux disease without esophagitis; M54.9 Dorsalgia, unspecified; F17.200 Nicotine dependence, unspecified, uncomplicated; Z79.899 Other long term (current) drug therapy

== ENCOUNTER → 2019-05-11 | Outpatient (CLI) | payer OTHER ==
[~2019-05-11] MED LIST: KETO10TAB PO; NICO21PAT TD; NON-325T5 PO; PERCOCET PO
--- NOTE | 2019-05-11 09:45 | REP ---
Clinical: Right rib fractures. Comparison: 04/30/2019. Technique: PA and lateral. Findings: Multiple posterior right upper rib fractures are again identified. Small right pleural effusion/reaction is again noted and unchanged. No obvious pneumothorax. The left hemithorax appears clear. Mediastinum and cardiac silhouette appear normal. Impression: 1. Stable appearance to the right rib fractures. 2. Small residual right basilar pleural reaction/effusion unchanged. Electronically Signed by Rodriguez Vasquez MD 05/11/2019 09:37 A
[2019-05-11 14:03] LABS: HEMATOCRIT 41.6 % (42.0-52.0); HEMOGLOBIN 13.8 g/dl (13.5-17.5); MEAN CORPUSCULAR HEMOGLOBIN 33.1 pg (27.0-33.0); MEAN CORPUSCULAR HGB CONC 33.2 g/dl (32.0-36.5); MEAN CORPUSCULAR VOLUME 99.8 fl (80.0-96.0); PLATELET COUNT, AUTOMATED 328 10^3/uL (150-450); RED BLOOD COUNT 4.17 10^6/uL (4.30-6.10); WHITE BLOOD COUNT 9.2 10^3/uL (4.0-10.0)
[2019-05-11 14:32] LABS: ALBUMIN 3.3 GM/DL (3.2-5.2); ALT/SGPT 17 U/L (12-78); BILIRUBIN,TOTAL 0.2 MG/DL (0.2-1.0); BLOOD UREA NITROGEN 17 MG/DL (7-18); CALCIUM LEVEL 8.7 MG/DL (8.5-10.1); CARBON DIOXIDE LEVEL 28 MEQ/L (21-32); CHLORIDE LEVEL 107 MEQ/L (98-107); GLOMERULAR FILTRATION RATE > 60.0 (>56); GLUCOSE, FASTING 89 MG/DL (70-100); POTASSIUM SERUM 4.8 MEQ/L (3.5-5.1); SODIUM LEVEL 141 MEQ/L (136-145); TOTAL PROTEIN 7.2 GM/DL (6.4-8.2)
== END ==
LOC: M SMT 09:11
PROVIDERS: ATTEND Thoracic Surgery (Cardiothoracic Vascular Surgery)
DX: S22.41XD Multiple fractures of ribs, right side, subsequent encounter for fracture with routine healing (principal); X58.XXXD Exposure to other specified factors, subsequent encounter

== ENCOUNTER 2024-03-08 13:17 | Inpatient (IN) | payer MEDICAID, OTHER, SELFPAY ==
[~2024-03-08] VITALS: Ht 172.7 cm; Wt 63.1 kg
[2024-03-08] MEDS: NICOTINE 21MG/24HR 1 EA TRANSDERMAL TD SCH (09:00)
[~2024-03-08 13:17] MED LIST changes: +ACET32TAB PO
[2024-03-08] MEDS: NS 1,000 ML IV SCH ×2 (14:15→20:16)
[2024-03-08 14:44] LABS: VENOUS BASE EXCESS 4.3 (-2.0-2.0); VENOUS O2 SATURATION 87.1 % (60.0-80.0); VENOUS PARTIAL PRESSURE CO2 49.7 mmHg (38.0-50.0); VENOUS PARTIAL PRESSURE O2 49.7 mmHg (30.0-50.0); VENOUS PH 7.399 UNITS (7.330-7.430); VENOUS STANDARD HCO3 28.1 MMOL/L; VENOUS TOTAL CO2 31.6 MMOL/L (24.0-28.0)
[2024-03-08 14:55] LABS: BASO % 0.1 % (0.0-1.0); EOS % 0.4 % (0.0-3.0); HEMATOCRIT 38.4 % (42.0-52.0); HEMOGLOBIN 11.3 g/dl (13.5-17.5); LYMPH % 13.8 % (24.0-44.0); MEAN CORPUSCULAR HEMOGLOBIN 26.9 pg (27.0-33.0); MEAN CORPUSCULAR HGB CONC 29.4 g/dl (32.0-36.5); MEAN CORPUSCULAR VOLUME 91.4 fl (80.0-96.0); MONO # 0.8 10^3/uL (0.0-0.8); MONO % 10.8 % (2.0-8.0); NEUTROPHILS # 5.6 10^3/uL (1.5-8.5); NEUTROPHILS % 74.5 % (36.0-66.0); PLATELET COUNT, AUTOMATED 377 10^3/uL (150-450); WHITE BLOOD COUNT 7.5 10^3/uL (4.0-10.0)
[2024-03-08 15:36] LABS: ALBUMIN 1.5 G/DL (3.2-5.2); ALKALINE PHOSPHATASE 272 U/L (46-116); ALT/SGPT < 9 U/L (7.0-40); AST/SGOT < 8 U/L (<34); BILIRUBIN,DIRECT < 0.1 MG/DL (<0.4); BILIRUBIN,TOTAL < 0.2 MG/DL (0.3-1.2); BLOOD UREA NITROGEN 10 MG/DL (9-23); CALCIUM LEVEL 10.9 MG/DL (8.3-10.6); CARBON DIOXIDE LEVEL 31 MMOL/L (20-31); CHLORIDE LEVEL 96 MMOL/L (98-107); CREATININE FOR GFR 0.43 MG/DL (0.70-1.30); GLOMERULAR FILTRATION RATE > 60.0 (>49); GLUCOSE, FASTING 888 MG/DL (74-106); SODIUM LEVEL 136 MMOL/L (136-145); TOTAL PROTEIN 6.9 G/DL (5.7-8.2)
[2024-03-08] MEDS ORDERED: ISOVUE-370 76% 100ML VIAL As Ordered ONE (15:42)
[2024-03-08] MEDS: HumuLIN R (REGULAR) INSULIN (NovoLIN R) **100U/ML** PER UNIT IV ONE (17:02)
[2024-03-08] MEDS: NS 1,000 ML IV ONE ×3 (17:05→17:41)
[2024-03-08] MEDS ORDERED: HOME MED LIST COMPLETE! XX SCH (17:05)
[2024-03-08] MEDS ORDERED: NS 1,000 ML IV ONE (17:35)
[2024-03-08] MEDS ORDERED: MOM 30ML SUSPENSION UDC PO PRN (17:55)
[2024-03-08 18:24] LABS: HEMOGLOBIN A1c 13.7 % (4.0-6.0)
[2024-03-08] MEDS ORDERED: GLUCAGON INJ 1MG VIAL SC PRN (19:10)
[2024-03-08] MEDS ORDERED: GLUCOSE 4 GM CHEW PO PRN (19:10)
[2024-03-08] MEDS ORDERED: DEXTROSE 50% 50ML SYRINGE IV PRN (19:10)
[2024-03-08 20:23] VITALS: BP 118/74; TEMP 97.9; O2SAT 92
[2024-03-08 20:47] LABS: INR 1.27; PARTIAL THROMBOPLASTIN TIME 31.9 SECONDS (24.8-34.2); PROTHROMBIN TIME 15.5 SECONDS (12.5-14.5)
[2024-03-08 21:09] LABS: CHOLESTEROL RISK RATIO 2.34 (<5); HDL CHOLESTEROL 29.9 MG/DL (>40); LDL CHOLESTEROL 28.7 MG/DL (<100); NON-HDL-C 40.1 MG/DL
[2024-03-08] MEDS: LEVEMIR (INSULIN DETEMIR) 1 UNITS/0.01ML SC SCH (21:35)
[2024-03-08] MEDS: INSULIN LISPRO (NovoLOG) PER UNIT SC SCH (21:35)
[2024-03-08] MEDS: ENOXAPARIN 40MG/0.4ML SYRINGE (J1650 PER 10MG) SC SCH (21:36)
[2024-03-08 22:41] LABS: ACETONE/KETONE 0.05 MMOL/L (0.02-0.27)
[2024-03-08] MEDS: NS 500 ML IV ONE (23:27)
[2024-03-09 06:00] VITALS: BP 106/58; TEMP 98.6; O2SAT 93
[2024-03-09 06:14] LABS: HEMATOCRIT 33.1 % (42.0-52.0); MEAN CORPUSCULAR HEMOGLOBIN 26.7 pg (27.0-33.0); MEAN CORPUSCULAR HGB CONC 30.2 g/dl (32.0-36.5); MEAN CORPUSCULAR VOLUME 88.5 fl (80.0-96.0); PLATELET COUNT, AUTOMATED 374 10^3/uL (150-450); RED BLOOD COUNT 3.74 10^6/uL (4.30-6.10); WHITE BLOOD COUNT 10.4 10^3/uL (4.0-10.0)
[2024-03-09 06:47] LABS: ALBUMIN 1.2 G/DL (3.2-5.2); ALKALINE PHOSPHATASE 132 U/L (46-116); ALT/SGPT < 9 U/L (7.0-40); AST/SGOT < 8 U/L (<34); BILIRUBIN,TOTAL 0.2 MG/DL (0.3-1.2); BLOOD UREA NITROGEN 6 MG/DL (9-23); CALCIUM LEVEL 9.6 MG/DL (8.3-10.6); CARBON DIOXIDE LEVEL 34 MMOL/L (20-31); CHLORIDE LEVEL 109 MMOL/L (98-107); CREATININE FOR GFR 0.46 MG/DL (0.70-1.30); GLOMERULAR FILTRATION RATE > 60.0 (>49); GLUCOSE, FASTING 67 MG/DL (74-106); POTASSIUM SERUM 3.7 MMOL/L (3.5-5.1); SODIUM LEVEL 146 MMOL/L (136-145)
[2024-03-09] MEDS: INSULIN LISPRO (NovoLOG) PER UNIT SC SCH (07:30)
[2024-03-09] MEDS: LEVEMIR (INSULIN DETEMIR) 1 UNITS/0.01ML SC SCH (09:45)
[2024-03-09 14:00] VITALS: BP 108/73; TEMP 98.1; O2SAT 97
[2024-03-09] MEDS: ACETAMINOPHEN TAB 650MG DOSE (2X325MG) PO PRN (17:18)
[2024-03-09] MEDS: LevoFLOXacin 500 MG TABLET PO SCH (19:19)
[2024-03-09 21:14] VITALS: BP 113/69; TEMP 98.4; O2SAT 96
[2024-03-10] VITALS (7 sets, daily range): BP systolic 108–113; BP diastolic 68–72; TEMP 97.7–98.8; O2SAT 94–97
[2024-03-10 06:31] LABS: HEMATOCRIT 37.7 % (42.0-52.0); HEMOGLOBIN 11.5 g/dl (13.5-17.5); MEAN CORPUSCULAR HEMOGLOBIN 26.9 pg (27.0-33.0); MEAN CORPUSCULAR HGB CONC 30.5 g/dl (32.0-36.5); MEAN CORPUSCULAR VOLUME 88.1 fl (80.0-96.0); PLATELET COUNT, AUTOMATED 409 10^3/uL (150-450); RED BLOOD COUNT 4.28 10^6/uL (4.30-6.10); WHITE BLOOD COUNT 9.5 10^3/uL (4.0-10.0)
[2024-03-10 06:50] LABS: ALBUMIN 1.5 G/DL (3.2-5.2); ALKALINE PHOSPHATASE 147 U/L (46-116); ALT/SGPT 10 U/L (7.0-40); AST/SGOT 10 U/L (<34); BILIRUBIN,TOTAL 0.3 MG/DL (0.3-1.2); BLOOD UREA NITROGEN 8 MG/DL (9-23); CALCIUM LEVEL 10.5 MG/DL (8.3-10.6); CARBON DIOXIDE LEVEL 31 MMOL/L (20-31); CHLORIDE LEVEL 98 MMOL/L (98-107); CREATININE FOR GFR 0.48 MG/DL (0.70-1.30); GLOMERULAR FILTRATION RATE > 60.0 (>49); GLUCOSE, FASTING 112 MG/DL (74-106); POTASSIUM SERUM 4.1 MMOL/L (3.5-5.1); SODIUM LEVEL 134 MMOL/L (136-145); TOTAL PROTEIN 6.9 G/DL (5.7-8.2)
[2024-03-10] MEDS: LEVEMIR (INSULIN DETEMIR) 1 UNITS/0.01ML SC SCH (09:00)
[2024-03-10] MEDS ORDERED: LIDOCAINE 1% MDV 20ML VIAL As Ordered ONE (13:54)
[2024-03-10] MEDS: PERCOCET 5MG/325MG TAB PO PRN (18:49)
[2024-03-11 05:45] VITALS: BP 102/71; TEMP 97.9; O2SAT 96
[2024-03-11 05:49] LABS: HEMATOCRIT 33.2 % (42.0-52.0); HEMOGLOBIN 10.2 g/dl (13.5-17.5); MEAN CORPUSCULAR HEMOGLOBIN 26.6 pg (27.0-33.0); MEAN CORPUSCULAR HGB CONC 30.7 g/dl (32.0-36.5); MEAN CORPUSCULAR VOLUME 86.7 fl (80.0-96.0); PLATELET COUNT, AUTOMATED 349 10^3/uL (150-450); RED BLOOD COUNT 3.83 10^6/uL (4.30-6.10); WHITE BLOOD COUNT 6.1 10^3/uL (4.0-10.0)
[2024-03-11 06:16] LABS: ALBUMIN 1.3 G/DL (3.2-5.2); ALKALINE PHOSPHATASE 123 U/L (46-116); ALT/SGPT < 9 U/L (7.0-40); AST/SGOT < 8 U/L (<34); BILIRUBIN,TOTAL 0.2 MG/DL (0.3-1.2); BLOOD UREA NITROGEN 10 MG/DL (9-23); CALCIUM LEVEL 9.8 MG/DL (8.3-10.6); CARBON DIOXIDE LEVEL 29 MMOL/L (20-31); CHLORIDE LEVEL 100 MMOL/L (98-107); CREATININE FOR GFR 0.43 MG/DL (0.70-1.30); GLOMERULAR FILTRATION RATE > 60.0 (>49); GLUCOSE, FASTING 182 MG/DL (74-106); POTASSIUM SERUM 3.8 MMOL/L (3.5-5.1); SODIUM LEVEL 134 MMOL/L (136-145)
[2024-03-11 14:00] VITALS: BP 101/68; TEMP 97.7; O2SAT 97
[2024-03-11 20:50] VITALS: BP 92/52; TEMP 97.7; O2SAT 95
[2024-03-12 05:30] VITALS: BP 102/65; TEMP 97.7; O2SAT 97
[2024-03-12] MEDS ORDERED: INSUDET SC (11:23)
[2024-03-12] MEDS ORDERED: LEVO1TAB39 PO (11:23)
[2024-03-12] MEDS ORDERED: PREG25CA PO (11:23)
[2024-03-12] MEDS ORDERED: [UNRECOGNIZED DRUG - CODE] SC (11:26)
[2024-03-12] MEDS ORDERED: METF500T13 PO (11:26)
[2024-03-12] MEDS ORDERED: LANC1COM MC ×2 (11:30→13:13)
[2024-03-12] MEDS ORDERED: GLUCMIS7 XX (11:30)
[2024-03-12] MEDS: PREGABALIN 25 MG CAP (LYRICA) PO SCH (13:00)
[2024-03-12] MEDS ORDERED: ULTI70PA2 XX (13:13)
[2024-03-12 14:00] VITALS: BP 104/70; TEMP 98.2; O2SAT 98
[2024-03-12] MEDS: NS 500 ML IV ONE (14:59)
== END 2024-03-12 17:23 | disposition home or self-care (01) | DRG 136 ==
LOC: M ED 13:17 → M ED INP 17:52 → ENRESERV 19:43 → M MSPAV 20:23
PROVIDERS: ADMIT Internal Medicine; ATTEND Student in an Organized Health Care Education/Training Program
PROC: 0BBC3ZX Excision of Right Upper Lung Lobe, Percutaneous Approach, Diagnostic (ICD-10-PCS; principal; 2024-03-10 15:00)
DX: C34.11 Malignant neoplasm of upper lobe, right bronchus or lung (principal); J18.9 Pneumonia, unspecified organism; E46 Unspecified protein-calorie malnutrition; E11.40 Type 2 diabetes mellitus with diabetic neuropathy, unspecified; E11.649 Type 2 diabetes mellitus with hypoglycemia without coma; E27.8 Other specified disorders of adrenal gland; E83.52 Hypercalcemia; F14.10 Cocaine abuse, uncomplicated; F17.200 Nicotine dependence, unspecified, uncomplicated; I10 Essential (primary) hypertension; R29.6 Repeated falls; R53.1 Weakness; R63.4 Abnormal weight loss; J44.9 Chronic obstructive pulmonary disease, unspecified

== ENCOUNTER 2024-04-03 10:58 | Inpatient (IN) | payer MEDICAID, OTHER ==
[~2024-04-03] VITALS: Ht 177.8 cm; Wt 72.3 kg
[~2024-04-03 10:58] MED LIST changes: +GLUCMIS7 XX; +IBUP200T46 PO; +INSUDET SC; +LANC1COM MC; +LEVO1TAB39 PO; +METF500T13 PO; +OXYC-517 PO; +PREG25CA PO; +ULTI70PA2 XX; +[UNRECOGNIZED DRUG - CODE] SC
[2024-04-03 11:54] LABS: VENOUS BASE EXCESS 0.1 (-2.0-2.0); VENOUS HCO3 25.2 MMOL/L (23.0-27.0); VENOUS O2 SATURATION 75.2 % (60.0-80.0); VENOUS PARTIAL PRESSURE CO2 42.6 mmHg (38.0-50.0); VENOUS PARTIAL PRESSURE O2 39.3 mmHg (30.0-50.0); VENOUS PH 7.389 UNITS (7.330-7.430); VENOUS STANDARD HCO3 24.2 MMOL/L; VENOUS TOTAL CO2 26.5 MMOL/L (24.0-28.0)
[2024-04-03] MEDS: NS 1,910 ML in IV 1 EA IV ONE (11:56)
[2024-04-03 11:59] LABS: BASO % 0.2 % (0.0-1.0); EOS % 0.1 % (0.0-3.0); HEMATOCRIT 26.4 % (42.0-52.0); HEMOGLOBIN 8.1 g/dl (13.5-17.5); LYMPH # 0.6 10^3/uL (1.5-5.0); LYMPH % 5.7 % (24.0-44.0); MEAN CORPUSCULAR HEMOGLOBIN 26.3 pg (27.0-33.0); MEAN CORPUSCULAR HGB CONC 30.7 g/dl (32.0-36.5); MEAN CORPUSCULAR VOLUME 85.7 fl (80.0-96.0); MONO # 0.4 10^3/uL (0.0-0.8); MONO % 4.4 % (2.0-8.0); NEUTROPHILS # 8.7 10^3/uL (1.5-8.5); NEUTROPHILS % 89.2 % (36.0-66.0); PLATELET COUNT, AUTOMATED 395 10^3/uL (150-450); RED BLOOD COUNT 3.08 10^6/uL (4.30-6.10); WHITE BLOOD COUNT 9.8 10^3/uL (4.0-10.0)
[2024-04-03 12:12] LABS: INR 1.27; PROTHROMBIN TIME 15.5 SECONDS (12.5-14.5)
[2024-04-03 12:43] LABS: PROCALCITONIN 0.43 ng/ml
[2024-04-03 12:46] LABS: ALBUMIN 1.4 G/DL (3.2-5.2); ALKALINE PHOSPHATASE 115 U/L (46-116); ALT/SGPT 11 U/L (7.0-40); AMYLASE < 20 U/L (30-118); AST/SGOT 16 U/L (<34); BILIRUBIN,DIRECT 0.2 MG/DL (<0.4); BILIRUBIN,TOTAL 0.3 MG/DL (0.3-1.2); BLOOD UREA NITROGEN 19 MG/DL (9-23); CALCIUM LEVEL 9.5 MG/DL (8.3-10.6); CARBON DIOXIDE LEVEL 28 MMOL/L (20-31); CHLORIDE LEVEL 103 MMOL/L (98-107); GLOMERULAR FILTRATION RATE > 60.0 (>49); GLUCOSE, FASTING 134 MG/DL (74-106); SODIUM LEVEL 135 MMOL/L (136-145); TOTAL PROTEIN 6.2 G/DL (5.7-8.2)
[2024-04-03] MEDS ORDERED: ISOVUE-370 76% 100ML VIAL As Ordered ONE (13:13)
[2024-04-03] MEDS ORDERED: NICO14DI6 TOP (14:15)
[2024-04-03] MEDS ORDERED: OXYC-517 PO (14:15)
[2024-04-03] MEDS ORDERED: HOME MED LIST COMPLETE! XX SCH (14:15)
[2024-04-03] MEDS ORDERED: METF500T13 PO (14:15)
[2024-04-03] MEDS ORDERED: INSU100I48 SQ (14:15)
[2024-04-03] MEDS ORDERED: IBUP1TAB7 PO (14:15)
[2024-04-03] MEDS: ACETAMINOPHEN 500 MG TAB PO ONE (14:35)
[2024-04-03 14:45] LABS: APPEARANCE, URINE CLEAR (CLEAR); BACTERIA, URINE AUTO NEGATIVE (NEGATIVE); BILIRUBIN, URINE AUTO NEGATIVE (NEGATIVE); BLOOD, URINE BLOOD NEGATIVE (NEGATIVE); COLOR, URINE YELLOW (YELLOW); GLUCOSE, URINE (UA) AUTO NEGATIVE (NEGATIVE); KETONE, URINE AUTO NEGATIVE (NEGATIVE); LEUKOCYTE ESTERASE, URINE AUTO NEGATIVE (NEGATIVE); MUCUS, URINE SMALL (NEGATIVE); NITRITE, URINE AUTO NEGATIVE (NEGATIVE); PROTEIN, URINE AUTO NEGATIVE (NEGATIVE); RBC, URINE AUTO 0 /HPF (0-3); SPECIFIC GRAVITY URINE AUTO 1.029 (1.002-1.035); SQUAMOUS EPITHELIAL CELL UR AU 0 /HPF (0-6); UROBILINOGEN, URINE AUTO 0.2 mg/dL (0.0-2.0); WBC, URINE AUTO 2 /HPF (0-3)
[2024-04-03] MEDS ORDERED: ACETAMINOPHEN TAB 650MG DOSE (2X325MG) PO PRN (15:10)
[2024-04-03] MEDS ORDERED: DEXTROSE 50% 50ML SYRINGE IV PRN (15:20)
[2024-04-03] MEDS ORDERED: GLUCAGON INJ 1MG VIAL SC PRN (15:20)
[2024-04-03] MEDS ORDERED: GLUCOSE 4 GM CHEW PO PRN (15:20)
[2024-04-03 17:47] VITALS: BP 93/63; TEMP 97.7; O2SAT 97
[2024-04-03] MEDS ORDERED: oxyCODONE 5MG TAB PO PRN (17:55)
[2024-04-03] MEDS: INSULIN LISPRO (NovoLOG) PER UNIT SC SCH ×2 (18:19→21:00)
[2024-04-03] MEDS: NS 1,000 ML IV SCH (18:19)
[2024-04-03 19:43] VITALS: BP 99/61; TEMP 97.5; O2SAT 98
[2024-04-03] MEDS: HEPARIN SOD (PORCINE) 5000UNITS/ML 1ML VIAL/SYRINGE SC SCH (21:14)
[2024-04-03] MEDS: LEVEMIR (INSULIN DETEMIR) 1 UNITS/0.01ML SC SCH (21:14)
[2024-04-03] MEDS: LIDOCAINE 5% (LIDODERM) PATCH TD SCH (21:15)
[2024-04-03] MEDS: KETOROLAC 30 MG/ML 1ML VIAL IV PRN (21:16)
[2024-04-03 21:20] LABS: HEMATOCRIT 25.8 % (42.0-52.0); HEMOGLOBIN 7.9 g/dl (13.5-17.5)
[2024-04-03] MEDS: HYDROCORTISONE 100MG/2ML VIAL IV ONE (22:10)
[2024-04-03 23:03] VITALS: BP 109/59; TEMP 98; O2SAT 95
[2024-04-04] VITALS (13 sets, daily range): BP systolic 87–115; BP diastolic 53–67; TEMP 97.1–99.2; O2SAT 93–97
[2024-04-04] MEDS: oxyCODONE 5MG TAB PO PRN (06:29)
[2024-04-04 06:37] LABS: HEMATOCRIT 25.9 % (42.0-52.0); HEMOGLOBIN 7.8 g/dl (13.5-17.5); MEAN CORPUSCULAR HEMOGLOBIN 25.7 pg (27.0-33.0); MEAN CORPUSCULAR HGB CONC 30.1 g/dl (32.0-36.5); MEAN CORPUSCULAR VOLUME 85.2 fl (80.0-96.0); PLATELET COUNT, AUTOMATED 394 10^3/uL (150-450); RED BLOOD COUNT 3.04 10^6/uL (4.30-6.10); WHITE BLOOD COUNT 6.2 10^3/uL (4.0-10.0)
[2024-04-04 07:12] LABS: BLOOD UREA NITROGEN 13 MG/DL (9-23); CALCIUM LEVEL 8.7 MG/DL (8.3-10.6); CARBON DIOXIDE LEVEL 25 MMOL/L (20-31); CHLORIDE LEVEL 107 MMOL/L (98-107); CREATININE FOR GFR 0.44 MG/DL (0.70-1.30); GLOMERULAR FILTRATION RATE > 60.0 (>49); GLUCOSE, FASTING 147 MG/DL (74-106); IRON (FE) 17 UG/DL (65-175); PERCENT SATURATION 9.4 % (19.7-50.0); POTASSIUM SERUM 3.7 MMOL/L (3.5-5.1); SODIUM LEVEL 138 MMOL/L (136-145); TOTAL IRON BINDING CAPACITY 181 UG/DL (250-425)
[2024-04-04 07:14] LABS: FERRITIN 1529.2 NG/ML (10.5-307.3); VITAMIN B12 LEVEL 363 PG/ML (211-911)
[2024-04-04 07:53] LABS: FOLATE 7.37 NG/ML (>5.4)
[2024-04-04] MEDS: NICOTINE 14 MG/24 HR TRANSDERMAL TOP SCH (09:05)
[2024-04-04] MEDS: MIDODRINE 5 MG TAB PO SCH (09:05)
[2024-04-05 00:46] LABS: HEMATOCRIT 27.8 % (42.0-52.0); HEMOGLOBIN 8.4 g/dl (13.5-17.5)
[2024-04-05 03:22] VITALS: BP 99/65; TEMP 98; O2SAT 92
[2024-04-05 05:51] LABS: HEMATOCRIT 26.7 % (42.0-52.0); HEMOGLOBIN 8.2 g/dl (13.5-17.5)
[2024-04-05 08:07] VITALS: BP 116/64; TEMP 97.8; O2SAT 93
[2024-04-05 11:43] VITALS: BP 121/67; TEMP 97.3; O2SAT 93
[2024-04-05 12:21] LABS: HEMOGLOBIN 8.5 g/dl (13.5-17.5)
[2024-04-05] MEDS ORDERED: MIDO5TA PO (14:29)
[2024-04-05] MEDS ORDERED: FERR325T3 PO (14:31)
== END 2024-04-05 16:54 | disposition home health service (06) | DRG 207 ==
LOC: M ED 10:58 → M ED INP 15:37 → OBSVTOIN 15:37 → M PCU 17:36
PROVIDERS: ADMIT Student in an Organized Health Care Education/Training Program; ATTEND Student in an Organized Health Care Education/Training Program
DX: I95.9 Hypotension, unspecified (principal); C79.51 Secondary malignant neoplasm of bone; C34.11 Malignant neoplasm of upper lobe, right bronchus or lung; E11.9 Type 2 diabetes mellitus without complications; I10 Essential (primary) hypertension; D64.9 Anemia, unspecified; F17.200 Nicotine dependence, unspecified, uncomplicated; F14.90 Cocaine use, unspecified, uncomplicated

== ENCOUNTER → 2024-04-17 | Outpatient (CLI) | payer OTHER ==
[~2024-04-17] VITALS: Ht 175.3 cm; Wt 64.1 kg
[~2024-04-17] MED LIST changes: +FERR325T3 PO; +IBUP1TAB7 PO; +INSU100I48 SQ; +LIDOCAINE 1% MDV 20ML VIAL As Ordered ONE; +LIDOCAINE W/EPINEPHRINE 1% 20ML VIAL As Ordered ONE; +MIDAZOLAM INJ 2MG/2ML VIAL As Ordered ONE; +MIDO5TA PO; +NICO14DI6 TOP; +ceFAZolin 2 GM/D5W 50 ML IV BAG As Ordered ONE; +fentaNYL 100 MCG/2 ML INJECTION As Ordered ONE
[2024-04-17 08:10] VITALS: TEMP 97.5
[2024-04-17] MEDS: NS 1,000 ML IV SCH (10:02)
[2024-04-17] MEDS: ceFAZolin SOD 2 GM in IV 1 EA IV ONE (10:02)
[2024-04-17 12:05] VITALS: BP 116/72; O2SAT 99
== END ==
LOC: M IRPRO 08:01
PROVIDERS: ATTEND Specialist
DX: C34.90 Malignant neoplasm of unspecified part of unspecified bronchus or lung (principal)
CPT/HCPCS: 36561; 99152; 99153; C1769; J0690; J2250; J3010

== ENCOUNTER → 2024-04-22 | Outpatient (CLI) | payer OTHER ==
[~2024-04-22] MED LIST changes: -LIDOCAINE 1% MDV 20ML VIAL As Ordered ONE; -LIDOCAINE W/EPINEPHRINE 1% 20ML VIAL As Ordered ONE; -MIDAZOLAM INJ 2MG/2ML VIAL As Ordered ONE; +PROHANCE 279.3MG/ML 15ML VIAL As Ordered ONE; -ceFAZolin 2 GM/D5W 50 ML IV BAG As Ordered ONE; -fentaNYL 100 MCG/2 ML INJECTION As Ordered ONE
== END ==
LOC: M RAD 12:22
PROVIDERS: ATTEND General Practice
DX: C34.90 Malignant neoplasm of unspecified part of unspecified bronchus or lung (principal)
CPT/HCPCS: 70553; A9576

== ENCOUNTER → 2024-04-28 | Outpatient (CLI) | payer OTHER ==
[~2024-04-28] VITALS: Ht 175.3 cm; Wt 61.4 kg
[~2024-04-28] MED LIST changes: +GABA-1171 PO; +HYDR-4514 PO; -PROHANCE 279.3MG/ML 15ML VIAL As Ordered ONE; +SENN-186 PO
[2024-04-28 10:09] VITALS: BP 90/61; O2SAT 99
== END ==
LOC: M PAL 09:56
PROVIDERS: ATTEND Nurse Practitioner Adult Health
DX: G89.3 Neoplasm related pain (acute) (chronic) (principal); C34.11 Malignant neoplasm of upper lobe, right bronchus or lung; F14.90 Cocaine use, unspecified, uncomplicated; K59.00 Constipation, unspecified; I95.9 Hypotension, unspecified; R41.89 Other symptoms and signs involving cognitive functions and awareness; F17.210 Nicotine dependence, cigarettes, uncomplicated; Z79.891 Long term (current) use of opiate analgesic; Z66 Do not resuscitate; Z51.5 Encounter for palliative care; Z59.82 Transportation insecurity; Z79.4 Long term (current) use of insulin; Z79.84 Long term (current) use of oral hypoglycemic drugs; Z79.899 Other long term (current) drug therapy

== ENCOUNTER → 2024-05-04 | Outpatient (CLI) | payer OTHER ==
[~2024-05-04] MED LIST changes: +ONDA-84 PO
== END ==
LOC: M PLARAD 14:32
PROVIDERS: ATTEND Family Medicine Addiction Medicine
DX: R19.09 Other intra-abdominal and pelvic swelling, mass and lump (principal); C34.91 Malignant neoplasm of unspecified part of right bronchus or lung
CPT/HCPCS: 78815; A9552

== ENCOUNTER 2024-05-15 12:43 | Outpatient (RCR) | payer OTHER | END 2024-05-17 | LOC: M ONCR 12:43 | PROVIDERS: ATTEND General Practice | DX: Z51.0 Encounter for antineoplastic radiation therapy (principal); C34.11 Malignant neoplasm of upper lobe, right bronchus or lung ==

== ENCOUNTER 2024-06-16 12:33 | Outpatient (RCR) | payer OTHER ==
[~2024-06-16 12:33] MED LIST changes: +ACET-897 PO; +HYDR-3716 PO; +LOPE2CAP PO; +OXYC10TA12 PO
[2024-06-17] MEDS ORDERED: GABA-1171 PO (16:31)
== END 2024-06-17 ==
LOC: M ONCR 12:33
PROVIDERS: ATTEND General Practice
DX: Z51.0 Encounter for antineoplastic radiation therapy (principal); C34.11 Malignant neoplasm of upper lobe, right bronchus or lung

== ENCOUNTER → 2024-06-17 | Outpatient (CLI) | payer OTHER, MEDICAID ==
[~2024-06-17] VITALS: Ht 175.3 cm; Wt 61.7 kg
[~2024-06-17] MED LIST changes: +GABA-282 PO; +LEVO100C PO; +MAGN400T2 PO
[2024-06-17 13:04] VITALS: BP 118/80; O2SAT 100
== END ==
LOC: M PAL 12:52
PROVIDERS: ATTEND Nurse Practitioner Adult Health
DX: G89.3 Neoplasm related pain (acute) (chronic) (principal); C34.11 Malignant neoplasm of upper lobe, right bronchus or lung; K59.00 Constipation, unspecified; I95.9 Hypotension, unspecified; R41.89 Other symptoms and signs involving cognitive functions and awareness; F17.210 Nicotine dependence, cigarettes, uncomplicated; Z66 Do not resuscitate; Z51.5 Encounter for palliative care; Z59.82 Transportation insecurity; Z79.4 Long term (current) use of insulin; Z79.84 Long term (current) use of oral hypoglycemic drugs; Z79.891 Long term (current) use of opiate analgesic; Z79.899 Other long term (current) drug therapy; Z92.21 Personal history of antineoplastic chemotherapy; Z92.3 Personal history of irradiation

== ENCOUNTER → 2024-07-30 | Outpatient (CLI) | payer MEDICAID, OTHER ==
[~2024-07-30] VITALS: Ht 175.3 cm; Wt 63.0 kg
[2024-07-30 13:06] VITALS: BP 107/72; O2SAT 100
== END ==
LOC: M PAL 12:44
PROVIDERS: ATTEND Nurse Practitioner Adult Health
DX: G89.3 Neoplasm related pain (acute) (chronic) (principal); C34.11 Malignant neoplasm of upper lobe, right bronchus or lung; K59.00 Constipation, unspecified; I95.9 Hypotension, unspecified; R41.89 Other symptoms and signs involving cognitive functions and awareness; F17.210 Nicotine dependence, cigarettes, uncomplicated; Z66 Do not resuscitate; Z51.5 Encounter for palliative care; Z59.82 Transportation insecurity; Z79.4 Long term (current) use of insulin; Z79.84 Long term (current) use of oral hypoglycemic drugs; Z79.891 Long term (current) use of opiate analgesic; Z79.899 Other long term (current) drug therapy; Z92.21 Personal history of antineoplastic chemotherapy; Z92.3 Personal history of irradiation; Z79.890 Hormone replacement therapy

== ENCOUNTER → 2024-08-12 | Outpatient (CLI) | payer MEDICAID, OTHER ==
[~2024-08-12] MED LIST changes: +ISOVUE-370 76% 100ML VIAL As Ordered ONE
== END ==
LOC: M RAD 14:40
PROVIDERS: ATTEND Specialist
DX: C34.90 Malignant neoplasm of unspecified part of unspecified bronchus or lung (principal)
CPT/HCPCS: 71260; Q9967

== ENCOUNTER → 2024-09-29 | Outpatient (CLI) | payer OTHER ==
[~2024-09-29] VITALS: Ht 175.3 cm; Wt 66.5 kg
[~2024-09-29] MED LIST changes: +GABA-1172 PO; -GABA-282 PO; +HYDR-4517 PO; -ISOVUE-370 76% 100ML VIAL As Ordered ONE; +MAGN400T35; +NEUR300C PO; +SENN1TAB96
[2024-09-29 13:14] VITALS: BP 136/90; O2SAT 98
== END ==
LOC: M PAL 12:34
PROVIDERS: ATTEND Nurse Practitioner Adult Health
DX: G89.3 Neoplasm related pain (acute) (chronic) (principal); C34.11 Malignant neoplasm of upper lobe, right bronchus or lung; K59.00 Constipation, unspecified; R41.89 Other symptoms and signs involving cognitive functions and awareness; F17.210 Nicotine dependence, cigarettes, uncomplicated; Z66 Do not resuscitate; Z51.5 Encounter for palliative care; Z59.82 Transportation insecurity; Z79.620 Long term (current) use of immunosuppressive biologic; Z79.84 Long term (current) use of oral hypoglycemic drugs; Z79.890 Hormone replacement therapy; Z79.891 Long term (current) use of opiate analgesic; Z79.899 Other long term (current) drug therapy; Z92.21 Personal history of antineoplastic chemotherapy; Z92.3 Personal history of irradiation

== ENCOUNTER → 2024-11-06 | Outpatient (REF) | payer OTHER ==
[2024-11-06 12:56] LABS: ALBUMIN 3.1 G/DL (3.2-5.2); ALKALINE PHOSPHATASE 91 U/L (40-129); ALT/SGPT 10 U/L (7.0-40); AST/SGOT < 8 U/L (<34); BILIRUBIN,TOTAL 0.3 MG/DL (0.3-1.2); BLOOD UREA NITROGEN 13 MG/DL (9-23); CALCIUM LEVEL 9.5 MG/DL (8.3-10.6); CARBON DIOXIDE LEVEL 33 MMOL/L (20-31); CHLORIDE LEVEL 103 MMOL/L (98-107); CHOLESTEROL LEVEL 132 MG/DL (<200); CHOLESTEROL RISK RATIO 3.75 (<5); CREATININE FOR GFR 0.55 MG/DL (0.70-1.30); GLOMERULAR FILTRATION RATE > 60.0 (>49); GLUCOSE, FASTING 119 MG/DL (74-106); HDL CHOLESTEROL 35.2 MG/DL (>40); LDL CHOLESTEROL 76.8 MG/DL (<100); MAGNESIUM LEVEL 1.9 MG/DL (1.8-2.4); NON-HDL-C 96.8 MG/DL; POTASSIUM SERUM 4.9 MMOL/L (3.5-5.1); SODIUM LEVEL 142 MMOL/L (136-145); TOTAL PROTEIN 7.3 G/DL (5.7-8.2); TRIGLYCERIDES LEVEL 100 MG/DL (<150)
[2024-11-06 12:58] LABS: THYROID STIMULATING HORMONE 3.752 uIU/ML (0.55-4.78)
[2024-11-06 13:15] LABS: HEMOGLOBIN A1c 5.6 % (4.0-6.0)
== END ==
LOC: M LAB REF 12:16
PROVIDERS: ATTEND Family Medicine Addiction Medicine
DX: E11.9 Type 2 diabetes mellitus without complications (principal); E83.42 Hypomagnesemia

== ENCOUNTER → 2024-11-19 | Outpatient (CLI) | payer OTHER ==
[~2024-11-19] MED LIST changes: +COLA100C5 PO
== END ==
LOC: M PAL 14:41
PROVIDERS: ATTEND Family Medicine
DX: Z51.5 Encounter for palliative care (principal); G89.3 Neoplasm related pain (acute) (chronic); C34.11 Malignant neoplasm of upper lobe, right bronchus or lung; K59.00 Constipation, unspecified; Z66 Do not resuscitate; Z92.21 Personal history of antineoplastic chemotherapy; Z92.3 Personal history of irradiation; Z92.29 Personal history of other drug therapy; Z79.1 Long term (current) use of non-steroidal anti-inflammatories (NSAID); Z79.890 Hormone replacement therapy; Z79.84 Long term (current) use of oral hypoglycemic drugs; Z79.891 Long term (current) use of opiate analgesic; Z79.899 Other long term (current) drug therapy

== ENCOUNTER → 2024-11-24 | Outpatient (CLI) | payer OTHER ==
[~2024-11-24] MED LIST changes: +ELIQ5TAB PO
== END ==
LOC: M WHC 10:13
PROVIDERS: ATTEND Specialist
DX: I82.711 Chronic embolism and thrombosis of superficial veins of right upper extremity (principal)

== ENCOUNTER → 2024-11-24 | Outpatient (CLI) | payer OTHER ==
[~2024-11-24] MED LIST changes: +ISOVUE-370 76% 100ML VIAL ONE
== END ==
LOC: M PLAIMG 08:41
PROVIDERS: ATTEND Nurse Practitioner Women's Health
DX: C34.11 Malignant neoplasm of upper lobe, right bronchus or lung (principal); R91.8 Other nonspecific abnormal finding of lung field; J90 Pleural effusion, not elsewhere classified; R59.0 Localized enlarged lymph nodes; I87.1 Compression of vein

== ENCOUNTER → 2024-12-17 | Outpatient (CLI) | payer OTHER ==
[~2024-12-17] MED LIST changes: -ISOVUE-370 76% 100ML VIAL ONE; +MIRA3350 PO; +MORP-69 PO; +OMEGCAP4 PO; +OXYC-141 PO; +med rec comment
== END ==
LOC: M ONCR 13:25
PROVIDERS: ATTEND General Practice
DX: C34.11 Malignant neoplasm of upper lobe, right bronchus or lung (principal); I87.1 Compression of vein; I82.B11 Acute embolism and thrombosis of right subclavian vein; M79.89 Other specified soft tissue disorders; F17.218 Nicotine dependence, cigarettes, with other nicotine-induced disorders; Z92.21 Personal history of antineoplastic chemotherapy; Z92.3 Personal history of irradiation; Z79.01 Long term (current) use of anticoagulants; Z79.890 Hormone replacement therapy; Z79.899 Other long term (current) drug therapy

== ENCOUNTER → 2024-12-18 | Outpatient (RCR) | payer OTHER | LOC: M ONCR 12-17 13:50 | PROVIDERS: ATTEND General Practice | DX: Z51.0 Encounter for antineoplastic radiation therapy (principal); C34.11 Malignant neoplasm of upper lobe, right bronchus or lung ==

== ENCOUNTER 2024-12-21 14:46 | Inpatient (IN) | payer OTHER ==
[~2024-12-21] VITALS: Ht 172.7 cm; Wt 70.3 kg
[~2024-12-21 14:46] MED LIST changes: -OMEGCAP4 PO; -med rec comment
[2024-12-21 15:32] LABS: VENOUS HCO3 34.9 MMOL/L (23.0-27.0); VENOUS PARTIAL PRESSURE CO2 74.5 mmHg (38.0-50.0); VENOUS PARTIAL PRESSURE O2 28.4 mmHg (30.0-50.0); VENOUS PH 7.289 UNITS (7.330-7.430); VENOUS STANDARD HCO3 28.9 MMOL/L; VENOUS TOTAL CO2 37.2 MMOL/L (24.0-28.0)
[2024-12-21 15:43] LABS: BASO % 0.3 % (0.0-1.0); EOS % 0.3 % (0.0-3.0); HEMATOCRIT 36.6 % (42.0-52.0); HEMOGLOBIN 11.3 g/dl (13.5-17.5); LYMPH # 0.4 10^3/uL (1.5-5.0); LYMPH % 5.7 % (24.0-44.0); MEAN CORPUSCULAR HEMOGLOBIN 30.1 pg (27.0-33.0); MEAN CORPUSCULAR HGB CONC 30.9 g/dl (32.0-36.5); MEAN CORPUSCULAR VOLUME 97.3 fl (80.0-96.0); MONO # 0.7 10^3/uL (0.0-0.8); MONO % 11.3 % (2.0-8.0); NEUTROPHILS # 5.2 10^3/uL (1.5-8.5); NEUTROPHILS % 82.1 % (36.0-66.0); PLATELET COUNT, AUTOMATED 284 10^3/uL (150-450); RED BLOOD COUNT 3.76 10^6/uL (4.30-6.10); WHITE BLOOD COUNT 6.4 10^3/uL (4.0-10.0)
[2024-12-21 16:08] LABS: CK-MB VALUE MASS 3.6 NG/ML (<3.6)
[2024-12-21 16:09] LABS: ALBUMIN 2.7 G/DL (3.2-5.2); ALKALINE PHOSPHATASE 84 U/L (40-129); ALT/SGPT 21 U/L (7.0-40); AST/SGOT 23 U/L (<34); BILIRUBIN,DIRECT 0.1 MG/DL (<0.4); BILIRUBIN,TOTAL 0.3 MG/DL (0.3-1.2); CPK CREATINE PHOSPHOKINASE 312 U/L (46-171); MB/CK RELATIVE INDEX 1.15 (< OR =4); TOTAL PROTEIN 6.9 G/DL (5.7-8.2)
[2024-12-21 16:11] LABS: THYROID STIMULATING HORMONE 4.112 uIU/ML (0.55-4.78); THYROXINE (T4) 7.7 UG/DL (4.5-10.9)
[2024-12-21 17:33] LABS: BLOOD UREA NITROGEN 24 MG/DL (9-23); CALCIUM LEVEL 8.5 MG/DL (8.3-10.6); CARBON DIOXIDE LEVEL 32 MMOL/L (20-31); CHLORIDE LEVEL 97 MMOL/L (98-107); CREATININE FOR GFR 0.82 MG/DL (0.70-1.30); GLOMERULAR FILTRATION RATE > 60.0 (>49); GLUCOSE, FASTING 143 MG/DL (74-106); POTASSIUM SERUM 4.3 MMOL/L (3.5-5.1); SODIUM LEVEL 137 MMOL/L (136-145)
[2024-12-21 18:24] LABS: ABG BASE EXCESS 5.4 (-2.0-2.0); ABG HCO3 33.2 MMOL/L (22.0-26.0); ABG O2 SATURATION 93.7 % (95.0-99.0); ABG PARTIAL PRESSURE O2 69.7 mmHg (75.0-100.0); ABG STANDARD HCO3 29.3 MMOL/L. (22.0-26.0); ABG TOTAL CO2 35.3 MMOL/L (23.0-31.0); ABG pH (ARTERIAL) 7.322 UNITS (7.350-7.450)
[2024-12-21 18:29] LABS: ABG PARTIAL PRESSURE CO2 65.7 mmHg (35.0-45.0)
[2024-12-21] MEDS: IPRATROPIUM 0.5MG/ALBUTEROL 2.5MG INH SOL UD 3ML (DUONEB) NEB ONE (18:45)
[2024-12-21 18:51] LABS: AMPHETAMINES LEVEL URINE NEGATIVE (NEGATIVE); BARBITURATES URINE NEGATIVE (NEGATIVE); BENZODIAZEPINES URINE NEGATIVE (NEGATIVE); METHADONE URINE NEGATIVE (NEGATIVE); PHENCYCLIDINE URINE NEGATIVE (NEGATIVE)
[2024-12-21 18:59] LABS: CANNABINOIDS URINE POSITIVE (NEGATIVE); COCAINE METABOLITE URINE POSITIVE (NEGATIVE); OPIATES URINE POSITIVE (NEGATIVE)
[2024-12-21 19:07] LABS: BLOOD UREA NITROGEN 22 MG/DL (9-23); CALCIUM LEVEL 8.7 MG/DL (8.3-10.6); CARBON DIOXIDE LEVEL 35 MMOL/L (20-31); CHLORIDE LEVEL 100 MMOL/L (98-107); CREATININE FOR GFR 0.72 MG/DL (0.70-1.30); GLOMERULAR FILTRATION RATE > 60.0 (>49); GLUCOSE, FASTING 104 MG/DL (74-106); POTASSIUM SERUM 4.5 MMOL/L (3.5-5.1); SODIUM LEVEL 138 MMOL/L (136-145)
[2024-12-21] MEDS: methylPREDNISolone 125MG 2ML VIAL IV ONE (19:23)
[2024-12-21] MEDS: IPRATROPIUM 0.5MG/ALBUTEROL 2.5MG INH SOL UD 3ML (DUONEB) NEB SCH (19:28)
[2024-12-21] MEDS ORDERED: OMEGCAP4 PO (20:43)
[2024-12-21] MEDS ORDERED: med rec comment (20:51)
[2024-12-21] MEDS ORDERED: HOME MED LIST COMPLETE! XX SCH (20:55)
[2024-12-21] MEDS ORDERED: MOM 30ML SUSPENSION UDC PO PRN (21:45)
[2024-12-21] MEDS ORDERED: GLUCAGON INJ 1MG VIAL SC PRN (21:45)
[2024-12-21] MEDS ORDERED: GLUCOSE 4 GM CHEW PO PRN (21:45)
[2024-12-21] MEDS ORDERED: DEXTROSE 50% 50ML SYRINGE IV PRN (21:45)
[2024-12-21] MEDS: DOCUSATE SODIUM 100MG CAPSULE PO SCH (22:43)
[2024-12-21] MEDS: GABAPENTIN 300 MG CAP PO SCH (22:43)
[2024-12-21] MEDS: INSULIN LISPRO (NovoLOG) PER UNIT SC SCH (23:04)
[2024-12-21] MEDS: UNRESOLVED CLARIFICATION ENTRY XX STA (23:32)
[2024-12-22] MEDS: PIPERACILLIN/TAZOBACTAM SOD 4.5 GM in DEXTROSE 5% (D5W) ADV/MINI-BAG 50 ML IV SCH (01:09)
[2024-12-22] MEDS: IPRATROPIUM 0.5MG/ALBUTEROL 2.5MG INH SOL UD 3ML (DUONEB) NEB SCH (01:24)
[2024-12-22] MEDS: VANCOMYCIN HCL 2,000 MG, VIAL MATE ADAPTER 1 EACH in NS 500 ML IV ONE (01:55)
[2024-12-22] MEDS: methylPREDNISolone 40MG 1ML VIAL IV SCH (02:07)
[2024-12-22 07:36] LABS: HEMATOCRIT 41.5 % (42.0-52.0); HEMOGLOBIN 12.3 g/dl (13.5-17.5); MEAN CORPUSCULAR HEMOGLOBIN 29.6 pg (27.0-33.0); MEAN CORPUSCULAR HGB CONC 29.6 g/dl (32.0-36.5); PLATELET COUNT, AUTOMATED 286 10^3/uL (150-450); RED BLOOD COUNT 4.15 10^6/uL (4.30-6.10)
[2024-12-22] MEDS ORDERED: ISOVUE-370 76% 100ML VIAL As Ordered ONE (07:42)
[2024-12-22] MEDS: SYMBICORT 160/4.5MCG INHALER 6GM INH SCH (08:18)
[2024-12-22 08:20] LABS: PROCALCITONIN 0.08 ng/ml
[2024-12-22 08:21] LABS: ALBUMIN 2.7 G/DL (3.2-5.2); ALKALINE PHOSPHATASE 92 U/L (40-129); ALT/SGPT 18 U/L (7.0-40); AST/SGOT 20 U/L (<34); BILIRUBIN,TOTAL 0.3 MG/DL (0.3-1.2); BLOOD UREA NITROGEN 16 MG/DL (9-23); CALCIUM LEVEL 8.8 MG/DL (8.3-10.6); CARBON DIOXIDE LEVEL 34 MMOL/L (20-31); CHLORIDE LEVEL 98 MMOL/L (98-107); CREATININE FOR GFR 0.56 MG/DL (0.70-1.30); GLOMERULAR FILTRATION RATE > 60.0 (>49); GLUCOSE, FASTING 210 MG/DL (74-106); POTASSIUM SERUM 4.8 MMOL/L (3.5-5.1); SODIUM LEVEL 139 MMOL/L (136-145); TOTAL PROTEIN 7.3 G/DL (5.7-8.2)
[2024-12-22] MEDS: INSULIN LISPRO (NovoLOG) PER UNIT SC SCH (08:36)
[2024-12-22] MEDS: PANTOPRAZOLE 40MG VIAL IV SCH (08:37)
[2024-12-22] MEDS: APIXABAN 5 MG TAB (ELIQUIS) PO SCH (08:37)
[2024-12-22 08:42] LABS: ABG BASE EXCESS 2.8 (-2.0-2.0); ABG HCO3 32.1 MMOL/L (22.0-26.0); ABG O2 SATURATION 89.8 % (95.0-99.0); ABG PARTIAL PRESSURE O2 62.9 mmHg (75.0-100.0); ABG STANDARD HCO3 26.8 MMOL/L. (22.0-26.0); ABG TOTAL CO2 34.4 MMOL/L (23.0-31.0)
[2024-12-22 08:45] LABS: ABG pH (ARTERIAL) 7.248 UNITS (7.350-7.450)
[2024-12-22 08:46] LABS: ABG PARTIAL PRESSURE CO2 75.3 mmHg (35.0-45.0)
[2024-12-22] MEDS: AZITHROMYCIN 250MG TABLET PO SCH (10:34)
[2024-12-22] MEDS: VANCOMYCIN HCL 1,000 MG, VIAL MATE ADAPTER 1 EACH in NS 250 ML IV SCH (10:34)
[2024-12-22] MEDS: ENOXAPARIN 80MG/0.8ML SYRINGE (J1650 PER 10MG) SC SCH (11:35)
[2024-12-22 11:49] VITALS: O2SAT 90
[2024-12-22 15:31] LABS: ABG BASE EXCESS 3.1 (-2.0-2.0); ABG HCO3 30.7 MMOL/L (22.0-26.0); ABG O2 SATURATION 90.5 % (95.0-99.0); ABG PARTIAL PRESSURE O2 59.5 mmHg (75.0-100.0); ABG TOTAL CO2 32.5 MMOL/L (23.0-31.0); ABG pH (ARTERIAL) 7.319 UNITS (7.350-7.450)
[2024-12-22] MEDS: ALBUTEROL SULFATE 2.5MG/0.5ML INH NEB SOLN NEB PRN (15:37)
[2024-12-22 18:24] LABS: VENOUS BASE EXCESS 7.6 (-2.0-2.0); VENOUS HCO3 36.4 MMOL/L (23.0-27.0); VENOUS O2 SATURATION 76.4 % (60.0-80.0); VENOUS PARTIAL PRESSURE CO2 75.4 mmHg (38.0-50.0); VENOUS PARTIAL PRESSURE O2 42.5 mmHg (30.0-50.0); VENOUS PH 7.302 UNITS (7.330-7.430); VENOUS STANDARD HCO3 30.9 MMOL/L; VENOUS TOTAL CO2 38.7 MMOL/L (24.0-28.0)
[2024-12-22] MEDS: FORMOTEROL FUMARATE 20 MCG/2 ML INHALATION SOLUTION (PERFOROMIST) INH SCH (19:25)
[2024-12-22] MEDS: BUDESONIDE 0.5 MG/2 ML INHALATION SUSPENSION NEB SCH (19:26)
[2024-12-22 21:50] VITALS: BP 125/70; TEMP 98.6; O2SAT 92
[2024-12-23] VITALS (41 sets, daily range): BP systolic 101–125; BP diastolic 55–89; TEMP 97.9–99.1; O2SAT 83–98
[2024-12-23] MEDS: oxyCODONE 5MG TAB PO ONE
[2024-12-23 06:17] LABS: BASO % 0.1 % (0.0-1.0); EOS # 0.1 10^3/uL (0.0-0.5); EOS % 0.5 % (0.0-3.0); HEMATOCRIT 38.6 % (42.0-52.0); HEMOGLOBIN 11.5 g/dl (13.5-17.5); LYMPH # 0.1 10^3/uL (1.5-5.0); LYMPH % 0.7 % (24.0-44.0); MEAN CORPUSCULAR HEMOGLOBIN 29.7 pg (27.0-33.0); MEAN CORPUSCULAR HGB CONC 29.8 g/dl (32.0-36.5); MEAN CORPUSCULAR VOLUME 99.7 fl (80.0-96.0); MONO # 0.6 10^3/uL (0.0-0.8); NEUTROPHILS # 11.6 10^3/uL (1.5-8.5); NEUTROPHILS % 93.3 % (36.0-66.0); PLATELET COUNT, AUTOMATED 252 10^3/uL (150-450); RED BLOOD COUNT 3.87 10^6/uL (4.30-6.10); WHITE BLOOD COUNT 12.4 10^3/uL (4.0-10.0)
[2024-12-23] MEDS: LEVOTHYROXINE 100MCG TABLET (0.1MG) PO SCH (06:20)
[2024-12-23 06:39] LABS: BLOOD UREA NITROGEN 16 MG/DL (9-23); CALCIUM LEVEL 8.9 MG/DL (8.3-10.6); CARBON DIOXIDE LEVEL 37 MMOL/L (20-31); CHLORIDE LEVEL 98 MMOL/L (98-107); CREATININE FOR GFR 0.61 MG/DL (0.70-1.30); GLOMERULAR FILTRATION RATE > 60.0 (>49); GLUCOSE, FASTING 147 MG/DL (74-106); POTASSIUM SERUM 4.6 MMOL/L (3.5-5.1); SODIUM LEVEL 141 MMOL/L (136-145)
[2024-12-23] MEDS: ACETAMINOPHEN 325 MG TAB PO PRN (12:27)
[2024-12-23] MEDS: LIDOCAINE 5% (LIDODERM) PATCH TD SCH (17:14)
[2024-12-23] MEDS: MORPHINE 2 MG/ML 1ML VIAL IV ONE (17:14)
[2024-12-23] MEDS: LEVALBUTEROL 1.25MG 0.5ML CONCENTRATE NEB INH SCH (19:48)
[2024-12-23] MEDS: IPRATROPIUM 0.02% SOLN 0.5MG 2.5ML NEB INH SCH (19:48)
[2024-12-24] VITALS (38 sets, daily range): BP systolic 110–143; BP diastolic 62–78; TEMP 97.4–99; O2SAT 79–98
[2024-12-24 06:15] LABS: BASO % 0.1 % (0.0-1.0); EOS % 0.1 % (0.0-3.0); HEMATOCRIT 38.5 % (42.0-52.0); HEMOGLOBIN 11.4 g/dl (13.5-17.5); LYMPH # 0.1 10^3/uL (1.5-5.0); LYMPH % 1.4 % (24.0-44.0); MEAN CORPUSCULAR HEMOGLOBIN 29.3 pg (27.0-33.0); MEAN CORPUSCULAR HGB CONC 29.6 g/dl (32.0-36.5); MONO # 0.5 10^3/uL (0.0-0.8); MONO % 6.1 % (2.0-8.0); NEUTROPHILS # 7.7 10^3/uL (1.5-8.5); NEUTROPHILS % 91.8 % (36.0-66.0); PLATELET COUNT, AUTOMATED 238 10^3/uL (150-450); RED BLOOD COUNT 3.89 10^6/uL (4.30-6.10); WHITE BLOOD COUNT 8.4 10^3/uL (4.0-10.0)
[2024-12-24 06:53] LABS: BLOOD UREA NITROGEN 14 MG/DL (9-23); CARBON DIOXIDE LEVEL 35 MMOL/L (20-31); CHLORIDE LEVEL 100 MMOL/L (98-107); CREATININE FOR GFR 0.49 MG/DL (0.70-1.30); GLOMERULAR FILTRATION RATE > 60.0 (>49); GLUCOSE, FASTING 200 MG/DL (74-106); POTASSIUM SERUM 4.8 MMOL/L (3.5-5.1); SODIUM LEVEL 142 MMOL/L (136-145)
[2024-12-24] MEDS: oxyCODONE 10 MG CR TAB PO SCH (09:17)
[2024-12-24] MEDS: oxyCODONE 5MG TAB PO PRN (11:41)
[2024-12-25] VITALS (57 sets, daily range): BP systolic 104–134; BP diastolic 58–78; TEMP 97–98.5; O2SAT 79–100
[2024-12-25 14:20] LABS: PH BODY FLUID 7.505 UNITS (NOT ESTABLISHED); SOURCE, BODY FLUID pH PLEURAL
[2024-12-25] MEDS: FUROSEMIDE 40MG/4ML VIAL IV SCH (14:37)
[2024-12-25 14:44] LABS: HEMATOCRIT 40.8 % (42.0-52.0); HEMOGLOBIN 11.6 g/dl (13.5-17.5); MEAN CORPUSCULAR HEMOGLOBIN 28.5 pg (27.0-33.0); MEAN CORPUSCULAR HGB CONC 28.4 g/dl (32.0-36.5); MEAN CORPUSCULAR VOLUME 100.2 fl (80.0-96.0); PLATELET COUNT, AUTOMATED 223 10^3/uL (150-450); RED BLOOD COUNT 4.07 10^6/uL (4.30-6.10); WHITE BLOOD COUNT 7.8 10^3/uL (4.0-10.0)
[2024-12-25 14:48] LABS: SOURCE, BODY FLUID ALBUMIN PLEURAL
[2024-12-25 14:52] LABS: APPEARANCE, BODY FLUID HAZY (CLEAR); PLEURAL FL COLOR PALE YELLOW (COLORLESS); SOURCE, BODY FLUID PLEURAL
[2024-12-25 14:54] LABS: SOURCE, BODY FLUID GLUCOSE PLEURAL; SOURCE, BODY FLUID TOT PROTEIN PLEURAL; SOURCE, BODY FLUID TRIG PLEURAL; TOTAL PROTEIN, BODY FLUID 3.7 G/DL (NOT ESTABLISHED); TRIGLYCERIDE, BODY FLUID 29 MG/DL (NOT ESTABLISHED)
[2024-12-25 14:55] LABS: AMYLASE, BODY FLUID < 20 U/L (NOT ESTABLISHED); LDH, BODY FLUID 118 U/L (NOT ESTABLISHED); SOURCE, BODY FLUID AMYLASE PLEURAL; SOURCE, BODY FLUID LDH PLEURAL
[2024-12-25 14:56] LABS: CHOLESTEROL, BODY FLUID 57 MG/DL (NOT ESTABLISHED); SOURCE, BODY FLUID CHOL PLEURAL
[2024-12-25 15:01] LABS: LDH LACTATE DEHYDROGENASE 227 U/L (120-246)
[2024-12-25 15:02] LABS: BLOOD UREA NITROGEN 14 MG/DL (9-23); CALCIUM LEVEL 9.2 MG/DL (8.3-10.6); CARBON DIOXIDE LEVEL > 40.0 MMOL/L (20-31); CHLORIDE LEVEL 97 MMOL/L (98-107); CREATININE FOR GFR 0.47 MG/DL (0.70-1.30); GLOMERULAR FILTRATION RATE > 60.0 (>49); GLUCOSE, FASTING 120 MG/DL (74-106); POTASSIUM SERUM 4.9 MMOL/L (3.5-5.1); SODIUM LEVEL 142 MMOL/L (136-145)
[2024-12-25] MEDS: APIXABAN 5 MG TAB (ELIQUIS) PO SCH (20:35)
[2024-12-26] VITALS (37 sets, daily range): BP systolic 119–133; BP diastolic 61–80; TEMP 97.6–98.8; O2SAT 85–95
[2024-12-26 06:07] LABS: HEMATOCRIT 39.8 % (42.0-52.0); HEMOGLOBIN 11.4 g/dl (13.5-17.5); MEAN CORPUSCULAR HEMOGLOBIN 28.5 pg (27.0-33.0); MEAN CORPUSCULAR HGB CONC 28.6 g/dl (32.0-36.5); MEAN CORPUSCULAR VOLUME 99.5 fl (80.0-96.0); PLATELET COUNT, AUTOMATED 213 10^3/uL (150-450); WHITE BLOOD COUNT 7.1 10^3/uL (4.0-10.0)
[2024-12-26 06:37] LABS: BLOOD UREA NITROGEN 16 MG/DL (9-23); CALCIUM LEVEL 8.2 MG/DL (8.3-10.6); CARBON DIOXIDE LEVEL > 40.0 MMOL/L (20-31); CHLORIDE LEVEL 92 MMOL/L (98-107); CREATININE FOR GFR 0.43 MG/DL (0.70-1.30); GLOMERULAR FILTRATION RATE > 60.0 (>49); GLUCOSE, FASTING 174 MG/DL (74-106); MAGNESIUM LEVEL 1.9 MG/DL (1.8-2.4); POTASSIUM SERUM 4.2 MMOL/L (3.5-5.1); SODIUM LEVEL 140 MMOL/L (136-145)
[2024-12-26 07:41] LABS: LDH LACTATE DEHYDROGENASE 229 U/L (120-246)
[2024-12-26 08:09] LABS: ALBUMIN 2.7 G/DL (3.2-5.2); ALKALINE PHOSPHATASE 70 U/L (40-129); ALT/SGPT 16 U/L (7.0-40); AST/SGOT 10 U/L (<34); BILIRUBIN,TOTAL 0.3 MG/DL (0.3-1.2); TOTAL PROTEIN 6.7 G/DL (5.7-8.2)
[2024-12-26] MEDS: TIOTROPIUM INHALER/CAPSULE (SPIRIVA) INH SCH (14:03)
[2024-12-26] MEDS ORDERED: PROHANCE 279.3MG/ML 15ML VIAL As Ordered ONE (16:26)
[2024-12-26] MEDS: SYMBICORT 160/4.5MCG INHALER 6GM INH SCH (20:46)
[2024-12-27] VITALS (41 sets, daily range): BP systolic 100–143; BP diastolic 62–83; TEMP 97.2–99.3; O2SAT 80–94
[2024-12-27] MEDS: LevoFLOXacin 750 MG TABLET PO SCH (05:06)
[2024-12-27 06:23] LABS: HEMATOCRIT 39.9 % (42.0-52.0); HEMOGLOBIN 11.8 g/dl (13.5-17.5); MEAN CORPUSCULAR HEMOGLOBIN 29.1 pg (27.0-33.0); MEAN CORPUSCULAR HGB CONC 29.6 g/dl (32.0-36.5); MEAN CORPUSCULAR VOLUME 98.3 fl (80.0-96.0); PLATELET COUNT, AUTOMATED 231 10^3/uL (150-450); RED BLOOD COUNT 4.06 10^6/uL (4.30-6.10); WHITE BLOOD COUNT 7.3 10^3/uL (4.0-10.0)
[2024-12-27 06:54] LABS: BLOOD UREA NITROGEN 16 MG/DL (9-23); CALCIUM LEVEL 8.8 MG/DL (8.3-10.6); CARBON DIOXIDE LEVEL > 40.0 MMOL/L (20-31); CHLORIDE LEVEL 94 MMOL/L (98-107); CREATININE FOR GFR 0.44 MG/DL (0.70-1.30); GLOMERULAR FILTRATION RATE > 60.0 (>49); GLUCOSE, FASTING 162 MG/DL (74-106); SODIUM LEVEL 140 MMOL/L (136-145)
[2024-12-28] VITALS (17 sets, daily range): BP systolic 102–132; BP diastolic 68–82; TEMP 97.5–99; O2SAT 91–100
[2024-12-28 07:38] LABS: HEMATOCRIT 42.5 % (42.0-52.0); HEMOGLOBIN 12.6 g/dl (13.5-17.5); MEAN CORPUSCULAR HGB CONC 29.6 g/dl (32.0-36.5); MEAN CORPUSCULAR VOLUME 97.7 fl (80.0-96.0); PLATELET COUNT, AUTOMATED 223 10^3/uL (150-450); RED BLOOD COUNT 4.35 10^6/uL (4.30-6.10); WHITE BLOOD COUNT 8.5 10^3/uL (4.0-10.0)
[2024-12-28 08:03] LABS: BLOOD UREA NITROGEN 18 MG/DL (9-23); CALCIUM LEVEL 8.5 MG/DL (8.3-10.6); CARBON DIOXIDE LEVEL 40 MMOL/L (20-31); CHLORIDE LEVEL 94 MMOL/L (98-107); CREATININE FOR GFR 0.46 MG/DL (0.70-1.30); GLOMERULAR FILTRATION RATE > 60.0 (>49); GLUCOSE, FASTING 139 MG/DL (74-106); POTASSIUM SERUM 4.9 MMOL/L (3.5-5.1); SODIUM LEVEL 137 MMOL/L (136-145)
[2024-12-28] MEDS: IPRATROPIUM 0.5MG/ALBUTEROL 2.5MG INH SOL UD 3ML (DUONEB) NEB PRN (20:19)
[2024-12-29 00:08] VITALS: BP 133/76; TEMP 97.9; O2SAT 90
[2024-12-29 03:48] VITALS: BP 119/59; TEMP 96.9; O2SAT 100
[2024-12-29 06:46] LABS: HEMATOCRIT 42.1 % (42.0-52.0); HEMOGLOBIN 12.5 g/dl (13.5-17.5); MEAN CORPUSCULAR HEMOGLOBIN 29.1 pg (27.0-33.0); MEAN CORPUSCULAR HGB CONC 29.7 g/dl (32.0-36.5); MEAN CORPUSCULAR VOLUME 97.9 fl (80.0-96.0); PLATELET COUNT, AUTOMATED 216 10^3/uL (150-450); WHITE BLOOD COUNT 8.1 10^3/uL (4.0-10.0)
[2024-12-29 07:23] LABS: BLOOD UREA NITROGEN 21 MG/DL (9-23); CARBON DIOXIDE LEVEL > 40.0 MMOL/L (20-31); CHLORIDE LEVEL 94 MMOL/L (98-107); CREATININE FOR GFR 0.42 MG/DL (0.70-1.30); GLOMERULAR FILTRATION RATE > 60.0 (>49); GLUCOSE, FASTING 179 MG/DL (74-106); MAGNESIUM LEVEL 2.2 MG/DL (1.8-2.4); POTASSIUM SERUM 4.8 MMOL/L (3.5-5.1); SODIUM LEVEL 139 MMOL/L (136-145)
[2024-12-29 07:48] VITALS: BP 102/60; TEMP 98.5; O2SAT 100
[2024-12-29] MEDS: oxyCODONE 10 MG CR TAB PO SCH (09:05)
[2024-12-29 12:02] VITALS: BP 102/58; TEMP 98; O2SAT 94
[2024-12-29] MEDS ORDERED: HYOSCYAMINE SULFATE 0.125 MG SUBL TABLET PO PRN (13:05)
[2024-12-29] MEDS ORDERED: ATROPINE SULFATE 1% OPHTH SOLN 2ML BTL SL PRN (13:05)
[2024-12-29] MEDS ORDERED: ONDANSETRON 4MG ORAL DISINTEGRATING TAB PO PRN (13:05)
[2024-12-29 15:34] VITALS: BP 111/66; TEMP 98.2; O2SAT 99
[2024-12-29] MEDS: MORPHINE SULFATE TAB EXT REL 15 MG PO SCH (21:20)
[2024-12-30] MEDS: predniSONE 20 MG TAB PO SCH (09:39)
[2024-12-30] MEDS: MORPHINE SULFATE TAB EXT REL 15 MG PO SCH (23:33)
[2024-12-31] MEDS: MORPHINE 10MG/0.5ML ORAL CONCENTRATE SOLUTION U/D SL PRN (03:43)
[2024-12-31] MEDS: LORazepam 1 MG TAB PO PRN (03:43)
[2024-12-31] MEDS: MORPHINE SULFATE TAB EXT REL 30 MG PO SCH (22:24)
[2025-01-02] MEDS: LEVOTHYROXINE 100MCG TABLET (0.1MG) PO SCH (04:44)
[2025-01-02 20:11] VITALS: O2SAT 6
== END 2025-01-04 04:49 | disposition expired | DRG 136 ==
LOC: M ED 14:46 → M ED INP 14:47 → OBSVTOIN 12-22 09:12 → M PCU 12-22 21:19 → M MS5PR 12-30 12:58
PROVIDERS: ADMIT Family Medicine; ATTEND Internal Medicine
PROC: 0W993ZZ Drainage of Right Pleural Cavity, Percutaneous Approach (ICD-10-PCS; principal; 2024-12-25 15:00)
DX: C34.11 Malignant neoplasm of upper lobe, right bronchus or lung (principal); R57.1 Hypovolemic shock; G92.9 Unspecified toxic encephalopathy; J18.9 Pneumonia, unspecified organism; J91.0 Malignant pleural effusion; C78.02 Secondary malignant neoplasm of left lung; J96.01 Acute respiratory failure with hypoxia; J96.02 Acute respiratory failure with hypercapnia; C78.1 Secondary malignant neoplasm of mediastinum; I82.622 Acute embolism and thrombosis of deep veins of left upper extremity; C79.51 Secondary malignant neoplasm of bone; E11.51 Type 2 diabetes mellitus with diabetic peripheral angiopathy without gangrene; I87.1 Compression of vein; J44.0 Chronic obstructive pulmonary disease with (acute) lower respiratory infection; J44.1 Chronic obstructive pulmonary disease with (acute) exacerbation; E03.9 Hypothyroidism, unspecified; F12.90 Cannabis use, unspecified, uncomplicated; F14.10 Cocaine abuse, uncomplicated; F17.210 Nicotine dependence, cigarettes, uncomplicated; G89.3 Neoplasm related pain (acute) (chronic); I10 Essential (primary) hypertension; J98.11 Atelectasis; Z51.5 Encounter for palliative care; Z79.899 Other long term (current) drug therapy; Z92.3 Personal history of irradiation; Z79.01 Long term (current) use of anticoagulants; Z92.21 Personal history of antineoplastic chemotherapy; Z66 Do not resuscitate

== ENCOUNTER 2024-12-24 13:15 | Outpatient (RCR) | payer OTHER ==
[~2024-12-24 13:15] MED LIST changes: +OMEGCAP4 PO; +med rec comment
== END 2025-01-04 | disposition expired ==
LOC: M ONCR 13:15
PROVIDERS: ATTEND General Practice
DX: Z51.0 Encounter for antineoplastic radiation therapy (principal); C34.11 Malignant neoplasm of upper lobe, right bronchus or lung